=== PATIENT | male | born 1945 | race Caucasian/White ===

== ENCOUNTER 2018-06-13 02:55 | Inpatient (IN) ==
[2018-06-13] MEDS ORDERED: MoRPHine SULFATE 10 MG/ML CARP/VIAL IV STA (03:28)
[2018-06-13] MEDS ORDERED: SODIUM CHLORIDE 0.9% 1000ML 1,000 ML IV ONE (03:28)
[2018-06-13 03:43] LABS: Basophils # (auto) 0.05 K/uL (0-0.2); Basophils % (auto) 0.4 %; Eosinophils # (auto) 0.15 K/uL (0-0.5); Eosinophils % (auto) 1.1 %; Hematocrit (blood only) 45.6 % (42-52); Hemoglobin 15.5 g/dL (14.0-18.0); Immature Granulocytes # (auto) 0.06 K/uL (0.00-0.02); Immature Granulocytes % (auto) 0.4 %; Lymphocytes # (auto) 3.19 K/uL (1.2-3.4); Lymphocytes % (auto) 22.5 %; Mean Corpuscular Volume 91.6 fL (80-100); Mean Platelet Volume 10.2 fL (7.4-10.4); Monocytes # (auto) 1.03 K/uL (0.11-0.59); Monocytes % (auto) 7.3 %; Neutrophils # (auto) 9.71 K/uL (1.4-6.5); Neutrophils % (auto) 68.3 %; Platelet Count 195 K/uL (130-400); Red Blood Count 4.98 M/uL (4.7-6.1); White Blood Count 14.19 K/uL (4.8-10.8)
[2018-06-13 03:52] LABS: iSTAT Ionized Calcium 1.15 mmol/l (1.12-1.32)
[2018-06-13] MEDS ORDERED: fentaNYL citrate 100 MCG/2 ML VIAL IV STA (03:57)
[2018-06-13 04:00] LABS: Alanine Aminotransferase 26 U/L (12-78); Albumin Level 3.4 gm/dl (3.4-5.0); Aspartate Aminotransferase 14 U/L (15-37); Bilirubin Direct < 0.1 mg/dl (0-0.2); Blood Urea Nitrogen 13 mg/dl (7-18); Calcium 8.7 mg/dl (8.5-10.1); Carbon Dioxide 27 mmol/L (21-32); Chloride 105 mmol/L (98-107); Creatinine Clr Calc Pharmacy 65.5 ml/min; Est GFR (African American) 85.7; Glucose 132 mg/dl (70-99); Potassium 3.6 mmol/L (3.5-5.1); Sodium 138 mmol/L (136-145)
[2018-06-13 04:03] LABS: Alkaline Phosphatase 81 U/L (45-117); Bilirubin,Total 0.3 mg/dl (0.2-1); Total Protein 7.4 gm/dl (6.4-8.2)
[2018-06-13] MEDS ORDERED: OPTIRAY 320 125ml IV PRN (04:05)
[2018-06-13] MEDS ORDERED: SODIUM CHLORIDE 0.9% 1000ML 1,000 ML IV SCH (04:30)
[2018-06-13] MEDS ORDERED: HYDROmorphone INJ 1 MG/ML SYRINGE IV STA (04:37)
[2018-06-13 04:53] LABS: Prothrombin Time 10.1 Seconds (9.0-12.0)
--- NOTE | 2018-06-13 05:36 | History & Physical Report ---
Date of Service June 13, 2018 Assessment & Plan (1) Incarcerated ventral hernia: pt with signs/symptoms of ischemia unable to reduce ct scan reviewed will need OR for ex-lap /cain JORGE ALBERTO. team called discussed options/risks ( bleeding/infection/dvt/pe/mi/cva/injury to other organs, possible bowel resection etc... questions answered. pt agreeable. History of Present Illness Primary Care Provider: Serenity Beebe pt with acute onset of severe 9/10 mid abdominal pain around 9 pm this evening. was out with family eating pizza earlier. no hx of same. +nausea. Allergies Allergy/AdvReac Type Severity Reaction Status Date / Time Penicillins Allergy Intermediate Swelling Verified 06/13/18 03:54 of Lip/Tongue/Throat Home Medications Home Medications Medication Instructions Recorded Confirmed Type No Known Home Medications 06/13/18 06/13/18 History Past Med/Surg History Social History Feels Safe at Home: Yes Smoking Status: Current every day smoker Review of Systems All systems reviewed & are unremarkable except as noted in HPI & below Physical Exam 2 Vital Signs (Past 24 Hours): Last Vital Signs Temp 36.4 C L 06/13/18 03:01 Pulse 76 06/13/18 03:48 Resp 24 06/13/18 03:48 BP 109/77 06/13/18 03:48 Pulse Ox 96 06/13/18 03:48 Physical Exam: pt writhing in pain +distress holding mid abdomen Heent: Perrla. eomi. heart: regular/tachy lungs: clear b/l abdomen: +distended. + incarcerated mid abdominal hernia. also has large right flank hernia ext: no edema.
--- NOTE | 2018-06-13 05:51 | Anesthesiology Consultation ---
Date of Service June 13, 2018 The patient does not regularly follow up with a primary care provider. Patient' s SpO2 is 99 on 5 L face mask in preop holding. Assessment & Plan (1) Encounter for pre-operative examination: Chart Review Chart Review: Acceptable Risk for Surgery Consults Requested none ASA [id number] Proposed Anesthesia Anesthesia Type: General Risk / Benefits Reviewed With: PT / POA / Parent / Guardian, Accepts Plan and Informed Consent Obtained NPO Date Last Intake of Fluids: 06/13/18 Time Last Intake of Fluids: 04:30 Last Intake of Fluids Comment: sip water Date Last Intake of Solids: 06/12/18 Time Last Intake of Solids: 22:30 Last Intake of Solids Comment: pizza History Surgery Operation Date: 06/13/18 06:00 Proposed Procedures p Exploratory Laparotomy - David Alva DO Height/Weight Height: 5 ft 6 in Weight: 79.5 kg Allergies Allergy/AdvReac Type Severity Reaction Status Date / Time Penicillins Allergy Intermediate Swelling Verified 06/13/18 03:54 of Lip/Tongue/Throat Medications Home Medications Medication Instructions Recorded Confirmed Last Taken No Known Home Medications 06/13/18 06/13/18 Unknown Active Medications Generic Name Dose Route Start Last Admin Trade Name Freq PRN Reason Stop Dose Admin Sodium Chloride 1,000 mls @ 125 mls/hr 06/13/18 04:30 06/13/18 04:31 Nss 1000ml IV 07/13/18 04:29 125 mls/hr .Q8H BRANDIE Administration Ioversol 117 ml 06/13/18 04:05 06/13/18 04:05 Optiray 320 125ml IV 06/17/18 04:04 1 ml ONCE PRN Administration Interaction Checking Past Medical History Medical History Arthritis knees History of kidney cancer Obesity enlarged abdomen Smoker Past Surgical History Surgical History History of exploratory laparotomy patient had SBO 10 years ago History of laparoscopic cholecystectomy History of nephrectomy, unilateral R kidney due to cancer Past Anesthesia History No Hx of Anesthesia Complications and No Family Hx of Anesthesia Complications History of PONV No Motion Sickness Screening History of Motion Sickness: No Social History 50 years Smoking Status: Current every day smoker Smoking cigarettes per day: 1/2 ppd Hx Alcohol Use: Yes Alcohol type: beer alcohol intake frequency: a few times a week Exercise / Class Metabolic Activity III < 4 Walking/Shop/Light housework no chest pain or sob Review of Systems patient has abdominal pain, no chest pain or sob Physical Exam Vital Signs Last Vital Signs Temp 36.4 C L 06/13/18 03:01 Pulse 89 06/13/18 05:35 Resp 24 06/13/18 05:35 BP 120/69 06/13/18 05:35 Pulse Ox 88 L 06/13/18 05:35 Constitutional + acute distress (patient with abd pain) ENMT Mouth: + edentulous Thyromental Distance: > or= 3.5 Finger Breadths Mallampati Class: II NG in place Neck + facial hair Respiratory normal respiratory effort Auscultation: + diminished lung sounds Cardiovascular Rate/Rhythm: regular rate and regular rhythm Neurologic moves all extremities Psychiatric Orientation: alert and oriented x 3 Testing Electrocardiogram Date: 06/13/18 Findings: + NSR @ (80) inferior infarct, age undetermined anterior infarct, age undetermined Chest X-Ray Date: 06/13/[address] Laboratory Results 06/13/18 03:32 06/13/18 03:32 PT 10.1 Seconds (9.0-12.0) 06/13/18 03:32 INR 1.0 (0.9-1.1) 06/13/18 03:32 APTT 27.0 Seconds (21.0-31.0) 06/13/18 03:32 06/13/18 03:38 POC Glucose (other) 139 H
[2018-06-13] MEDS ORDERED: fentaNYL citrate 100 MCG/2 ML VIAL ONE (06:09)
[2018-06-13] MEDS ORDERED: SUCCINYLCHOLINE CHLORIDE 20 MG/ML 10 ML VIAL ONE (06:09)
[2018-06-13] MEDS ORDERED: PROPOFOL IV EMULSION 10 MG/ML 20 ML VIAL IV ONE (06:09)
[2018-06-13] MEDS ORDERED: LIDOCAINE HCL 2% 2 ML VIAL/AMP(20MG/ML) INFIL ONE (06:09)
[2018-06-13] MEDS ORDERED: CLINDAMYCIN 600 MG/54 ML D5W IV ONE (06:27)
[2018-06-13] MEDS ORDERED: CLINDAMYCIN PHOS 300 MG/2 ML VIAL ONE (06:29)
--- NOTE | 2018-06-13 06:59 | XRay Report ---
SINGLE VIEW CHEST CLINICAL HISTORY: Preoperative examination. An enteric tube placement. FINDINGS: An AP, portable, upright chest radiograph is compared to study dated 07/31/2006. The examina tion is degraded by portable technique and patient rotation. An enteric tube has been placed. The ti p projects below the diaphragm over the stomach. The heart is mildly enlarged. There is atherosclerot ic calcification with uncoiling of the thoracic aorta the pulmonary vasculature is noncongested. Slot Technician kojo additional thickening is similar to previous. There is bibasilar scarring/atelectasis. No airspac e consolidation or large pleural effusion is identified. A calcified nodule is noted at the medial ri ght lung base. No pneumothorax is seen. The skeletal structures are osteopenic. The bony thorax is gr ossly intact. Arthritic change is noted in the shoulders. Cholecystectomy clips are noted in the righ t upper quadrant. IMPRESSION: 1. An enteric tube has been placed. The tip projects below the diaphragm. 2. Cardiac enlargement without radiographic evidence of congestive failure. 2. No airspace consolidation or large pleural effusion is identified. Electronically signed by: Benjy Hernandez M.D. 06/13/2018 6:57 AM
[2018-06-13] MEDS ORDERED: DEXAMETHASONE SOD INJ 4 MG/ML VIAL ONE (07:03)
[2018-06-13] MEDS ORDERED: ONDANSETRON INJ 2 MG/ML 2 ML VIAL ONE (07:04)
--- NOTE | 2018-06-13 07:04 | Emergency Department Note ---
Entered by Mayco Oconnell acting as a scribe for ED Provider Note Name: Sonu Knox Age: 72 Arrives Via: Private vehicle Informant: Patient CC: Abdominal pain HPI: The patient is a 72 year old male who presents to ER via private vehicle with family due to complaints of waxing and waning central abdominal pain that began tonight. Patient adds that the pain radiates to the right side of his abdomen. He states he has had a right wall abdominal hernia for the past ten years but that it is sticking out more than usual. Patient denies using any OTC pain medications for his symptoms. Patients past medical history also includes SBO five years ago, right nephrectomy, and cholecystectomy. He states each of his procedures were done at [facility]. Patient denies having a bowel movement in the past day. He states he is a smoker and drinks alcohol on the weekends. He adds that he has a penicillin allergy. Patient denies urinary symptoms, diarrhea, nausea, or fevers. He also denies a history of heart problems, HTN, or kidney failure. ROS: See above HPI for pertinent positives & negatives. A total of 10 systems reviewed and were otherwise negative. Past Medical History: SBO Past Surgical History: Right nephrectomy and cholecystectomy Family History: None Social History: Lives with family Home Medications: None Allergies None Physical: Vitals: BP = 109/77 P = 76 Resp = 24 Temp = 97.5 O2 Sat = 96 Delivery = Room Air Exam: GENERAL: Patient is uncomfortable appearing and in moderate distress. EYES: No scleral icterus, unremarkable pupils. ENT: Mucous membranes moist, no nasal congestion. NECK: No masses appreciated, no meningismus, trachea is midline. RESPIRATORY: No dyspnea. Clear to auscultation and equal bilaterally. No wheeze , no rhonchi. CARDIOVASCULAR: Regular rate and rhythm. No murmurs, rubs, gallops appreciated. GASTROINTESTINAL: Large right abdominal wall hernia, right ventral hernia with distension and tenderness to palpation otherwise abdomen soft, no peritonitis. Hyperactive bowel sounds. No masses appreciated. BACK: No midline tenderness, no CVA tenderness EXTREMITIES: Normal motion all extremities, no cyanosis, no edema. NEUROLOGIC: Alert and oriented, no acute motor or sensory deficits, no focal weakness, cranial nerves grossly intact. SKIN: No rash, no jaundice, no diaphoresis. ED Course: Prior Medical Record, Triage/Nursing Notes, Medications, Allergies reviewed by Me Vital Signs: reviewed and remarkable for wnl Labs: Reviewed and remarkable for normal cbc, bmp, lft, lipase, LA Interventions: Saline Lock, NSS bolus, Morphine 8mg IV, Fentanyl 100mcg IV, Dilaudid 1 G IV, NG Tube Imaging: X ray results are stated below per my interpretation: Chest: 1 view: No infiltrate, no effusion, normal cardiac border. [employer] Radiologist interpretation reviewed by me: CT ABDOMEN & PELVIS With Contrast: "Large umbilical hernia containing dilated and decompressed small bowel, consistent with small bowel obstruction. Transition point is at the hernia neck. No evidence for ischemia." Radiologist: Timoteo Gerber MD EKG: Per My Interpretation: NSR 80bpm, no ectopy, no ischemia, no recent for comparison. QTC 440. Consults: 0443: I reviewed the patient's case with Dr. Alva. He will evaluate the patient at bed-side. Times: 0313: Past medical records reviewed. The patient was evaluated in room B7 , and a complete history and physical examination were performed. 0412: I reevaluated the patient. He is still hurting significantly. Patient has significant tenderness to palpation over ventral hernia. I am unable to reduce the hernia. 0435: NG Tube was placed. Patient intially started putting out but now it is blocked. Nursing staff is trying to resolve the blockage. Patient states his pain is continuing and worsening in ventral abdomen. 0453: Nursing is working on flushing the patient's NG tube. 0512: Patient has put out almost a liter from NG tube. He states he is still in significant pain. Patient is awaiting bed-side evaluation by Dr. Alva. 0526: General surgery is at bed-side. Patient will be transferred to the OR for an ischemic incarcerated bowel. Nursing staff is trying to suck out any remaining bowel contents. Blood pressure: Normal. No Referral necessary Disposition: Transfer to OR Differentials: Bowel obstruction, incarcerated bowel, pancreatitis, liver disease, intra-abdominal infection, gastroenteritis, amongst other pathologies. Medical Decision Makin yr old male arrives with acute anterior abdominal pain and nausea. History of right nephrectomy 20 yrs ago with SBO requiring surgery 10 yrs ago. Arrives with exam consistent with obstruction and a large right hernia easily reducible but unable to reduce very painful anterior ventral hernia. Given multiple rounds IV narcotics for pain control. LA initial wnl. CT with anterior hernia as transition point for SBO, no ischemia noted. With persistent pain and exam findings I feel he likely does have developing ischemia of what is clearly incarcerated ventral hernia thus Gen Surg paged. NG tube placed and after extensive flushing/clearing of tubing by nursing they were able to get >> 1L gastric output continuing chunks of pizza (no blood noted). Gen Surg at bedside and agree with assessment and will plan to take emergently to OR for definitive management. Patient was put on NC O2 after multiple narcotics due to mild hypoxia though still protecting airway well. Impression: Incarcerated Incisional Hernia Small Bowel Obstruction Acute Ischemia of Small Intestine Critical Care: I have personally spent greater than 45 minutes of critical care time in the direct management of this patient. Acute bowel ischemia of ventral hernia secondary to incarcerated bowel and resultant SBO requiring emergent transfer to OR with surgeon. This was a life/limb threatening event. This includes time spent evaluating patient, direct bedside care, chart review, placing orders, interpretation of diagnostic studies, discussion with consultants, patient, and family members, as well as other required patient management activities. This 45 minutes is in excess of all separately billable procedures. Roman West MD The scribe's documentation has been prepared under my direction and personally reviewed by me in its entirety. I confirm that the note above accurately reflects all work, treatment, procedures, and medical decision making performed by me. Impression & Plan Incarcerated incisional hernia, Small bowel obstruction, Acute ischemia of small intestine Past Med/Surg History Medical History Arthritis knees History of kidney cancer Obesity enlarged abdomen Smoker Surgical History History of exploratory laparotomy patient had SBO 10 years ago History of laparoscopic cholecystectomy History of nephrectomy, unilateral R kidney due to cancer Social History Feels Safe at Home: Yes Smoking Status: Current every day smoker Cigarettes per Day: 1/2 ppd Hx Alcohol Use: Yes Alcohol type: beer Alcohol Intake Frequency: a few times a week Results & Data Vital Signs Vital Signs - 24 hr 06/13/18 03:01 06/13/18 03:48 06/13/18 05:35 Temperature 36.4 C L Temperature Source Oral Sepsis Recent Fever Within 48 Hours No Sepsis Action Taken by Nursing No Action Required Pulse Rate 86 89 Pulse Rate [Finger] 76 Respiratory Rate 18 24 24 Respiratory Effort / Characteristics Non-Labored Spontaneous Respiratory Depth Normal Respiratory Pattern Regular Blood Pressure 132/81 120/69 Blood Pressure [Left Arm] 109/77 Blood Pressure Mean 98 Blood Pressure Mean [Left Arm] 87 Blood Pressure Position Sitting Pulse Oximetry 97 96 88 L Oxygen Delivery Method Room Air Room Air Laboratory Data Result diagrams: 06/13/18 03:32 06/13/18 03:32 Lab Results 06/13/18 06/13/18 06/13/18 Range/Units 03:32 03:32 03:32 WBC 14.19 H (4.8-10.8) K/uL RBC 4.98 (4.7-6.1) M/uL Hgb 15.5 (14.0-18.0) g/dL POC Hgb (14.0-18.0) g/dl Hct 45.6 (42-52) % POC Hct (42-52) % MCV 91.6 (80-100) fL MCH 31.1 (25-34) pg MCHC 34.0 (32-36) g/dL RDW Std Deviation 47.0 H (36.4-46.3) fL RDW Coeff of Gabriela 14.0 (11.5-14.5) % Plt Count 195 (130-400) K/uL MPV 10.2 (7.4-10.4) fL Immature Gran % (Auto) 0.4 % Neut % (Auto) 68.3 % Lymph % (Auto) 22.5 % Aurora % (Auto) 7.3 % Eos % (Auto) 1.1 % Baso % (Auto) 0.4 % Immature Gran # (Auto) 0.06 H (0.00-0.02) K/uL Neut # (Auto) 9.71 H (1.4-6.5) K/uL Lymph # (Auto) 3.19 (1.2-3.4) K/uL Aurora # (Auto) 1.03 H (0.11-0.59) K/uL Eos # (Auto) 0.15 (0-0.5) K/uL Baso # (Auto) 0.05 (0-0.2) K/uL PT (9.0-12.0) Seconds INR (0.9-1.1) APTT (21.0-31.0) Seconds PTT Ratio POC Sodium (135-144) mEq/L Sodium 138 (136-145) mmol/L POC Potassium (3.3-5.0) mEq/L Potassium 3.6 (3.5-5.1) mmol/L POC Chloride (101-112) mEq/L Chloride 105 (98-107) mmol/L Carbon Dioxide 27 (21-32) mmol/L POC Total CO2 (24-31) mEq/l Anion Gap 6.0 (3-11) POC Anion Gap (16-25) mmol/L POC BUN (7-18) mg/dl BUN 13 (7-18) mg/dl Creatinine 1.01 (0.6-1.4) mg/dl POC Creatinine (0.6-1.3) mg/dl Est Cr Clr Drug Dosing 65.5 ml/min Est GFR ( Amer) 85.7 Est GFR (Non-Af Amer) 74.0 BUN/Creatinine Ratio 13.0 (10-20) Glucose 132 H (70-99) mg/dl POC Glucose (other) (70-99) mg/dl Lactate 1.5 (0.4-2.0) mmol/L Calcium 8.7 (8.5-10.1) mg/dl POC Ioniz Calcium Chasidy (1.12-1.32) mmol/l Total Bilirubin 0.3 (0.2-1) mg/dl Direct Bilirubin < 0.1 (0-0.2) mg/dl AST 14 L (15-37) U/L ALT 26 (12-78) U/L Alkaline Phosphatase 81 (45-117) U/L Total Protein 7.4 (6.4-8.2) gm/dl Albumin 3.4 (3.4-5.0) gm/dl Lipase 168 (73-393) U/L 06/13/18 06/13/18 Range/Units 03:32 03:38 WBC (4.8-10.8) K/uL RBC (4.7-6.1) M/uL Hgb (14.0-18.0) g/dL POC Hgb 16.0 (14.0-18.0) g/dl Hct (42-52) % POC Hct 47 (42-52) % MCV (80-100) fL MCH (25-34) pg MCHC (32-36) g/dL RDW Std Deviation (36.4-46.3) fL RDW Coeff of Gabriela (11.5-14.5) % Plt Count (130-400) K/uL MPV (7.4-10.4) fL Immature Gran % (Auto) % Neut % (Auto) % Lymph % (Auto) % Aurora % (Auto) % Eos % (Auto) % Baso % (Auto) % Immature Gran # (Auto) (0.00-0.02) K/uL Neut # (Auto) (1.4-6.5) K/uL Lymph # (Auto) (1.2-3.4) K/uL Aurora # (Auto) (0.11-0.59) K/uL Eos # (Auto) (0-0.5) K/uL Baso # (Auto) (0-0.2) K/uL PT 10.1 (9.0-12.0) Seconds INR 1.0 (0.9-1.1) APTT 27.0 (21.0-31.0) Seconds PTT Ratio 1.0 POC Sodium 140 (135-144) mEq/L Sodium (136-145) mmol/L POC Potassium 3.5 (3.3-5.0) mEq/L Potassium (3.5-5.1) mmol/L POC Chloride 102 (101-112) mEq/L Chloride (98-107) mmol/L Carbon Dioxide (21-32) mmol/L POC Total CO2 28 (24-31) mEq/l Anion Gap (3-11) POC Anion Gap 15.0 L (16-25) mmol/L POC BUN 12 (7-18) mg/dl BUN (7-18) mg/dl Creatinine (0.6-1.4) mg/dl POC Creatinine 1.0 (0.6-1.3) mg/dl Est Cr Clr Drug Dosing ml/min Est GFR ( Amer) Est GFR (Non-Af Amer) BUN/Creatinine Ratio (10-20) Glucose (70-99) mg/dl POC Glucose (other) 139 H (70-99) mg/dl Lactate (0.4-2.0) mmol/L Calcium (8.5-10.1) mg/dl POC Ioniz Calcium Chasidy 1.15 (1.12-1.32) mmol/l Total Bilirubin (0.2-1) mg/dl Direct Bilirubin (0-0.2) mg/dl AST (15-37) U/L ALT (12-78) U/L Alkaline Phosphatase (45-117) U/L Total Protein (6.4-8.2) gm/dl Albumin (3.4-5.0) gm/dl Lipase (73-393) U/L Administered Medications Sodium Chloride (Nss 1000ml) 1,000 mls @ 125 mls/hr IV .Q8H BRANDIE Stop: 07/13/18 04:29 Last Admin: 06/13/18 04:31 Dose: 125 mls/hr Ioversol (Optiray 320 125ml) 117 ml IV ONCE PRN PRN Reason: Interaction Checking Stop: 06/17/18 04:04 Last Admin: 06/13/18 04:05 Dose: 1 ml Discontinued Medications Fentanyl Citrate (Fentanyl Citrate) 100 mcg IV NOW STA Stop: 06/13/18 03:58 Last Admin: 06/13/18 04:19 Dose: 100 mcg Hydromorphone HCl (Dilaudid) 1 mg IV NOW STA Stop: 06/13/18 04:38 Last Admin: 06/13/18 05:13 Dose: 1 mg Sodium Chloride (Nss 1000ml) 1,000 mls @ 999 mls/hr IV .Q1H1M ONE Stop: 06/13/18 04:28 Last Admin: 06/13/18 03:46 Dose: 999 mls/hr Morphine Sulfate (Morphine Sulfate) 8 mg IV NOW STA Stop: 06/13/18 03:29 Last Admin: 06/13/18 03:46 Dose: 8 mg Discharge Plan Visit Data Chief Complaint: Abdominal Pain Stated Complaint: ABD PAIN WITH HERNIA ED Provider: Roman West Discharge Problem: Incarcerated incisional hernia, Small bowel obstruction, Acute ischemia of small intestine Patient Disposition: Being Evaluated by Surgeon Discharge Instructions Interventions: ED Discharge Assessment Last Done: 06/13/18 05:35 The scribe's documentation has been prepared under my direction and personally reviewed by me in its entirety. I confirm that the note above accurately reflects all work, treatment, procedures, and medical decision making performed by me.
[2018-06-13] MEDS ORDERED: ePHEDrine sulfate 50 MG/ML AMP IV PRN (07:38)
[2018-06-13] MEDS ORDERED: HYDROmorphone INJ 1 MG/ML SYRINGE IV PRN (07:38)
[2018-06-13] MEDS ORDERED: PHENYLEPHRINE 100MCG/ML 5ML SYR IV PRN (07:38)
[2018-06-13] MEDS ORDERED: LABETALOL HCL IV 5 MG/ML 20ML IV PRN (07:38)
[2018-06-13] MEDS ORDERED: MEPERIDINE HCL 25 MG/ML CARP IV PRN (07:38)
[2018-06-13] MEDS ORDERED: ONDANSETRON INJ 2 MG/ML 2 ML VIAL IV PRN ×2 (07:38→09:16)
[2018-06-13] MEDS ORDERED: fentaNYL citrate 100 MCG/2 ML VIAL IV PRN (07:38)
[2018-06-13] MEDS ORDERED: ATROPINE SULFATE 0.1 MG/ML 10ML SYR IV PRN (07:38)
--- NOTE | 2018-06-13 07:44 | CT Scan Report ---
CT SCAN OF THE ABDOMEN AND PELVIS WITH IV CONTRAST CLINICAL HISTORY: Generalized abdominal pain. COMPARISON STUDY: Abdominal radiograph dated 08/03/2006. TECHNIQUE: Following the IV administration of 98 cc of Optiray 320, CT scan of the abdomen and pelvi s is performed from the lung bases to the proximal femora. Images are reviewed in the axial, sagittal , and coronal planes. IV contrast was administered without complication. A dose lowering technique wa s utilized adhering to the principles of ALARA. The examination is modestly degraded by motion artifa ct. CT DOSE: 726.13 mGy.cm FINDINGS: Lung bases: The heart is normal in size and without pericardial effusion. There is a 1.7 cm densely c alcified nodule the right lung base. No airspace consolidation or pleural effusion is identified. Liver: The contrast-enhanced liver is normal in size, contour, and attenuation. There is mild central intrahepatic biliary ductal dilatation. The hepatic veins and portal veins are patent. Gallbladder: Surgically absent noting clips in the gallbladder fossa. Spleen: Normal in size and attenuation. Pancreas: Atrophic and grossly unremarkable. Adrenal glands: Unremarkable. Kidneys: The right kidney is not identified and presumed surgically absent. There is inferior locatio n of the left kidney which demonstrates cortical atrophy and is without hydronephrosis. The left kidn ey enhances homogeneously. Left renal cysts measure up to 5.3 cm. There is a 3.1 cm lesion in the int erpolar left kidney seen on image #[address] which does [address] CT criteria for a simple cyst. Additional subcentimeter cortical hypodensities likely represent cysts but are too small for definitive characte rization. Abdominal vasculature: There is moderate to advanced atherosclerotic calcification of the abdominal a hasmukh. A small thrombosed saccular aneurysm of the distal abdominal aorta is seen on image #220 and me asures up to 2.0 cm. Bowel: There is a large complex umbilical/periumbilical hernia which contains small bowel loops. Ther e is a discrete transition point identified involving this hernia on image were 255. The upstream sma ll bowel loops and stomach are distended and fluid-filled. The proximal small bowel loops measure up to 3.8 cm in diameter. The small bowel loops exiting the hernia sac and colon are decompressed, and t he appearance is consistent with a small bowel obstruction. An additional decompressed loop of small bowel is present within the same hernia sac. There is no pneumatosis intestinalis or portal venous ga s. No focally thick walled bowel loops are identified. A large hernia in the right lateral abdominal wall contains loops of small bowel and the cecum. The appendix is well-visualized and normal. Peritoneum: There is no intraperitoneal free air or abdominal ascites. There are at least 3 large sup raumbilical hernias which do not contain bowel loops. There is also a large infraumbilical hernia. Lymphadenopathy: None. Pelvic viscera: The prostate gland is diminutive and heterogeneous. The bladder is normal as imaged. There is a large fat-containing left inguinal hernia. Skeletal structures: The skeletal structures are osteopenic. Moderate lumbosacral spondylosis is obse rved. No lytic or blastic lesions are seen. IMPRESSION: 1. Findings are consistent with a high-grade small bowel obstruction. 2. There is a complex umbilical/periumbilical hernia which contains small bowel loops. An incarcerate d loop within this hernia represents the transition point of the bowel obstruction. 3. There is no intraperitoneal free air. No pneumatosis intestinalis, portal venous gas, or focally t hick walled bowel loop is identified. 4. There is a large right lateral abdominal wall hernia which contains loops of small bowel and the c ecum. 5. There are numerous additional supraumbilical hernias as well as a large infraumbilical hernia. 6. The right kidney is surgically absent. 7. There is a 3.1 cm lesion in the interpolar left kidney which does not meet CT criteria for simple cyst. Although this could represent a complex/hemorrhagic cyst, a renal neoplasm could appear similar . Correlation with any prior outside imaging studies is recommended. If no prior studies can be obtai kami, a follow-up renal protocol CT or MRI is recommended as neoplasm cannot be excluded. 8. 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 9. Additional findings as above. Electronically signed by: Benjy Hernandez M.D. 06/13/2018 7:42 AM
--- NOTE | 2018-06-13 07:49 | Operative Report ---
Post Operative Report Pre & Post Diagnosis Operation Date: 06/13/18 06:00 Pre-Op Diagnosis: Incarcerated ventral hernia Post-Op Diagnosis: Incarcerated ventral hernia Procedure Operation Date: 06/13/18 06:00 Actual Procedures p Exploratory Laparotomy, Release of small bowel obstruction, repair of incisional hernia times 3, Enterolysis - David Alva DO Surgeon David Alva DO Custom Miller n/a Estimated Blood Loss 10 Findings Consistent with Post-Op Diagnosis Specimens none Description of Procedure After informed consent was obtained the patient was taken to the operating room and placed in supine position. After successful intubation a Pagan catheter was placed and the abdomen was shaved and sterilely prepped and draped in usual fashion. After the paralytic agent the hernia was able to be manually reduced prior to incision. I then made a midline incision with a 10 blade scalpel from above his umbilicus down and around his umbilicus. We carried this down through the soft tissue using cautery. I encountered a hernia sac which I opened up using cautery. I was then able to enter the abdominal cavity. There were actually 3 hernias one at the umbilicus one at the area of incarceration and one at the superior aspect of the midline. I completely opened up and connected these fascial defects making one large fascial defect. I took down all of the hernia sacs using cautery. Once in the abdominal cavity I was able to find the area where he was obstructed. This was now reduced ...there was a line demarcating where the obstruction had been with some bruising although no serosal damage or tears. There was no infarcted bowel. I ran the entire length of the small bowel and other than some adhesions which I lysed there was no other abnormalities. There was a large right flank hernia which has been chronic in nature and certainly this would not be the appropriate time to try and repair this. There was some omental incarceration as well which I excised using electrocautery. I was able to grasp the fascial edges using dmitri clamps and skeletonized the fascia in 360 degrees. I then used #1 Ethibond in interrupted [id number] fashion to primarily close the defect. I did not feel it would be appropriate to place mesh at this time. Once I had the defect completely closed we thoroughly irrigated the wound. I closed the deep layers of the wound using 2-0 Vicryl and the skin closed using skin marcie. Silver dressing was applied. The patient was awakened extubated and transferred recovery in stable condition. I attest to the content of the Intraoperative Record and any orders documented therein. Any exceptions are noted below.
--- NOTE | 2018-06-13 08:41 | Anesthesiology Progress Note ---
Date of Service June 13, 2018 Anesthesia Post Procedure Vital Signs Vital Signs: Temp Pulse Pulse Pulse Resp BP BP 06/13/18 08:30 95 H 13 138/79 06/13/18 08:20 95 H 12 139/80 06/13/18 08:10 95 H 12 130/79 06/13/18 08:00 94 H 12 139/78 06/13/18 07:54 36.1 C L 92 H 16 141/82 H 06/13/18 05:35 89 24 120/69 06/13/18 03:48 76 24 109/77 06/13/18 03:01 36.4 C L 86 18 132/81 Pulse Ox 06/13/18 08:30 97 06/13/18 08:20 99 06/13/18 08:10 98 06/13/18 08:00 97 06/13/18 07:54 99 06/13/18 05:35 88 L 06/13/18 03:48 96 06/13/18 03:01 97 Pain Intensity Abdomen: Pain Intensity: 4 Notes Mental Status: alert / awake / arousable and participated in evaluation Nausea / Vomiting: adequately controlled Pain: adequately controlled Airway Patency, RR, SpO2: stable & adequate BP & HR: stable & adequate Hydration State: stable & adequate Anesthetic Complications: no major complications apparent and Pt Satisfied with anesthetic care
[2018-06-13] MEDS ORDERED: ACETAMINOPHEN 1,000 MG/100 ML VIAL IV PRN (09:16)
[2018-06-13] MEDS ORDERED: MoRPHine SULFATE 4 MG/ML 1 ML CARP\\VIAL IV PRN (09:16)
[2018-06-13] MEDS: LACTATED RINGER'S 1,000 ML IV SCH ×2 (10:46→18:41)
--- NOTE | 2018-06-13 11:25 | Consultation ---
Date of Consultation June 13, 2018 Assessment & Plan (1) Incarcerated ventral hernia: (2) S/P exploratory laparotomy: Post op day# 0 S/P Exploratory lap, release SBO by Dr Alva EB#10ml -pain management per general surgery -wound management per general surgery -DVT prophylaxis per surgery - Lovenox SQ -incentive spirometry -monitor H&H for acute blood loss anemia (3) Renal cancer: (4) History of nephrectomy, unilateral: Hx R renal cancer s/p R nephrectomy CT Abd/pelvis: There is a 3.1 cm lesion in the interpolar left kidney which does not meet CT criteria for simple cyst. Although this could represent a complex/hemorrhagic cyst, a renal neoplasm could appear similar. Correlation with any prior outside imaging studies is recommended. If no prior studies can be obtained, a follow- up renal protocol CT or MRI is recommended as neoplasm cannot be excluded. -last abdominal CT scan found from 1997 did not mention L renal lesion -will need further follow up (5) Tobacco use: -recommend smoking cessation -denies nictotine patch DVT Prophylaxis -Lovenox SQ per surgery In past pt had followed with Dr Beebe for routine care - has not seen for years Pt was seen with Dr Inman. See addendum Pt will be followed by Dr Guerra during remaining hospital course. Supervising Physician Co-Signing Physician Notes I saw this patient with the physician psychologist research assistant, I participated in the history, physical, review of systems, and physical exam. I reviewed the medications with the patient and the physician psychologist research assistant and helped reconcile the medications. I helped take a detailed family and social history as well. I formulated the assessment and plan personally with the physician psychologist research assistant and went over it with the patient. History of Present Illness Reason for Consultation: Medical management consultation Attending Physician: David Alva, History of Present Illness Patient is a 72-year-old male with past medical history right renal cancer s/p right nephrectomy, abdominal hernia presented to ER with complaint of central abdominal pain. In ER was found to have SBO, incarcerated ventral hernia and patient was taken to the OR today and had exploratory laparoscopy, release small bowel obstruction, ventral hernia repair. Patient currently reports some central abdominal pain. Has NG tube in place. Denies nausea. Reports last BM 1 day ago. Has Pagan catheter in place. Denies fever/chills, WOODY, dizziness, CP , SOB, paresthesias, extremity edema. Allergies Allergy/AdvReac Type Severity Reaction Status Date / Time Penicillins Allergy Intermediate Swelling Verified 06/13/18 03:54 of Lip/Tongue/Throat Home Medications Home Medications Medication Instructions Recorded Confirmed Type No Known Home Medications 06/13/18 06/13/18 History Patient History Medical History Tobacco use (Chronic) History of nephrectomy, unilateral (Chronic) R kidney Renal cancer (Resolved) Arthritis knees Obesity enlarged abdomen Smoker Surgical History History of repair of rotator cuff (Resolved) History of cholecystectomy (Chronic) History of nephrectomy, unilateral (Chronic) R kidney due to cancer History of exploratory laparotomy (Resolved) 2006 - patient had SBO, lysis adhesions By Dr Orozco Social History Current Living Situation: Other Current Living Situation Comment: LIVES WITH HIS EX- Other Information That Helps Us Care for You: No Feels Safe at Home: No Is there a partner from a previous relationship who is making you feel unsafe now?: No Any Concerns about Your Family Situation: No Would You Like to Speak to Someone About Your Situation: No Safety Concerns: Feels Safe At This Time Smoking Status: Current every day smoker Tobacco Type: cigarettes Cigarettes per Day: 0.5ppd x 10-20 years Do You Dip or Chew Tobacco: No Second Hand Exposure: No Tobacco Cessation Education Requested by Patient: No Hx Alcohol Use: Yes Alcohol type: beer Alcohol Intake Frequency: other Alcohol Intake Frequency Comment: 5 beers once a week Hx Substance Use: Yes Beliefs That Will Affect Care: None Communication Ability: Effective Review of Systems As per HPI, otherwise negative Physical Exam 2 Vital Signs (Past 24 Hours): Last Vital Signs Temp 36.2 C L 06/13/18 08:40 Pulse 100 H 06/13/18 11:20 Resp 18 06/13/18 11:20 BP 121/81 06/13/18 11:20 Pulse Ox 97 06/13/18 11:20 Physical Exam: General: no apparent distress, WDWN Head: normocephalic, atraumatic Eyes: conjunctiva non-injected, anicteric ENT: normal inspection external ears, nose, +NG tube in place mucous membranes moist Neck: supple, trachea midline Lungs: clear, no respiratory distress CV: RRR, no murmur, no pretibial edema Abd: normal BS, Has abdominal binder in place, right lateral hernia noted, soft , tender to light palpation mid abdomen Ext: no cyanosis, no calf tenderness Neuro: A&O x 3, no focal deficits noted, normal affect Skin: warm, dry Results & Data Laboratory Results Short CBC 06/13/18 Range/Units 03:32 WBC 14.19 H (4.8-10.8) K/uL Hgb 15.5 (14.0-18.0) g/dL Hct 45.6 (42-52) % Plt Count 195 (130-400) K/uL BMP 06/13/18 03:32 Sodium 138 Potassium 3.6 Chloride 105 Carbon Dioxide 27 BUN 13 Creatinine 1.01 Glucose 132 H Calcium 8.7 Liver Function 06/13/18 Range/Units 03:32 Total Bilirubin 0.3 (0.2-1) mg/dl Direct Bilirubin < 0.1 (0-0.2) mg/dl AST 14 L (15-37) U/L ALT 26 (12-78) U/L Alkaline Phosphatase 81 (45-117) U/L Albumin 3.4 (3.4-5.0) gm/dl
[2018-06-13] MEDS: ENOXAPARIN INJ 40 MG/0.4 ML SYR SQ SCH (12:20)
[2018-06-13 12:43] LABS: Appearance Urine Clear (Clear); Bilirubin Urine Negative (Negative); Color Urine Yellow; Glucose Urine UA Negative (Negative); Ketones Urine Negative (Negative); Leukocyte Esterase Urine Negative (Negative); Nitrite Urine Negative (Negative); Protein Urine Negative (Negative); Urobilinogen Urine Positive (Negative); pH Urine 5.5 (4.5-7.5)
[2018-06-13] MEDS ORDERED: INFLUENZA VACCINE HIGH DOSE 65+ 0.5 ML SYR IM ONE (13:45)
[2018-06-13] MEDS ORDERED: INFLUENZA ADMINISTRATION CHARGE ONE (13:45)
[2018-06-13] MEDS: MoRPHine SULFATE 2 MG/ML CARP IV PRN (23:30)
[2018-06-14] MEDS: LACTATED RINGER'S 1,000 ML IV SCH ×3 (02:23→19:12)
[2018-06-14 06:10] LABS: Basophils # (auto) 0.02 K/uL (0-0.2); Basophils % (auto) 0.2 %; Eosinophils # (auto) 0.02 K/uL (0-0.5); Eosinophils % (auto) 0.2 %; Hematocrit (blood only) 37.1 % (42-52); Hemoglobin 12.4 g/dL (14.0-18.0); Immature Granulocytes # (auto) 0.02 K/uL (0.00-0.02); Immature Granulocytes % (auto) 0.2 %; Lymphocytes # (auto) 2.13 K/uL (1.2-3.4); Mean Corpuscular Hgb Conc 33.4 g/dL (32-36); Mean Corpuscular Volume 92.1 fL (80-100); Mean Platelet Volume 10.7 fL (7.4-10.4); Monocytes # (auto) 0.89 K/uL (0.11-0.59); Monocytes % (auto) 7.5 %; Neutrophils # (auto) 8.73 K/uL (1.4-6.5); Neutrophils % (auto) 73.9 %; Platelet Count 151 K/uL (130-400); RDW Coefficient of Variation 14.2 % (11.5-14.5); RDW Standard Deviation 47.9 fL (36.4-46.3); Red Blood Count 4.03 M/uL (4.7-6.1); White Blood Count 11.81 K/uL (4.8-10.8)
[2018-06-14 06:23] LABS: Albumin Level 2.3 gm/dl (3.4-5.0); BUN Creatinine Ratio 13.1 (10-20); Calcium 7.9 mg/dl (8.5-10.1); Creatinine Clr Calc Pharmacy 56.7 ml/min; Est GFR (African American) 74.1; Est GFR (Non-African American) 63.9; Potassium 3.9 mmol/L (3.5-5.1)
[2018-06-14 06:30] LABS: Albumin Globulin Ratio 0.8 (0.9-2); Bilirubin,Total 0.7 mg/dl (0.2-1); Total Protein 5.3 gm/dl (6.4-8.2)
[2018-06-14] MEDS: ACETAMINOPHEN 1,000 MG/100 ML VIAL IV SCH ×3 (07:48→21:43)
--- NOTE | 2018-06-14 08:07 | Anesthesiology Progress Note ---
Date of Service June 14, 2018 Anesthesia Post Procedure Vital Signs Vital Signs: Temp Pulse Pulse Resp BP Pulse Ox 06/14/18 07:41 37.6 C H 92 06/14/18 07:05 38.2 C H 86 18 115/72 90 06/14/18 03:57 37.3 C 96 H 18 110/65 93 06/13/18 23:18 37.4 C 89 18 96/61 L 94 06/13/18 15:51 37.0 C 98 H 20 127/81 91 06/13/18 12:23 100 H 18 119/77 93 06/13/18 11:20 100 H 18 121/81 97 06/13/18 11:10 36.3 C L 97 H 16 121/80 06/13/18 10:12 18 109/73 95 06/13/18 09:26 18 114/72 96 06/13/18 08:50 96 H 20 134/91 96 06/13/18 08:40 36.2 C L 95 H 20 119/86 97 06/13/18 08:30 95 H 13 138/79 97 06/13/18 08:20 95 H 12 139/80 99 06/13/18 08:10 95 H 12 130/79 98 Pain Intensity Abdomen: Pain Intensity: 4 Notes Mental Status: alert / awake / arousable and participated in evaluation Patient Amnestic to Procedure: Yes Nausea / Vomiting: adequately controlled Pain: adequately controlled Airway Patency, RR, SpO2: stable & adequate BP & HR: stable & adequate Hydration State: stable & adequate Anesthetic Complications: no major complications apparent
--- NOTE | 2018-06-14 09:09 | Surgery Progress Note ---
Date of Service June 14, 2018 Assessment & Plan (1) Incarcerated ventral hernia: pod 1 doing well will start clears d/c giordano increase activity Subjective feels much better than yesterday. no n/v. abdominal pain resolved other than some incisional pain Physical Exam 2 Vital Signs (Past 24 Hours): Last Vital Signs Temp 37.6 C H 06/14/18 07:41 Pulse 86 06/14/18 07:05 Resp 18 06/14/18 07:05 BP 115/72 06/14/18 07:05 Pulse Ox 92 06/14/18 07:41 Physical Exam: alert. nad abdomen: soft. expected tenderness
[2018-06-14] MEDS: ENOXAPARIN INJ 40 MG/0.4 ML SYR SQ SCH (10:37)
--- NOTE | 2018-06-14 11:02 | Hospitalist Progress Note ---
Date of Service June 14, 2018 Assessment & Plan (1) Incarcerated ventral hernia: (2) S/P exploratory laparotomy: Post op day#1 s/p exploratory lap, release SBO by Dr Alva -Pt is doing well post-operatively -EBL#10ml. Hgb stable at 12.4. Continue monitoring H&H -Per general surgery for pain control, wound care, anticoagulation and activities -Advanced to clears today -Advance activity (3) Renal cancer: (4) History of nephrectomy, unilateral: Hx R renal cancer s/p R nephrectomy CT Abd/pelvis: There is a 3.1 cm lesion in the interpolar left kidney which does not meet CT criteria for simple cyst. Although this could represent a complex/hemorrhagic cyst, a renal neoplasm could appear similar. Correlation with any prior outside imaging studies is recommended. If no prior studies can be obtained, a follow- up renal protocol CT or MRI is recommended as neoplasm cannot be excluded. -Last abdominal CT scan found from 1997 did not mention L renal lesion -Will need further follow up (5) Tobacco use: -Recommend smoking cessation -Denies nictotine patch DVT Prophylaxis -Lovenox SQ per surgery In past pt had followed with Dr Beebe for routine care - has not seen for years Pt will be followed by Dr Guerra during remaining hospital course. Supervising Physician Co-Signing Physician Notes Pt was seen and examined. Agreed with Cyndie MACARIO exam, assessment and plan. S/P day #1 of p Exploratory Laparotomy, Release of small bowel obstruction and repair of incisional hernia. No post op complication. Continue pain management. Diet as per surgery. Continue monitor closely. MD Mari Subjective Seen and examined. Feeling well today with minimal abdominal discomfort. Tolerating clear diet without nausea, vomiting. Voiding well after urinary giordano removed. No flatus or BM yet. Denies lightheadedness, chest pain, palpitations or SOB. Physical Exam 2 Vital Signs (Past 24 Hours): Last Vital Signs Temp 37.6 C H 06/14/18 07:41 Pulse 86 06/14/18 07:05 Resp 18 06/14/18 07:05 BP 115/72 06/14/18 07:05 Pulse Ox 92 06/14/18 07:41 Physical Exam: General Appearance: WD/WN, mild distress with movement Head: normocephalic, atraumatic Eyes: normal inspection, PERRL, EOMI ENT: hearing grossly normal, pharynx normal (moist mucous membranes) Neck: supple, no JVD, no adenopathy Respiratory/Chest: lungs clear to auscultation. No wheezes, rales or rhonci. No respiratory distress or accessory muscle use Cardiovascular: regular rate, rhythm, no murmur, normal peripheral pulses Abdomen/GI: normal bowel sounds, soft, tender to palpation of surgical site. Abdominal binder in place Extremities/Musculoskelatal: normal inspection, no calf tenderness, normal capillary refill, no pedal edema Neurologic/Psych: alert, normal mood/affect, oriented x 3 Skin: normal color, warm/dry Results & Data Laboratory Results Short CBC 06/14/18 Range/Units 05:15 WBC 11.81 H (4.8-10.8) K/uL Hgb 12.4 L D (14.0-18.0) g/dL Hct 37.1 L (42-52) % Plt Count 151 (130-400) K/uL BMP 06/14/18 05:15 Sodium 139 Potassium 3.9 Chloride 108 H Carbon Dioxide 25 BUN 15 Creatinine 1.14 Glucose 115 H Calcium 7.9 L Liver Function 06/14/18 Range/Units 05:15 Total Bilirubin 0.7 (0.2-1) mg/dl AST 136 H (15-37) U/L ALT 311 H (12-78) U/L Alkaline Phosphatase 78 (45-117) U/L Albumin 2.3 L (3.4-5.0) gm/dl
[2018-06-15] MEDS: MoRPHine SULFATE 2 MG/ML CARP IV PRN (02:58)
[2018-06-15] MEDS: LACTATED RINGER'S 1,000 ML IV SCH ×3 (03:05→23:36)
[2018-06-15] MEDS: ACETAMINOPHEN 1,000 MG/100 ML VIAL IV SCH ×3 (06:06→21:31)
[2018-06-15 06:36] LABS: Basophils # (auto) 0.04 K/uL (0-0.2); Basophils % (auto) 0.4 %; Eosinophils # (auto) 0.08 K/uL (0-0.5); Eosinophils % (auto) 0.8 %; Hematocrit (blood only) 36.6 % (42-52); Hemoglobin 12.1 g/dL (14.0-18.0); Immature Granulocytes # (auto) 0.03 K/uL (0.00-0.02); Immature Granulocytes % (auto) 0.3 %; Lymphocytes # (auto) 1.87 K/uL (1.2-3.4); Lymphocytes % (auto) 18.7 %; Mean Corpuscular Hgb Conc 33.1 g/dL (32-36); Mean Corpuscular Volume 92.7 fL (80-100); Monocytes # (auto) 0.82 K/uL (0.11-0.59); Monocytes % (auto) 8.2 %; Neutrophils # (auto) 7.18 K/uL (1.4-6.5); Neutrophils % (auto) 71.6 %; Platelet Count 129 K/uL (130-400); RDW Coefficient of Variation 14.1 % (11.5-14.5); Red Blood Count 3.95 M/uL (4.7-6.1); White Blood Count 10.02 K/uL (4.8-10.8)
[2018-06-15 07:06] LABS: BUN Creatinine Ratio 11.5 (10-20); Calcium 7.9 mg/dl (8.5-10.1); Creatinine Clr Calc Pharmacy 73.4 ml/min; Est GFR (African American) 99.5; Est GFR (Non-African American) 85.8; Potassium 3.8 mmol/L (3.5-5.1)
--- NOTE | 2018-06-15 09:32 | Hospitalist Progress Note ---
Date of Service June 15, 2018 Assessment & Plan (1) S/P exploratory laparotomy: POD #2 s/p exploratory lap, release SBO by Dr Alva -Doing well post-operatively -EBL#10ml. Hgb stable at 12.1. Continue monitoring H&H -Per general surgery for pain control, wound care, anticoagulation and activities -Advance diet as tolerated per surgery -Advance activity as tolerated (2) Incarcerated ventral hernia: -plan as above (3) History of nephrectomy, unilateral: Hx R renal cancer s/p R nephrectomy CT Abd/pelvis: There is a 3.1 cm lesion in the interpolar left kidney which does not meet CT criteria for simple cyst. Although this could represent a complex/hemorrhagic cyst, a renal neoplasm could appear similar. Correlation with any prior outside imaging studies is recommended. If no prior studies can be obtained, a follow- up renal protocol CT or MRI is recommended as neoplasm cannot be excluded. -Last abdominal CT scan found from 1997 did not mention L renal lesion -Will need further follow up as outpatient (4) Tobacco use: -Recommend smoking cessation -Denies nictotine patch DVT Prophylaxis -Lovenox SQ per surgery Disposition: To be determined by surgery Follow up: Dr Beebe for routine care - has not seen for years Pt seen in collaboration with Dr. Guerra, please see addendum Supervising Physician Co-Signing Physician Notes Pt was seen and examined. Agreed with Swetha exam, assessment and plan. S/P day #2 of p Exploratory Laparotomy, Release of small bowel obstruction and repair of incisional hernia. Pain control. Diet advanced as tolerated. Continue monitor. MD Mari Subjective Seen and examined in room 385-2. S/P Exp lap with SBO release POD #2. Patient offers no new complaints. Tolerated breakfast this morning. Denies f/c/ s, chest pain, sob, n/v/d, abdominal pain. Is passing flatus, but no BM. Has been up ambulating to bathroom and doing incentive spirometry. Voiding with out difficulty. Physical Exam 2 Vital Signs (Past 24 Hours): Last Vital Signs Temp 36.9 C 06/15/18 07:25 Pulse 76 06/15/18 07:25 Resp 18 06/15/18 07:25 BP 128/81 06/15/18 07:25 Pulse Ox 91 06/15/18 07:25 Constitutional: WD/WN, vitals as above well developed, + thin, cooperative and comfortable Eyes: PERRL, conjunctivae normal, anicteric sclerae Neck: trachea midline, no thyromegaly Respiratory: Auscultation: lungs clear to auscultation bilaterally Cardiovascular: RRR, no murmur, no edema Gastrointestinal (Abdomen): Inspection/Auscultation: + abdomen distended, + abdominal surgical incision and + hypoactive bowel sounds Percussion/ Palpation: abdomen soft Skin: no rashes, warm and dry Results & Data Laboratory Results Short CBC 06/15/18 Range/Units 06:09 WBC 10.02 (4.8-10.8) K/uL Hgb 12.1 L (14.0-18.0) g/dL Hct 36.6 L (42-52) % Plt Count 129 L (130-400) K/uL BMP 06/15/18 06:09 Sodium 139 Potassium 3.8 Chloride 109 H Carbon Dioxide 24 BUN 10 D Creatinine 0.88 Glucose 99 Calcium 7.9 L
--- NOTE | 2018-06-15 09:43 | Surgery Progress Note ---
Date of Service June 15, 2018 Assessment & Plan (1) Incarcerated ventral hernia: pod 2 keep on clears, advance slowly increase activity has abd binder as above. feeling well. no bm but increased flatus. no n/v. minimal pain will advance to full liquids awaiting full return of bowel fx Subjective scant flatus, pain control good, amb in main Physical Exam 2 Vital Signs (Past 24 Hours): Last Vital Signs Temp 36.9 C 06/15/18 07:25 Pulse 76 06/15/18 07:25 Resp 18 06/15/18 07:25 BP 128/81 06/15/18 07:25 Pulse Ox 91 06/15/18 07:25 Gastrointestinal (Abdomen): Inspection/Auscultation: + abdomen distended and + abdominal surgical incision (clean, dry, no erythema) Percussion/Palpation : abdomen soft
[2018-06-15] MEDS: ENOXAPARIN INJ 40 MG/0.4 ML SYR SQ SCH (11:14)
[2018-06-16] MEDS: ACETAMINOPHEN 1,000 MG/100 ML VIAL IV SCH ×3 (06:11→21:33)
--- NOTE | 2018-06-16 07:50 | Surgery Progress Note ---
Date of Service June 16, 2018 Assessment & Plan (1) Incarcerated ventral hernia: pod 3 repair of incarcerated hernia/s advance diet as yasmin, d/c IVF ambulate halls pt seen. as above. feeling well. wound looks good. +BM advance diet to regular likely ok for d/c tomorrow Subjective BM last evening, tolerated full liquids, increased flatus Physical Exam 2 Vital Signs (Past 24 Hours): Last Vital Signs Temp 37.0 C 06/15/18 22:44 Pulse 68 06/15/18 22:44 Resp 16 06/15/18 22:44 BP 122/70 06/15/18 22:44 Pulse Ox 91 06/15/18 22:44 Gastrointestinal (Abdomen): Inspection/Auscultation: + abdomen distended (less ) Percussion/Palpation: abdomen soft
[2018-06-16 08:35] LABS: Basophils # (auto) 0.02 K/uL (0-0.2); Basophils % (auto) 0.2 %; Eosinophils # (auto) 0.11 K/uL (0-0.5); Eosinophils % (auto) 1.1 %; Hematocrit (blood only) 38.2 % (42-52); Hemoglobin 12.8 g/dL (14.0-18.0); Immature Granulocytes # (auto) 0.04 K/uL (0.00-0.02); Immature Granulocytes % (auto) 0.4 %; Lymphocytes # (auto) 1.54 K/uL (1.2-3.4); Lymphocytes % (auto) 15.4 %; Mean Corpuscular Hgb Conc 33.5 g/dL (32-36); Mean Corpuscular Volume 91.8 fL (80-100); Mean Platelet Volume 10.3 fL (7.4-10.4); Neutrophils # (auto) 7.48 K/uL (1.4-6.5); Neutrophils % (auto) 74.9 %; Platelet Count 155 K/uL (130-400); RDW Coefficient of Variation 13.8 % (11.5-14.5); RDW Standard Deviation 46.6 fL (36.4-46.3); Red Blood Count 4.16 M/uL (4.7-6.1); White Blood Count 9.99 K/uL (4.8-10.8)
[2018-06-16 09:06] LABS: BUN Creatinine Ratio 10.3 (10-20); Calcium 8.4 mg/dl (8.5-10.1); Creatinine Clr Calc Pharmacy 73.4 ml/min; Est GFR (African American) 99.5; Est GFR (Non-African American) 85.8; Potassium 3.8 mmol/L (3.5-5.1)
--- NOTE | 2018-06-16 09:38 | Hospitalist Progress Note ---
Addendum entered and electronically signed by Swetha Silver PA-C 15:35: Addendum (Blank) Addendum June 16, 2018 15:33 Hx of renal Ca s/p R nephrectomy -now with 3.1 cm lesion on L kidney of unknown significance -will need close outpatient follow up with urology -check UA with cytology -discussed with Dr. Shirley who will order CT Renal for further evaluation and treatment Original Note: Date of Service June 16, 2018 Assessment & Plan (1) S/P exploratory laparotomy: POD #3 s/p exploratory lap, release SBO by Dr Alva -Doing well post-operatively -EBL#10ml. Hgb stable at 12.8. Continue monitoring H&H -Per general surgery for pain control, wound care, anticoagulation and activities -Advance diet as tolerated per surgery -Advance activity as tolerated (2) Incarcerated ventral hernia: -plan as above (3) History of nephrectomy, unilateral: Hx R renal cancer s/p R nephrectomy CT Abd/pelvis: There is a 3.1 cm lesion in the interpolar left kidney which does not meet CT criteria for simple cyst. Although this could represent a complex/hemorrhagic cyst, a renal neoplasm could appear similar. Correlation with any prior outside imaging studies is recommended. If no prior studies can be obtained, a follow- up renal protocol CT or MRI is recommended as neoplasm cannot be excluded. -Last abdominal CT scan found from 1997 did not mention L renal lesion - He had rt kidney resection approx 20 y ago for [facility] [place] [facility] Did not had any chemo afterwards No urinary symptom No hematuria ordered for CT with contrast Renal Protocol CT renal shows : The 3.1 cm lesion of concern in the left kidney represents a complex/ hemorrhagic cyst. No enhancing renal cortical mass is identified. benign funding , no other Urology work up or imaging needed pt updated of the finding (4) Tobacco use: -Recommend smoking cessation -Denies nictotine patch DVT Prophylaxis -Lovenox SQ per surgery Disposition: To be determined by surgery Follow up: Dr Beebe for routine care - has not seen for years Pt seen in collaboration with Dr. Shirley, please see addendum Supervising Physician Co-Signing Physician Notes ATTENDING ADDENDUM : pt seen and examined, care co ordinated with Physician assistance Doing well post op has minimum pain at abdomen surgical site surgery following pt is updated that his initial CT abdomen pelvis shows non determinate nodule on left kidney Pt is s/p rt nephrectomy for renal cell Ca renal function stable no report of hematuria no flank pain pt is agreeable to proceed for CT of kidney to assess tumor CT renal shows : The 3.1 cm lesion of concern in the left kidney represents a complex/ hemorrhagic cyst. No enhancing renal cortical mass is identified. benign funding , no other Urology work up or imaging needed pt updated of the finding pt can be discharged home tomorrow by Surgery team pt is stable medically no further work up indicated Evelin Shirley MD Subjective Seen and examined in room 385-2. S/P Exp lap with SBO release POD #3. Patient sitting up at bedside. Tolerating advanced diet. Had BM last evening. Still with mild abdominal discomfort. Denies f/c/s, chest pain, sob, n/v/d. Is passing flatus. Has been up ambulating to bathroom and to ambulate hallway today. Voiding with out difficulty. Physical Exam 2 Vital Signs (Past 24 Hours): Last Vital Signs Temp 36.4 C L 06/16/18 07:50 Pulse 74 06/16/18 07:50 Resp 20 06/16/18 07:50 BP 124/68 06/16/18 07:50 Pulse Ox 94 06/16/18 07:50 Physical Exam: Gen: Tall, thin male, sittng up in bedside chair, pleasent, NAD , A&O x3 HEENT: Normocephalic, atraumatic, conjunctivae moist, sclerae anicteric, mucous membranes moist. Lung: Clear to Auscultation bilaterally, no wheezes/rales/rhonchi Heart: Regular rate, regular rhythm, no murmurs, rubs, or gallops Abdomen: Mildly distended, Soft, mild tenderness to palpation, binder in place, +incision, +BS improving x 4 Extremities: No edema Skin: Warm, no rash, negative turgor. Results & Data Laboratory Results Short CBC 06/16/18 Range/Units 08:14 WBC 9.99 (4.8-10.8) K/uL Hgb 12.8 L (14.0-18.0) g/dL Hct 38.2 L (42-52) % Plt Count 155 (130-400) K/uL BMP 06/16/18 08:14 Sodium 138 Potassium 3.8 Chloride 107 Carbon Dioxide 23 BUN 9 Creatinine 0.88 Glucose 110 H Calcium 8.4 L
[2018-06-16] MEDS: ENOXAPARIN INJ 40 MG/0.4 ML SYR SQ SCH (12:29)
[2018-06-16] MEDS ORDERED: OPTIRAY 320 125ml IV PRN (15:59)
[2018-06-16 16:38] LABS: Appearance Urine Clear (Clear); Bilirubin Urine Negative (Negative); Color Urine Yellow; Glucose Urine UA Negative (Negative); Ketones Urine Negative (Negative); Leukocyte Esterase Urine Negative (Negative); Nitrite Urine Negative (Negative); Protein Urine Negative (Negative); Specific Gravity Urine 1.025 (1.000-1.030); Urobilinogen Urine Positive (Negative); pH Urine 7.5 (4.5-7.5)
--- NOTE | 2018-06-16 16:55 | CT Scan Report ---
CT SCAN OF THE ABDOMEN COMBO RENAL MASS PROTOCOL CLINICAL HISTORY: Left renal mass. COMPARISON STUDY: Abdominal CT dated 06/13/2018. TECHNIQUE: Before and following the IV administration of 90 cc of Optiray 320, CT scan of the abdome n is performed from the lung bases to the pelvic inlet utilizing the renal mass protocol. Images are reviewed in the axial, sagittal, and coronal planes. IV contrast was administered without complicatio n. A dose lowering technique was utilized adhering to the principles of ALARA. CT DOSE: 2356.04 mGycm FINDINGS: Lung bases: The heart is normal in size and there is trace pericardial fluid. There is a 1.7 cm dense ly calcified nodule the right lung base. There are small pleural effusions with bibasilar atelectasis , new from previous. Liver: The contrast-enhanced liver is normal in size, contour, and attenuation. There is mild central intrahepatic biliary ductal dilatation. The hepatic veins and portal veins are patent. Gallbladder: Surgically absent noting clips in the gallbladder fossa. Spleen: Normal in size and attenuation. Pancreas: Atrophic and grossly unremarkable. Adrenal glands: Unremarkable. Kidneys: The right kidney is not identified and presumed surgically absent. There is inferior locatio n of the left kidney which demonstrates cortical atrophy and is without hydronephrosis. No renal calc popeye are identified on the unenhanced series. The left kidney enhances homogeneously and shows normal excretion. Cortical and parapelvic cysts of left kidney measure up to 5.3 cm. The 3.1 cm lesion of co ncern seen on the 06/13/2018 examination shows no enhancement and represents a complex/hemorrhagic cyst . An additional 1.1 cm complex cyst is noted in the left kidney. No enhancing cortical mass is identi fied, and there is no evidence of urothelial lesion within the left renal pelvis or along the course of the left ureter. Abdominal vasculature: There is moderate to advanced atherosclerotic calcification of the abdominal a hasmukh. 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 Bowel: Bowel obstruction seen on 06/13/2018 has resolved there is evidence of interval surgical repair of the lower ventral hernia. A large hernia in the right lateral abdominal wall containing loops of s mall bowel and the cecum is unchanged. The appendix is well-visualized and normal. Peritoneum: There is no intraperitoneal free air. Trace free fluid is seen in the left lower quadrant . There are at least 3 large supraumbilical hernias which do not contain bowel loops. There is eviden ce of ventral hernia repair with skin clips in the midabdomen. There is simultaneous fluid and gas at the operative site seen on image #260, with a pocket of subcutaneous fluid measuring approximately 4 x 8 cm. Lymphadenopathy: None. Pelvic viscera: Excreted IV contrast and intraluminal gas are noted within the partially imaged bladd er. The gas is likely related to recent instrumentation. Skeletal structures: The skeletal structures are osteopenic. Moderate lumbosacral spondylosis is obse rved. No lytic or blastic lesions are seen. IMPRESSION: 1. The 3.1 cm lesion of concern in the left kidney represents a complex/hemorrhagic cyst. No enhancin g renal cortical mass is identified. 2. Bowel obstruction seen on 06/13/2018 has resolved and there has been interval ventral hernia repair. 3. There is subcutaneous gas and fluid identified within the ventral abdominal wall at the operative site. This likely represents postoperative change/seroma, and the largest pocket of fluid measures 4 x 8 cm. Clinical correlation will be required. 4. There is unchanged appearance of a large right lateral abdominal wall hernia which contains loops of small bowel and the cecum. 5. The right kidney is surgically absent. 6. Trace pleural effusions are new from previous. 7. Additional findings as above. Electronically signed by: Benjy Hernandez M.D. 06/16/2018 4:53 PM
[2018-06-17] MEDS: ACETAMINOPHEN 1,000 MG/100 ML VIAL IV SCH (06:39)
--- NOTE | 2018-06-17 08:02 | Surgery Progress Note ---
Date of Service June 17, 2018 Assessment & Plan (1) Incarcerated ventral hernia: pod 4 repair of incarcerated hernia/s doing well ok for d/c Subjective tolerating diet, bowels moving Physical Exam 2 Vital Signs (Past 24 Hours): Last Vital Signs Temp 36.6 C 06/17/18 07:18 Pulse 72 06/17/18 07:18 Resp 16 06/17/18 07:18 BP 115/74 06/17/18 07:18 Pulse Ox 93 06/17/18 07:18 Gastrointestinal (Abdomen): Inspection/Auscultation: + abdominal surgical incision (clean, dry); abdomen not distended Percussion/Palpation: abdomen soft
== END 2018-06-17 12:23 | disposition home health service (06) | DRG 354 ==
LOC: ED 02:55 → OR 05:46 → 3N 05:46
DX: Z88.0 Allergy status to penicillin; K56.609 Unspecified intestinal obstruction, unspecified as to partial versus complete obstruction; K43.6 Other and unspecified ventral hernia with obstruction, without gangrene; Z90.49 Acquired absence of other specified parts of digestive tract; Z85.528 Personal history of other malignant neoplasm of kidney; F17.210 Nicotine dependence, cigarettes, uncomplicated

== ENCOUNTER 2023-08-09 23:41 | Inpatient (IN) ==
--- OUTSIDE RECORDS SUMMARY | 2023-08-09 23:46 | External Medical Summary | Summary of Care ---
Author Name Unknown Organization [facility] Address [address] [address] Phone [phone] Care Team Providers Care [employer] Licensee Name Role Phone Serenity Beebe DO Primary Care Provider Reason for Visit * Reason Comments Re-Check Encounter Details Date Type Department Care Team (Late st Contact Info) Description 07/28/2023 3:00 PM EST Office Visit Family Practice [facility] [place] [address] [address] [place] [address] Serenity Beebe DO [address] [facility] [address] [place] [address] Closed fracture of second lumbar vertebra with routine healing, unspecified fracture morphology, subsequent encounter*; Infected sebaceous cyst of skin; Status post incision and drainage Allergies Active Allergy Reactions Criticality Noted Date Comments Penicillins High 12/11/1999 Sick and start swelling up Other reaction(s): Swelling of Lip/Tongue/Throat documented as of this encounter (statuses as of 08/07/2023) Medications Medication Sig Dispensed Refills Start Date End Date Status Atorvastatin Calcium 20 MG Oral Tablet (Lipitor)Indicati ons:Hyperlipidemi a with target LDL less than 130 Take 1 Tablet by mouth in the morning. 90 Tablet 1 05/28/2023 Active Lidocaine 4 % External Patch (Aspercreme) Place 1 Patch over 12 hours topically on the skin in the morning. 30 Patch 0 07/13/2023 Active Sennosides 8.6 MG Oral Tablet (Senokot) Take 1 Tablet by mouth daily. 0 07/24/2023 Active Docusate Sodium 100 MG Oral Capsule (Colace) Take 1 Capsule by mouth daily. 0 07/24/2023 Active Acetaminophen 325 MG Oral Tablet (Tylenol) Take 3 Tablets by mouth in the morning and 3 Tablets at noon and 3 Tablets before bedtime. Do all this for 7 days. 63 Tablet 0 07/13/2023 07/28/2023 Discontinued (Medication List Clean Up) Sulfamethoxazole- Trimethoprim 800-160 MG Oral Tablet (Bactrim DS) Take 1 Tablet by mouth in the morning and 1 Tablet before bedtime. Do all this for 3 days. 6 Tablet 0 07/13/2023 07/28/2023 Discontinued (Medication List Clean Up) documented as of this encounter (statuses as of 08/07/2023) Active Problems Problem Noted Date Diagnosed Date Epidermal cyst 07/13/2023 History of falling 07/13/2023 Infrarenal abdominal aortic aneurysm (AAA) witho ut rupture 07/10/2023 Fracture of lumbar vertebra with routine healing 07/09/2023 Closed fracture of second jodie mbar vertebra with routine healing 07/09/2023 Illiteracy and low-level literacy 07/05/2023 Other atherosclerosis of [place] arteries of extremities, bilateral legs 07/01/2022 Tobacco use disorder 11/11/2021 Hyperlipidemia with target LDL less than 130 11/2021 Numbness and tingling in right hand 11/11/2021 ADVANCE DIRECTIVE INFORMATION 08/18/2006 Overview: No, Advance Directive brochure offered , patient declined. documented as of this encounter (statuses as of 08/07/2023) Resolved Problems Problem Noted Date Diagnosed Date Resolved Date Epidermal inclusion cyst 07/10/202303/2024 Overview: Back Duplicated on pl Illiteracy 10/23/2020 07/18/2023 Overview: Duplicated on pl Intestinal obstruction 08/18/200607/01 documented as of this encounter (statuses as of 08/07/2023) Immunizations Name Administration Dates Next Due COVID-19 mRNA, LNP-s, No Pre serve, 2-Dose Series (Disruptor Beam) 01/28/2021,01/07/2021 Pneumococcal Conjugate Vacc, 13 Valent (Prevnar) 04/09/2020 Pneumococcal Polysaccharide PPV23 (Pneumovax) 04/12/2021 Rabies Vaccine (Rabavert) 03/02/2010,02/27/2010 Season Influenza, Quad, PF, Adjuvanted, 65+ Yrs, IM (FLUAD) 04/09/2020 Seasonal Influenza, Quadriva lent Hd (Fluzone Hd) 03/24/2023,03/21/2022,04/12/2021 Seasonal Influenza, Trivalen t, High Dose, No Preserve, IM 06/13/2018 documented as of this encounter Social History Tobacco Use Types Packs/Day Years Used Date Smoking Tobacco: Every Day Cigarettes 0.7 30 Smokeless Tobacco: Never Tobacco Cessation:Ready to Q uit: Not Asked; Counseling Given: Not Answered Alcohol Use Standard Drinks/Week Comments No 0 (1 standard drink = 0.6 oz pur e alcohol) PHQ-2 Answer Date Recorded PHQ Adult Total Score 0 05/12/2023 Hunger Vital Sign Answer Date Recorded Within the past 12 months, y ou worried that your food would run out before you got the money to buy more. Never true 05/12/20 23 Within the past 12 months, t he food you bought just didn't last and you didn't have money to get more. Never true 05/12/2023 Sex and Gender Information Value Date Recorded Sex Assigned at Male 03/21/2022 2:09 PM EDT Gender Identity Male 03/21/2022 2:09 PM EDT Sexual Orientation Straight 03/21/2022 2: 09 PM EDT Job Start Date Occupation Industry Not on file Not on file Not on file documented as of this encounter Last Filed Vital Signs Vital Sign Reading Time Taken Comments Blood Pressure 118/66 07/28/2023 2:50 PM EST Pulse 86 07/28/2023 2:50 PM EST Temperature 36.9 C (98.5 F) 07/28/2023 2:50 PM ES T Respiratory Rate 18 07/28/2023 2:50 PM EST Oxygen Saturation 99% 07/28/2023 2:50 PM EST Inhaled Oxygen Concentration - - Weight 68.9 kg (152 lb) 07/28/2023 2:50 PM EST Height - - Body Mass Index 24.53 07/09/2023 4:39 PM EST documented in this encounter Progress Notes * Serenity Beebe, DO - 07/28/2023 3:00 PM EST Subjective: Sonu Knox is a 77 year old male. Chief Complaint Patient presents with Re-Check HPI: Sonu Knox presents for 1 week recheck. Medications & HM reviewed. Hospital records, labs, studies, and discharge instructions reviewed with patient Lumbar fracture after fall when bending over, Ortho decided to manage non-surgically Walking with walker Cyst healing after I&D on back, getting home health PHM: Patient Active Problem List Diagnosis Code ADVANCE DIRECTIVE INFORMATION Tobacco use disorder F17.200 Hyperlipidemia with target LDL less than 130 E78.5 Numbness and tingling in right hand R20.0, R20.2 Other atherosclerosis of [place] arteries of extremities, bilateral legs (HCC) I70.293 Illiteracy and low-level literacy Z55.0 Fracture of lumbar vertebra with routine healing S32.009D Closed fracture of second lumbar vertebra with routine healing S32.029D Infrarenal abdominal aortic aneurysm (AAA) without rupture (HCC) I71.43 Epidermal cyst L72.0 History of falling Z91.81 Outpatient Medications Prior to Visit Medication Sig Dispense Refill Docusate Sodium 100 MG Oral Capsule (Colace) Take 1 Capsule by mouth daily. Sennosides 8.6 MG Oral Tablet (Senokot) Take 1 Tablet by mouth daily. [DISCONTINUED] Acetaminophen 325 MG Oral Tablet (Tylenol) Take 3 Tablets by mouth in the morning and 3 Tablets at noon and 3 Tablets before bedtime. Do all this for 7 days. 63 Tablet 0 Lidocaine 4 % External Patch (Aspercreme) Place 1 Patch over 12 hours topically on the skin in the morning. 30 Patch 0 [DISCONTINUED] Sulfamethoxazole-Trimethoprim 800-160 MG Oral Tablet (Bactrim DS) Take 1 Tablet by mouth in the morning and 1 Tablet before bedtime. Do all this for 3 days. 6 Tablet 0 Atorvastatin Calcium 20 MG Oral Tablet (Lipitor) Take 1 Tablet by mouth in the morning. 90 Tablet 1 No facility-administered medications prior to visit. Last reviewed on 07/28/2023 2:47 PM by Alyssa Harris LPN Review of patient's allergies indicates: Allergen Reactions Penicillins Sick and start swelling up Other reaction(s): Swelling of Lip/Tongue/Throat Objective: BP 118/66 | Pulse 86 | Temp 36.9 C (98.5 F) (Tympanic) | Resp 18 | Wt 68.9 kg (152 lb) | SpO2 99% | BMI 24.53 kg/m | BSA 1.79 m Physical Exam: Neck: supple, no adenopathy, no bruits, thyroid normal size, non-tender, without nodularity Heart: regular rate & rhythm, no murmur, and no gallops Lungs: chest symmetric with normal AP diameter, no chest deformities noted, no chest wall tenderness, lungs clear to auscultation Pulses: carotid=2/4 w/o bruits Abdomen: abdomen soft, non-tender, normal bowel sounds, and no masses or organomegaly Extremities: less than 2 second capillary refill, no joint deformities, effusion, or inflammation Skin: 5cm incision of back over cyst, draining minimal serous /purulent discharge, bandaged and packed. Otherwise skin color, texture, turgor are normal, no rashes or significant lesions ASSESSMENT/PLAN: Closed fracture of second lumbar vertebra with routine healing, unspecified fracture morphology, subsequent encounter (Primary) Continue walker as tolerated, non-surgical management, follow up ortho, check DEXA, consider osteoporosis treatment Infected sebaceous cyst of skin Status post incision and drainage Continue home health wound care RTC 1 month 30 min spent with patient, reviewing history, performing physical exam, reviewing labs, studies, specialist OVNs, and reports, educating and coordinating care, discussing treatment Serenity Beebe DO documented in this encounter Nursing Notes * Alyssa Harris LPN - 07/28/2023 2:50 PM EST Sonu Knox presents for 1 week recheck. Medications & HM reviewed. documented in this encounter Plan of Treatment Upcoming Encounters Date Type Department Care Team (Late st Contact Info) Description 10/26/2023 3:00 PM EDT Imaging Radiology, [address] [place] [address] Health Maintenance Due Date Last Done Comments AAA Monitoring 09/05/1963 Hepatitis C Screening 09/05/1963 DTaP,Tdap,and Td Vaccines (1 - Tdap) 1964 Zoster Vaccines (1 of 2) 09/05/1995 COVID-19 Vaccine (3 - season) 2023 01/28/2021, 01/07/2021 Depression Screening 05/12/2024 05/12/2023 Pneumococcal Vaccine: 65+ Years Completed 04/12/2021, 04/09/2020 LUNG CANCER SCREENING - USE SMARTSET 20835 Completed 12/11/2022, 11/25/2021 Influenza Vaccine (FLU shot) Completed , 03/21/2022, 04/12/2021, Additional history exists GARDASIL-HPV IMMUNIZATION SERIES Aged Out No longer eligible based on patient's age to complete this topic Hepatitis B Aged Out No longer eligi ble based on patient's age to complete this topic MENINGOCOCCAL (MENACTRA/MENVEO) Aged Out No longer eligible based on patient's age to complete this topic documented as of this encounter Medical Devices Not on filedocumented as of this encounter Visit Diagnoses Diagnosis Closed fracture of second lumbar vertebra with routine healing, unspecified fracture morphology, subsequent encounter- Primary Infected sebaceous cyst of skin Sebaceous cyst Status post incision and drainage documented in this encounter Advance Directives Documents on File Type Date Recorded Patient Manager Corporate Strategy Expl anation Power of Ruby On Rails Web Developer 12/04/2020 3:11 PM power of staff attorney Latest Code Status on File Code Status Date Activated Date Inactivated Comments Full Code 07/09/2023 10:40 AM 07/13/2023 10:31 PM This order reflects the patients wishes and were consensually agreed upon. Question Answer Comments Discussion of Advance Directives occurred with: Patient Care Teams Funeral Service Licensee Relationship Specialty Start Date End Date Serenity Beebe DO [address] [place] [id number] PCP - General Family Medicine 06/26/20 documented as of this encounter"
--- OUTSIDE RECORDS SUMMARY | 2023-08-09 23:46 | External Medical Summary | Summary of Care ---
Author Name Unknown Organization [facility] Address [address] [place] [address] Phone [phone] Care Team Providers Care Intern Product Marketing Manager Name Role Phone Serenity Beebe DO Primary Care Provider Reason for Visit * Reason Comments Hospital Follow-Up Encounter Details Date Type Department Care Team (Late st Contact Info) Description 07/21/2023 3:00 PM EST Office Visit Family Practice [facility] [place] [address] [facility] [place] [address] Serenity Beebe DO [facility] [address] Compression fracture of L2 vertebra, initial encounter ([facility])* Allergies Active Allergy Reactions Criticality Noted Date Comments Penicillins High 12/11/1999 Sick and start swelling up Other reaction(s): Swelling of Lip/Tongue/Throat documented as of this encounter (statuses as of 08/05/2023) Medications Medication Sig Dispensed Refills Start Date End Date Status Atorvastatin Calcium 20 MG Oral Tablet (Lipitor)Indicati ons:Hyperlipidemi a with target LDL less than 130 Take 1 Tablet by mouth in the morning. 90 Tablet 1 05/28/2023 Active Lidocaine 4 % External Patch (Aspercreme) Place 1 Patch over 12 hours topically on the skin in the morning. 30 Patch 0 07/13/2023 Active Acetaminophen 325 MG Oral Tablet (Tylenol) [...] as of this encounter (statuses as of 08/05/2023) Active Problems Problem Noted Date Diagnosed Date [...] as of this encounter (statuses as of 08/05/2023) Resolved Problems Problem Noted Date Diagnosed Date Resolved Date Epidermal inclusion cyst 07/10/202303/2024 Overview: Back Duplicated on pl Illiteracy 10/23/2020 07/18/2023 Overview: Duplicated on pl Intestinal obstruction 08/18/200607/01 documented as of this encounter (statuses as of 08/05/2023) Immunizations Name Administration Dates Next Due COVID-19 mRNA, LNP-s, No Pre serve, 2-Dose Series ([place]) 01/28/2021,01/07/2021 Pneumococcal Conjugate Vacc, 13 Valent (Prevnar) [...] Sign Reading Time Taken Comments Blood Pressure 102/70 07/21/2023 3:06 PM EST Pulse 85 07/21/2023 3:06 PM EST Temperature 36.6 C (97.9 F) 07/21/2023 3:06 PM ES T Respiratory Rate 18 07/21/2023 3:06 PM EST Oxygen Saturation 97% 07/21/2023 3:06 PM EST Inhaled Oxygen Concentration - - Weight 68.1 kg (150 lb 1.9 oz) 07/21/2023 3:06 P M EST Height - - Body Mass Index 24.23 07/09/2023 4:39 PM EST documented in this encounter Progress Notes * Serenity Beebe, - 07/21/2023 3:16 PM EST Subjective: Sonu Knox is a 77 year old male. Chief Complaint Patient presents with Hospital Follow-Up HPI: Pt in today for a hospital follow up. States that his back has been hurting him Cyst hurts a little bit as well HISTORY OF PRESENT ILLNESS Sonu Knox is a 77 year old male who presents to the ED for evaluation of Fracture (Spine fx,sent by [facility]). The patient was seen at 07/09/23 0929. Patient presents from [facility] as transfer for evaluation by spine and Trauma Surgery for acute appearing L2 fracture found on CT scan and correlates with patient's pain location. Patient only apparently fell 5 days ago while emptying catlitter and struck his low back. Patient also has incidental finding of large cyst to the upper right back. Patient denies bladder or bowel incontinence, saddle paresthesias, abnormal sensation to perianal region. Patient denies recent fevers, chills, upper respiratory infection symptoms, abdominal pain, or new rashes/lesions. CT L-spine from [facility] reveals L2 anterior/inferior corner fracture with mild compression. Patient is neurovascularly intact to lower extremity without radiculopathy. Vitals reviewed upon arrival patient found to be afebrile, and hemodynamically stable. Trauma Surgery and and OrthopedicSurgery consulted. Pain currently controlled. Physical exam reveals BL lower extremity sensation intact without foot drop or quad weakness. Patient admitted to trauma service for ongoing care. HOSPITAL COURSE (focused): Brief summary of your inpatient care: You were admitted to the trauma surgery service for the following injuries Back Injury (L2 fracture) Follow-Up: Standard follow up will be roughly 2 weeks following your spine injury. At this encounter you will be evaluated in clinic to assess symptoms related to your spine injury, or new issues that have developed. Imaging will be reviewed, and education regarding your injury and any new changes that have developed discussed. The following is important for follow up within the Spine clinic. Youwill see an assigned surgeon, or advanced practitioner: There are many different types of spine fractures, some are unstable, some are stable, not all willrequire bracing. If you are issued a brace or collar it is for good reason, wear it as instructed. No brace needed All spine trauma except spinous or transverse process fractures require x-ray prior to coming to clinic for follow-up. Spinous process and transverse process fractures normally DO NOT REQUIRE FOLLOW-UP with a pcmh specialist. For continued pain you can contact you primary care provider or request information by contacting the Spine clinic at the number below. You may or may not be cleared from you collar or brace at the 6 week interval from your injury. There are several factors involved, one of which will be reviewing x-ray for progression of your injury(further collapse of compression fractures, or movement of more complex fracture types). A second appointment 2 weeks after the initial follow up is often required to clear from collar/brace and lift limitations/restrictions. Another set of x-rays or CT scan may be required in some cases, but not all. Activity: You may have pain and discomfort, part of recovery from a traumatic spine injury (given you do not have other injuries that limit you) is to remain active. It may not be activity that you were involved with prior to your injury, but some basic principles to follow are: Walking as much as tolerable, up to 1-2 miles a day if no discomfort. Focused body weight extremity exercises supervised or prescribed by physical therapy. Do not lift greater than a gallon of milk (roughly 5 pounds) for 2 weeks, then it is okay to lift items no greater than 25 pounds (this should not be sustained weight bearing, but lifting items up tothat weight level). If any of these cause discomfort, then you need to reduce the weight you lift. Do not participate in strenuous weight training activity Avoid running, biking, or other cardio equipment use until initial follow-up in the Spine clinic. Pain and Pain Management: After a traumatic spine injury, pain should be expected. Some type of pain discomfort may be present for extended periods of time and require follow up physical therapy, ongoing medication pain management (non-opioid), or other escalation in treatment options. The majority of traumatic spine pain will be central/midline over the spine. Associated muscular discomfort is common, and in very rare cases there is nerve pain that is directly related to the trauma. You may require narcotic pain medications in the initial recovery phase from your injury. These should be used sparingly for severe pain. While on these medications do not plan on driving, operating heavy machinery, and refrain from critical decision making tasks if the medications make you drowsy or have sluggish thoughts (not everyone will be drowsy or have sluggish thoughts and not be able to complete critical decision making tasks, but everyone should refrain form driving or operating heavymachinery while utilizing these medications). Prescription anti-spasmodics (or muscle relaxers) will have some benefit. Your doctors will decide if this is appropriate for you. There are several types, some are more sedating than others. You shouldn't operate heavy machinery, or drive while taking these until you understand the effect the medication will have on you (depending on the severity of your injury, and whether or not you are in a collar or brace, those activities may not pertain to you). Tylenol (acetaminophen regular strength 325 mg, or extra strength 500mg) may be part of you pain regimen. You cannot exceed 4000mg of this medication in a 24 hour period. Contact Information: Orthopedics Department: Thursday-Thursday from 8 am to 4 pm: [facility] [place] - [phone], For after-hours emergencies: Call [phone] and have the Orthopaedic Surgeon pharmaceutical salesperson paged. Back Cyst 5x5cm raised erythematous area mid back with purulent pustules along edge. You were started on Bactrim 07/09/23 until 07/14/23. You have 6 more doses to complete. You will need to follow up with PCP in 3-4 days. On 07/13/23 we did a bedside incision and drainage on the cyst and packing was placed. The packing needs to be changed daily. Pain Medications You are being discharged on Tylenol and lidocaine patches to control your pain. You should take 975mg of Tylenol every 8 hours for the next 7 days and then as needed. You may use a lidocaine patch daily (wear it for 12 hours and then remove it for 12 hours). 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 30 Patch 0 Atorvastatin Calcium 20 MG Oral Tablet (Lipitor) Take 1 Tablet by mouth in the morning. 90 Tablet 1 [DISCONTINUED] Acetaminophen 325 MG Oral Tablet (Tylenol) Take 3 Tablets by mouth in the morning and 3 Tablets at noon and 3 Tablets before bedtime. Do all this for 7 days. 63 Tablet 0 [DISCONTINUED] Sulfamethoxazole-Trimethoprim 800-160 MG Oral Tablet (Bactrim DS) Take 1 Tablet by mouth in the morning and 1 Tablet before bedtime. Do all this for 3 days. 6 Tablet 0 No facility-administered medications prior to visit. Last reviewed on 07/28/2023 2:47 PM by Alyssa Harris LPN Review of patient's allergies indicates: Allergen Reactions Penicillins Sick and start swelling up Other reaction(s): Swelling of Lip/Tongue/Throat Objective: BP 102/70 | Pulse 85 | Temp 36.6 C (97.9 F) (Tympanic) | Resp 18 | Wt 68.1 kg (150 lb 1.9 oz) |SpO2 97% | BMI 24.23 kg/m | BSA 1.78 m Physical Exam: General: alert, healthy, and no distress Head: Normocephalic, No masses, lesions, tenderness or abnormalities Neck: supple, no adenopathy, no bruits, thyroid normal size, non-tender, without nodularity Heart: regular rate & rhythm, no murmur, and no gallops Lungs: chest symmetric with normal AP diameter, no chest deformities noted, no chest wall tenderness, lungs clear to auscultation Pulses: carotid=2/4 w/o bruits Extremities: less than 2 second capillary refill, no joint deformities, effusion, or inflammation Skin: Back: I&D of infected sebaceous cyst improved, minimal drainage, skin color, texture, turgor are normal, no rashes or significant lesions ASSESSMENT/PLAN: Compression fracture of L2 vertebra, initial encounter ([facility]) (Primary) - DEXA SCAN/BONE MINERAL AXIAL No surgery, conservative management recommended Walking with walker, has friend at home helping to change dressing and care for pt. Follow-up: Return in about 4 weeks (around 08/18/2023). | Check-out note: Change appointment in [place] to telemedicine from our office. 30 min spent with patient, reviewing history, performing physical exam, reviewing labs, studies, specialist OVNs, and reports, educating and coordinating care, discussing treatment Serenity Beebe DO documented in this encounter Nursing Notes * Heidi Juarez LPN - 07/21/2023 3:05 PM EST Pt in today for a hospital follow up. States that his back has been hurting him Cyst hurts a little bit as well documented in this encounter Plan of Treatment Upcoming Encounters Date Type Department Care Team (Late st Contact Info) Description 10/26/2023 3:00 PM EDT Imaging Radiology, [address] [id number] Scheduled Orders Name Type Priority Associated Diagnoses Orde r Schedule DEXA SCAN/BONE MINERAL AXIAL Medical Imaging Routine Compression fracture of L2 vertebra, initial encounter (HCC) Ordered: 07/21/2023 Health Maintenance Due Date Last Done Comments AAA Monitoring 09/05/1963 Hepatitis C Screening 09[birth year]05/1963 DTaP,Tdap,and Td Vaccines (1 - Tdap) 1964 Zoster Vaccines (1 of 2) 09/05/1995 COVID-19 Vaccine (3 - season) 2023 01/28/2021, 01/07/2021 Depression Screening 05/12/2024 05/12/2023 Pneumococcal Vaccine: 65+ Years Completed 04/12/2021, 04/09/2020 LUNG CANCER SCREENING - USE SMARTSET [id number] Completed 12/11/2022, 11/25/2021 Influenza Vaccine (FLU shot) [...] as of this encounter Visit Diagnoses Diagnosis Compression fracture of L2 vertebra, initial encounter (HCC)- Primary documented in this encounter Advance Directives Documents on File Type Date Recorded Patient Immunopathologist Expl anation Power of Community Services Coordinator 12/04/2020 3:11 PM power of estate attorney Latest Code Status on File Code Status Date Activated Date Inactivated Comments Full Code 07/09/2023 10:40 AM 07/13/2023 10:31 PM This order reflects the patients wishes and were consensually agreed upon. Question Answer Comments Discussion of Advance Directives occurred with: Patient Care Teams Intern Product Marketing Manager Relationship Specialty Start Date End Date Serenity Beebe DO [address] [place] [address] PCP - General Family Medicine 06/26/20 documented as of this encounter"
--- NOTE | 2023-08-10 00:13 | Emergency Department Note ---
Impression & Plan Small bowel obstruction, Fall ED Provider Note Provider: Fredis Cortes MD DATE OF SERVICE: 08/10/2023 CHIEF COMPLAINT: Fall, felt weak & nauseous, left hip and knee pain HISTORY OF PRESENT ILLNESS: Patient is a 77-year-old gentleman past medical history including renal cancer status post right nephrectomy, bowel obstruction, ventral hernias, recent hospitalization for a lumbar fracture at [facility] presenting here via ambulance from his home. Patient states that this evening he stood and took a step backwards and lost balance and fell onto his buttocks. Reports some pain in his low back and left hip region. Was able to be assisted up by others and walk.. Then that he began to feel like he was going to . Denies striking his head. Denies headache. Brothers lightheaded. Denies chest pain or shortness of breath. Some nausea but now resolved. Occasionally little bit of abdominal discomfort at times around his hernias but no significant at this point. Reports some pain into his left knee. Denies significant injury to his arms or right leg. Given ongoing symptoms EMS activated and he walked out to the ambulance. No new numbness or tingling at this time reported. Has been having some home care including nursing attending to wound of his back. PAST MEDICAL HISTORY: As noted above MEDICATIONS: Reviewed home medications not on blood thinners SOCIAL HISTORY: Smoker PHYSICAL EXAM: GENERAL: alert and oriented in no acute distress on stretcher somewhat fatigued in appearance Head: normocephalic and atraumatic EYES: No injection, discharge or icterus. PERRL, EOMI. NECK: Trachea midline. Supple. ENT: Mucous membranes pink and moist. Pharynx without erythema or exudate. LUNGS: Airway patent. No retractions. Breath sounds clear with good air entry bilaterally. HEART: Regular rate and rhythm. No chest wall tenderness ABDOMEN: Soft and non-tender with at least 2 large ventral and right-sided hernias present not firm or peritoneal and he is without guarding. Mild tenderness just below the umbilicus region. No open wounds noted. Stable pelvis with some slight tenderness of the left greater trochanter on exam. SKIN: Acyanotic, warm, dry. There is a small wound knee mid upper thoracic midline region with packing in place without significant erythema surrounding or crepitus. EXTREMITIES: Without swelling, tenderness or deformity able to range extremities fairly well with some slight pain of the medial left knee as well as pain in the left greater trochanter nature of the hip. Lower extremities soft and nontender without open wounds noted. NEUROLOGICAL: No focal deficits. No aphasia. No facial droop or slurred speech. Normal strength and tone in the extremities. Sensation to gross touch normal. EK bpm sinus rhythm with PAC. No PVC. Left axis. No acute ST segment elevation or depression with a QTc of 464. CONTINUOUS CARDIAC MONITORING: was ordered and showed a heart rate of 80s-90s bpm in sinus rhythm rare PAC 1 view chest x-ray per interpretation: No evidence of pneumonia, pneumothorax, fluid overload, or cardiomegaly. 3 view left knee x-ray per my interpretation: No evidence of fracture or dislocation noted. Significant arthritic changes are noted however. Pelvis and 2 view left hip x-ray per my interpretation: No evidence of fracture or dislocation. Some arthritic changes noted. PDMP was checked without noted issue. Patient's laboratory studies and imaging reviewed. Differential includes Fracture, dislocation, contusion, intra-abdominal, pneumothorax, intrathoracic, intracranial, neurologic, compartment syndrome, infection, electrolyte abnormality, cardiac dysfunction/arrhythmia/injury, pulmonary pathology such as pneumonia, as well as other pathologies. IMPRESSION/MEDICAL DECISION MAKING: Patient with a fall and possible traumatic injuries as well as feeling unwell generally afterwards. EKG and troponin sent but seems less likely be cardiac. Chest x-ray obtained without significant abnormality on my review. Patient is a smoker but not hypoxic here. Given small mount of pain medicine for pain in his left hip and knee. Some ongoing back issues. Will obtain x-rays of the hip and knee as well as CT of the abdomen pelvis and lumbar spine given his history of injury there and that he fell on this area again. No new neurological deficits. Doubt acute CVA. Doubt head injury as he did not strike his head. Not on high risk anticoagulation. Blood work here without anemia. Leukocytosis of 16.5 is noted slightly more elevated than previous. Afebrile here however. Not hypotensive or hypoxic. X- rays of the hip and knee without obvious fracture or dislocation noted on my review. Chemistries with some slight hyponatremia but no significant potassium abnormality. Does have a mild ARLENE with creatinine of 1.4 today new from previous. No evidence of LFT abnormalities or elevated CK. I doubt compartment syndrome or rhabdomyolysis. Troponin normal. Given some slight cough and his weakness a respiratory viral panel was sent. Respiratory viral panel negative. CT abdomen pelvis with evidence concerning for small bowel obstruction. There are multiple abdominal wall hernias anterior and right lateral per radiology report with an SBO noted and some edema and stranding of the inferior ventral hernia questioning strangulation or ischemic component. Markedly distended stomach is also noted. NG tube will be placed. Patient does not appear peritoneal mild tenderness of the mid lower abdomen.. Lactate ordered. Did reach out and discussed with general surgery here. Did have prior small bowel obstruction with incarcerated hernia with ex lap in [address] Alva. Pain relays pain in his abdomen particular when he coughs but otherwise really not there. Not significantly tender on exam but does have distention particularly of the right abdominal hernia. Did reach out discussed with general surgery on-call given his complex hernia situation with concern for possible strangulation although the patient is not peritoneal does have some mid abdominal tenderness. Lactate is 2.2. X-ray confirms NG tube placement and green bilious output is obtained. Patient at the present oriented. Further deep review of medical records indicate the patient had a cholecystectomy, ex lap for SBO in 2006, right nephrectomy, and ex lap for SBO with incarcerated hernia in 2019. Given his reassuring exam with some improved with the NG tube surgery evaluated discussed monitoring the patient at this time here in the hospital. Hospitalist team was contacted. DIAGNOSIS: Fall, left hip and knee pain, small bowel obstruction, ventral hernia DISPOSITION: Patient agreeable with this plan hospitalist evaluating Past Med/Surg History Medical History Herniated disc Tobacco use History of nephrectomy, unilateral R kidney Renal cancer Arthritis knees Obesity enlarged abdomen Smoker Surgical History History of repair of rotator cuff History of cholecystectomy History of exploratory laparotomy 2006 - patient had SBO, lysis adhesions By Dr Orozco History of nephrectomy, unilateral R kidney due to cancer Family History Other Diabetes Social History Smoking Status: Current every day smoker Tobacco Type: Cigarettes Cigarettes Per Day: 0.5ppd x 10-20 years; Second Hand Exposure: No; Do You Dip or Chew Tobacco: No; Hx Alcohol Use: Yes Alcohol type: beer Alcohol Intake Frequency Comment: 5 beers once a week Hx Substance Use: Yes Preferred Language: [place] Communication Ability: Effective Associate Professor Physician Required: Yes Beliefs That Will Affect Care: None Current Living Situation: Other Current Living Situation Comment: LIVES WITH HIS EX- Feels Safe at Home: Yes Assistive Devices: None Allergies Allergies Allergy/AdvReac Type Severity Reaction Status Date / Time Penicillins Allergy Severe Swelling Verified 07/08/23 23:56 of Lip/Tongue/Throat Home Meds Home Medications Medication Instructions Recorded Confirmed atorvastatin 20 mg tablet 20 mg PO DAILY 11/11/20 08/10/23 Results & Data (ED) Vital Signs Vital Signs - 24 hr 08/09/23 23:45 08/10/23 00:21 08/10/23 00:24 Temperature 36.6 C Temperature Source Oral Pulse Rate 83 83 85 Pulse Rate from SpO2 Sensor 84 Pulse Rhythm Regular Regular Pulse Strength Normal Respiratory Rate 18 18 19 Respiratory Effort / Characteristics Non-Labored Spontaneous Respiratory Depth Normal Respiratory Pattern Regular Blood Pressure 103/80 Blood Pressure Mean 87 Blood Pressure Position Semi-fowlers Pulse Oximetry 98 96 96 Oxygen Delivery Method Room Air Room Air Room Air Sepsis Recent Fever Within 48 Hours No Sepsis New/Unexplained Change in Mental Status No Sepsis Action Taken by Nursing No Action Required 08/10/23 00:25 08/10/23 00:30 08/10/23 01:09 Temperature Temperature Source Pulse Rate 83 85 78 Pulse Rate from SpO2 Sensor 77 Pulse Rhythm Pulse Strength Respiratory Rate 16 18 Respiratory Effort / Characteristics Respiratory Depth Respiratory Pattern Blood Pressure Blood Pressure Mean Blood Pressure Position Pulse Oximetry 95 Oxygen Delivery Method Room Air Sepsis Recent Fever Within 48 Hours Sepsis New/Unexplained Change in Mental Status Sepsis Action Taken by Nursing 08/10/23 01:30 08/10/23 01:30 08/10/23 02:00 Temperature Temperature Source Pulse Rate 74 83 Pulse Rate from SpO2 Sensor 75 84 Pulse Rhythm Pulse Strength Respiratory Rate 19 23 Respiratory Effort / Characteristics Respiratory Depth Respiratory Pattern Blood Pressure 101/63 Blood Pressure Mean 67 Blood Pressure Position Pulse Oximetry 95 97 Oxygen Delivery Method Room Air Sepsis Recent Fever Within 48 Hours Sepsis New/Unexplained Change in Mental Status Sepsis Action Taken by Nursing Laboratory Data 08/10/23 00:25 08/10/23 00:25 Lab Results 08/10/23 08/10/23 08/10/23 Range/Units 00:25 00:26 02:12 WBC 16.51 H (4.8-10.8) K/ul RBC 5.08 (4.70-6.10) M/uL Hgb 15.3 (14.0-18.0) g/dl Hct 44.9 (42.0-52.0) % MCV 88.4 (80.0-100.0) fL MCH 30.1 (25.0-34.0) pg MCHC 34.1 (32.0-36.0) g/dL RDW Std Deviation 46.7 H (36.4-46.3) fL RDW Coeff of Gabriela 14.5 (11.5-14.5) % Plt Count 201 (130-400) K/uL MPV 10.2 (9.4-12.4) fL Immature Gran % (Auto) 0.5 % Neut % (Auto) 83.6 % Lymph % (Auto) 10.4 % [place] % (Auto) 5.1 % Eos % (Auto) 0.1 % Baso % (Auto) 0.3 % Neut # (Auto) 13.82 H (1.40-6.50) K/uL Lymph # (Auto) 1.71 (1.20-3.40) K/uL [place] # (Auto) 0.84 H (0.11-0.59) K/uL Eos # (Auto) 0.01 (0.00-0.50) K/uL Baso # (Auto) 0.05 (0.00-0.20) K/uL Immature Gran # (Auto) 0.08 (0.01-0.20) K/uL PT 10.5 (9.0-12.0) Seconds INR 1.0 (0.9-1.1) Sodium 134 L (136-145) mmol/L Potassium 4.8 (3.5-5.1) mmol/L Chloride 102 (98-107) mmol/L Carbon Dioxide 25 (21-32) mmol/L Anion Gap 7 (3-11) BUN 19 (6-23) mg/dl Creatinine 1.43 H (0.6-1.4) mg/dl Est Cr Clr Drug Dosing 39.0 ml/min Est GFR ( Amer) 54.4 ml/min Est GFR (Non-Af Amer) 46.9 ml/min BUN/Creatinine Ratio 13.3 (10-20) Glucose 172 H (70-99(Fasting)) mg/dl Lactate 2.2 H* (0.4-2.0) mmol/L Calcium 9.6 (8.6-10.3) mg/dl Magnesium 2.1 (1.7-2.4) mg/dl Total Bilirubin 0.6 (0.2-1.0) mg/dl AST 15 (13-39) U/L ALT 19 (7-52) U/L Alkaline Phosphatase 84 (34-104) U/L Total Creatine Kinase 40 (30-223) U/L Troponin I High Sens 4.1 (0-20) pg/ml Total Protein 6.8 (6.0-8.3) gm/dl Albumin 4.1 (3.4-5.0) gm/dl Globulin 2.7 (2.5-4.0) gm/dl Albumin/Globulin Ratio 1.5 (0.9-2) TSH 3.465 (0.300-4.500) uIu/ml Adenovirus (PCR) Not Detected (NotDetected) B. pertussis DNA (PCR) Not Detected (NotDetected) B.parapertussis DNA PCR Not Detected (NotDetected) C. pneumoniae DNA (PCR) Not Detected (NotDetected) Coronavirus OC43 (PCR) Not Detected (NotDetected) Coronavirus HKU1 (PCR) Not Detected (NotDetected) Coronavirus 229E (PCR) Not Detected (NotDetected) SARS-CoV-2 (PCR) Not Detected (NotDetected) Coronavirus NL63 (PCR) Not Detected (NotDetected) Human Metapneumovir PCR Not Detected (NotDetected) Influenza Type A (PCR) Not Detected (NotDetected) Influenza Type B (PCR) Not Detected (NotDetected) M. pneumoniae (PCR) Not Detected (NotDetected) Parainfluenza 1 (PCR) Not Detected (NotDetected) Parainfluenza 2 (PCR) Not Detected (NotDetected) Parainfluenza 3 (PCR) Not Detected (NotDetected) Parainfluenza 4 (PCR) Not Detected (NotDetected) RSV (PCR) Not Detected (NotDetected) Entero/Rhino (PCR) Not Detected (NotDetected) Administered Medications Discontinued Medications Fentanyl Citrate (Fentanyl Citrate Pf 100 Mcg/2 Ml Vial) 50 mcg IV NOW STA Stop: 08/10/23 00:13 Last Admin: 08/10/23 00:37 Dose: 50 mcg Documented By: RACHEL Sodium Chloride (Nss) 500 mls @ 999 mls/hr IV .Q31M BRANDIE Stop: 08/10/23 00:45 Last Infusion: 08/10/23 01:34 Dose: Infused Documented By: Admin: 08/10/23 00:35 Dose: 999 mls/hr Documented By: RACHEL Lactated Ringer's (Lr) 500 mls @ 999 mls/hr IV .Q31M ONE Stop: 08/10/23 01:38 Last Infusion: 08/10/23 02:00 Dose: Infused Documented By: Admin: 08/10/23 01:27 Dose: 999 mls/hr Documented By: LAURITA Imaging Data Radiologist's Impression: Lumbar Spine CT 08/10/23 00:10 Exam(s): CT L SPINE EXAM: CT Lumbar Spine Without Intravenous Contrast CLINICAL HISTORY: Reason for exam: fall. TECHNIQUE: Axial computed tomography images of the lumbar spine without intravenous contrast. CTDI is 20.86 mGy and DLP is 983.57 mGy-cm. Automated exposure control was utilized for the study. A dose lowering technique was utilized adhering to the principles of ALARA. COMPARISON: Prior CT abdomen pelvis 07/24/2023 and today 08/10/2023. Prior CT L spine 07/08/2023 FINDINGS: Vertebrae: Similar L2 inferior endplate compression fracture deformity with mild interval increased sclerosis. Discs/spinal canal/neural foramina: Multilevel degenerative changes similar to the prior. Varying degrees of moderate to severe central canal stenosis from L2-L5. Most severe at L3-4. Varying degrees of mild to moderate bilateral foraminal stenoses at multiple levels. Soft tissues: Unremarkable. Other findings: Please see CT abdomen pelvis also today regarding abdominal findings. IMPRESSION: Similar L2 inferior endplate compression fracture deformity with mild interval increased sclerosis. No new fracture or malalignment. Electronically signed by: Ari Fallon M.D. 08/10/23 01:45 AM Abdomen/Pelvis CT 08/10/23 00:12 CR Exam(s): CT ABDOMEN + PELVIS Without Contrast EXAM: CT Abdomen and Pelvis Without Intravenous Contrast CLINICAL HISTORY: Reason for exam: fall, low back pain. TECHNIQUE: Axial computed tomography images of the abdomen and pelvis without intravenous contrast. CTDI is 20.86 mGy and DLP is 983.57 mGy-cm. Automated exposure control was utilized for the study. A dose lowering technique was utilized adhering to the principles of ALARA. COMPARISON: CT Abdomen Pelvis dated 07/24/2023 FINDINGS: Lung bases: Right lower lobe calcified granuloma. No consolidation. ABDOMEN: Liver: Unremarkable. Gallbladder and bile ducts: Cholecystectomy. No ductal dilation. Pancreas: Unremarkable. No ductal dilation. Spleen: Unremarkable. No splenomegaly. Adrenals: Unremarkable. No mass. Kidneys and ureters: Right nephrectomy. Stomach and bowel: Multiple abdominal wall hernias of the anterior and right lateral abdominal wall containing multiple bowel loops. Multiple dilated small bowel loops with air-fluid levels and collapsed distal loops. Transition point is at the inferior ventral hernia near the midline series 3 image 189. Some of the loops in the inferior ventral hernia appears thickened and there is mild mesenteric edema and fat stranding. Markedly distended stomach with fluid and heterogeneous contents. PELVIS: Appendix: Normal appendix within the right lateral abdominal wall hernia. Bladder: Bladder wall thickening versus partial distention. No stones. Reproductive: Unremarkable as visualized. ABDOMEN and PELVIS: Intraperitoneal space: Unremarkable. No free air. No significant fluid collection. Bones/joints: Degenerative changes of the spine and hips. L2 inferior endplate compression fracture deformity similar to the prior. No dislocation. Soft tissues: Left inguinal hernia containing fat. Vasculature: Stable 3.2 cm infrarenal abdominal aortic aneurysm. Lymph nodes: Unremarkable. No enlarged lymph nodes. IMPRESSION: 1. Multiple abdominal wall hernias of the anterior and right lateral abdominal wall containing multiple bowel loops. New finding of small bowel obstruction with transition point at the inferior ventral hernia near the midline. Some of the loops in the inferior ventral hernia appears thickened and there is mild mesenteric edema and fat stranding. May represent strangulation/ischemic component. 2. Markedly distended stomach with fluid and heterogeneous contents. 3. L2 inferior endplate compression fracture deformity similar to the prior. Communications: Verify Receipt Electronically signed by: Ari Fallon M.D. 08/10/23 01:35 AM Discharge Plan Visit Data Chief Complaint: Fall Stated Complaint: FALL W/ HIP PAIN ED Provider: Fredis Cortes Discharge Problem: Small bowel obstruction, Fall Patient Disposition: Being Evaluated by Hospitalist Condition: Fair Forms Stand Alone Forms: [facility] Prescriptions Prescriptions: No Action atorvastatin 20 mg tablet 20 mg PO DAILY Referrals Referrals: Serenity Beebe, [Primary Care Provider] -
[2023-08-10] MEDS: SODIUM CHLORIDE 0.9% 500 ML IV SCH ×2 (00:35→03:24)
[2023-08-10] MEDS: fentaNYL citrate PF 100 MCG/2 ML VIAL IV STA (00:37)
[2023-08-10 00:43] LABS: Basophils # (auto) 0.05 K/uL (0.00-0.20); Basophils % (auto) 0.3 %; Eosinophils # (auto) 0.01 K/uL (0.00-0.50); Eosinophils % (auto) 0.1 %; Hematocrit (blood only) 44.9 % (42.0-52.0); Hemoglobin 15.3 g/dl (14.0-18.0); Immature Granulocytes # (auto) 0.08 K/uL (0.01-0.20); Immature Granulocytes % (auto) 0.5 %; Lymphocytes # (auto) 1.71 K/uL (1.20-3.40); Lymphocytes % (auto) 10.4 %; Mean Corpuscular Hemoglobin 30.1 pg (25.0-34.0); Mean Corpuscular Hgb Conc 34.1 g/dL (32.0-36.0); Mean Corpuscular Volume 88.4 fL (80.0-100.0); Mean Platelet Volume 10.2 fL (9.4-12.4); Monocytes # (auto) 0.84 K/uL (0.11-0.59); Monocytes % (auto) 5.1 %; Neutrophils # (auto) 13.82 K/uL (1.40-6.50); Neutrophils % (auto) 83.6 %; Platelet Count 201 K/uL (130-400); RDW Coefficient of Variation 14.5 % (11.5-14.5); RDW Standard Deviation 46.7 fL (36.4-46.3); Red Blood Count 5.08 M/uL (4.70-6.10); White Blood Count 16.51 K/ul (4.8-10.8)
[2023-08-10 01:01] LABS: Albumin Globulin Ratio 1.5 (0.9-2); Albumin Level 4.1 gm/dl (3.4-5.0); BUN Creatinine Ratio 13.3 (10-20); Bilirubin,Total 0.6 mg/dl (0.2-1.0); Calcium 9.6 mg/dl (8.6-10.3); Est GFR (African American) 54.4 ml/min; Est GFR (Non-African American) 46.9 ml/min; Globulin 2.7 gm/dl (2.5-4.0); Magnesium 2.1 mg/dl (1.7-2.4); Potassium 4.8 mmol/L (3.5-5.1); Total Protein 6.8 gm/dl (6.0-8.3)
[2023-08-10 01:08] LABS: Troponin I High Sensitivity 4.1 pg/ml (0-20)
[2023-08-10 01:09] LABS: Prothrombin Time 10.5 Seconds (9.0-12.0)
[2023-08-10 01:17] LABS: Thyroid Stimulating Hormone 3.465 uIu/ml (0.300-4.500)
[2023-08-10] MEDS: LACTATED RINGER'S 500 ML IV ONE (01:27)
[2023-08-10 01:32] LABS: Adenovirus PCR Not Detected (NotDetected); Bordetella parapertussis PCR Not Detected (NotDetected); Bordetella pertussis PCR Not Detected (NotDetected); Chlamydia pneumoniae PCR Not Detected (NotDetected); Coronavirus 229E PCR Not Detected (NotDetected); Coronavirus CoV-2 (COVID19)PCR Not Detected (NotDetected); Coronavirus HKU1 PCR Not Detected (NotDetected); Coronavirus NL63 PCR Not Detected (NotDetected); Coronavirus OC43PCR Not Detected (NotDetected); Human Metapneumovirus PCR Not Detected (NotDetected); Influenza A PCR Not Detected (NotDetected); Influenza B PCR Not Detected (NotDetected); Mycoplasma pneumoniae PCR Not Detected (NotDetected); Parainfluenza Virus 1 PCR Not Detected (NotDetected); Parainfluenza Virus 2 PCR Not Detected (NotDetected); Parainfluenza Virus 3 PCR Not Detected (NotDetected); Parainfluenza Virus 4 PCR Not Detected (NotDetected); Respiratory Syncytial VirusPCR Not Detected (NotDetected); Rhinovirus/Enterovirus PCR Not Detected (NotDetected)
--- NOTE | 2023-08-10 01:35 | CT Scan Report ---
Exam(s): CT ABDOMEN + PELVIS Without Contrast EXAM: CT Abdomen and Pelvis Without Intravenous Contrast CLINICAL HISTORY: Reason for exam: fall, low back pain. TECHNIQUE: Axial computed tomography images of the abdomen and pelvis without intravenous contrast. CTDI is 20.86 mGy and DLP is 983.57 mGy-cm. Automated exposure control was utilized for the study. A dose lowering technique was utilized adhering to the principles of ALARA. COMPARISON: CT Abdomen Pelvis dated 07/24/2023 FINDINGS: Lung bases: Right lower lobe calcified granuloma. No consolidation. ABDOMEN: Liver: Unremarkable. Gallbladder and bile ducts: Cholecystectomy. No ductal dilation. Pancreas: Unremarkable. No ductal dilation. Spleen: Unremarkable. No splenomegaly. Adrenals: Unremarkable. No mass. Kidneys and ureters: Right nephrectomy. Stomach and bowel: Multiple abdominal wall hernias of the anterior and right lateral abdominal wall containing multiple bowel loops. Multiple dilated small bowel loops with air-fluid levels and collapsed distal loops. Transition point is at the inferior ventral hernia near the midline series 3 image 189. Some of the loops in the inferior ventral hernia appears thickened and there is mild mesenteric edema and fat stranding. Markedly distended stomach with fluid and heterogeneous contents. PELVIS: Appendix: Normal appendix within the right lateral abdominal wall hernia. Bladder: Bladder wall thickening versus partial distention. No stones. Reproductive: Unremarkable as visualized. ABDOMEN and PELVIS: Intraperitoneal space: Unremarkable. No free air. No significant fluid collection. Bones/joints: Degenerative changes of the spine and hips. L2 inferior endplate compression fracture deformity similar to the prior. No dislocation. Soft tissues: Left inguinal hernia containing fat. Vasculature: Stable 3.2 cm infrarenal abdominal aortic aneurysm. Lymph nodes: Unremarkable. No enlarged lymph nodes. IMPRESSION: 1. Multiple abdominal wall hernias of the anterior and right lateral abdominal wall containing multiple bowel loops. New finding of small bowel obstruction with transition point at the inferior ventral hernia near the midline. Some of the loops in the inferior ventral hernia appears thickened and there is mild mesenteric edema and fat stranding. May represent strangulation/ischemic component. 2. Markedly distended stomach with fluid and heterogeneous contents. 3. L2 inferior endplate compression fracture deformity similar to the prior. Communications: Verify Receipt Electronically signed by: Ari Fallon M.D. 08/10/23 01:35 AM
--- NOTE | 2023-08-10 01:46 | CT Scan Report ---
Exam(s): CT L SPINE EXAM: CT Lumbar Spine Without Intravenous Contrast CLINICAL HISTORY: Reason for exam: fall. TECHNIQUE: Axial computed tomography images of the lumbar spine without intravenous contrast. CTDI is 20.86 mGy and DLP is 983.57 mGy-cm. Automated exposure control was utilized for the study. A dose lowering technique was utilized adhering to the principles of ALARA. COMPARISON: Prior CT abdomen pelvis 07/24/2023 and today 08/10/2023. Prior CT L spine 07/08/2023 FINDINGS: Vertebrae: Similar L2 inferior endplate compression fracture deformity with mild interval increased sclerosis. Discs/spinal canal/neural foramina: Multilevel degenerative changes similar to the prior. Varying degrees of moderate to severe central canal stenosis from L2-L5. Most severe at L3-4. Varying degrees of mild to moderate bilateral foraminal stenoses at multiple levels. Soft tissues: Unremarkable. Other findings: Please see CT abdomen pelvis also today regarding abdominal findings. IMPRESSION: Similar L2 inferior endplate compression fracture deformity with mild interval increased sclerosis. No new fracture or malalignment. Electronically signed by: Ari Fallon M.D. 08/10/23 01:45 AM
--- NOTE | 2023-08-10 03:13 | Surgery Consultation ---
Date of Consultation August 10, 2023 Assessment & Plan (1) Small bowel obstruction: (2) Incisional hernia: Plan 77-year-old gentleman with extensive history of abdominal surgery presents due to fall at home. He was noted on CT scan to have a small bowel obstruction with a transition point near his large incisional midline hernia. On exam, the midline hernia is completely reducible with minimal pain or tenderness. His vital signs are all stable. He has no fever. NG tube in place, and he is feeling better. He last passed gas this evening. He will be admitted to the hospital for observation. Continue NG tube, IV fluid hydration, n.p.o. status. As the hernia is completely reducible with minimal tenderness, he does not require an immediate operation. If his symptoms persist or worsen, we will take him to the operating room for reduction of the hernia and repair. We will continue to follow. History of Present Illness Reason for Consultation: SBO with hernia Requesting Physician: Fredis Cortes MD Attending Physician: Fredis Cortes MD History of Present Illness 77-year-old gentleman with extensive past medical history of hernias presents after a fall earlier this evening. He noted he went off balance on his right leg and fell. He has a history of falls. He does have a history of smoking and moderate alcohol usage. He recently sustained a spinal fracture due to a fall. In the emergency department he stated that he has been having abdominal pain for a long time. He has an extensive history of surgery. He had exploratory laparotomy with lysis of adhesions in 2006. He has had a prior nephrectomy. Recently in 2019 he developed an incarcerated incisional ventral hernia which was repaired primarily by Dr. Alva. He has 2 large hernias, one in his midline, and 1 on the right side near his kidney incision. CT scan demonstrated what appears to be a small bowel obstruction with a transition point just inside the abdomen and a loop of bowel entering the midline hernia. Patient looks disheveled, but in no distress. Allergies Allergy/AdvReac Type Severity Reaction Status Date / Time Penicillins Allergy Severe Swelling Verified 07/08/23 23:56 of Lip/Tongue/Throat Home Medications Medication Instructions Recorded Confirmed Type atorvastatin 20 mg tablet 20 mg PO DAILY 11/11/20 08/10/23 History Patient History Medical History Herniated disc Tobacco use History of nephrectomy, unilateral R kidney Renal cancer Arthritis knees Obesity enlarged abdomen Smoker Surgical History History of repair of rotator cuff History of cholecystectomy History of exploratory laparotomy 2006 - patient had SBO, lysis adhesions By Dr Orozco History of nephrectomy, unilateral R kidney due to cancer Family History Other Diabetes Social History Smoking Status: Current every day smoker Tobacco Type: Cigarettes Cigarettes Per Day: 0.5ppd x 10-20 years; Second Hand Exposure: No; Do You Dip or Chew Tobacco: No; Hx Alcohol Use: Yes Alcohol type: beer Alcohol Intake Frequency Comment: 5 beers once a week Hx Substance Use: Yes Preferred Language: Emir[place] Communication Ability: Effective Tobacco Sample Puller Required: Yes Beliefs That Will Affect Care: None Current Living Situation: Other Current Living Situation Comment: LIVES WITH HIS EX- Feels Safe at Home: Yes Assistive Devices: None Review of Systems Review of Systems: All systems reviewed & are unremarkable except as noted in HPI & below Physical Exam Constitutional: well developed, + disheveled and comfortable; no acute distress Eyes: PERRL, conjunctivae normal, anicteric sclerae Neck: trachea midline, no thyromegaly Respiratory: normal respiratory effort; no respiratory distress and no labored breathing Cardiovascular: Rate/Rhythm: regular rate and regular rhythm Gastrointestinal (Abdomen): Inspection/Auscultation: abdomen normal to inspection; abdomen not distended Percussion/Palpation: + abdomen tender (Mild tenderness to deep palpation over the midline hernia), abdomen soft and + hernia (Midline hernia is completely reducible; right lateral hernia, reducible); no guarding and abdomen not rigid Skin: no rashes, warm and dry Psychiatric: A+Ox3, euthymic affect Results & Data Vital Signs (Past 12 Hours) Vital Signs Temp Pulse Pulse Resp BP BP Pulse Ox 08/10/23 02:30 85 20 93/62 L 96 08/10/23 02:00 83 23 97 08/10/23 01:30 101/63 08/10/23 01:30 74 19 95 08/10/23 01:09 78 18 95 08/10/23 00:30 85 16 08/10/23 00:25 83 08/10/23 00:24 85 19 96 08/10/23 00:21 83 18 96 08/10/23 00:00 85 16 117/76 95 08/09/23 23:51 83 18 103/80 95 08/09/23 23:45 36.6 C 83 18 103/80 98 O2 Del Method 08/10/23 02:30 Room Air 08/10/23 02:00 08/10/23 01:30 08/10/23 01:30 Room Air 08/10/23 01:09 Room Air 08/10/23 00:30 08/10/23 00:25 08/10/23 00:24 Room Air 08/10/23 00:21 Room Air 08/10/23 00:00 Room Air 08/09/23 23:51 Room Air 08/09/23 23:45 Room Air Laboratory Results 08/10/23 08/10/23 08/10/23 Range/Units 02:12 00:26 00:25 WBC 16.51 H (4.8-10.8) K/ul RBC 5.08 (4.70-6.10) M/uL Hgb 15.3 (14.0-18.0) g/dl Hct 44.9 (42.0-52.0) % MCV 88.4 (80.0-100.0) fL MCH 30.1 (25.0-34.0) pg MCHC 34.1 (32.0-36.0) g/dL RDW Std Deviation 46.7 H (36.4-46.3) fL RDW Coeff of Gabriela 14.5 (11.5-14.5) % Plt Count 201 (130-400) K/uL MPV 10.2 (9.4-12.4) fL Immature Gran % (Auto) 0.5 % Neut % (Auto) 83.6 % Lymph % (Auto) 10.4 % Tillman % (Auto) 5.1 % Eos % (Auto) 0.1 % Baso % (Auto) 0.3 % Neut # (Auto) 13.82 H (1.40-6.50) K/uL Lymph # (Auto) 1.71 (1.20-3.40) K/uL Tillman # (Auto) 0.84 H (0.11-0.59) K/uL Eos # (Auto) 0.01 (0.00-0.50) K/uL Baso # (Auto) 0.05 (0.00-0.20) K/uL Immature Gran # (Auto) 0.08 (0.01-0.20) K/uL PT 10.5 (9.0-12.0) Seconds INR 1.0 (0.9-1.1) Sodium 134 L (136-145) mmol/L Potassium 4.8 (3.5-5.1) mmol/L Chloride 102 (98-107) mmol/L Carbon Dioxide 25 (21-32) mmol/L Anion Gap 7 (3-11) BUN 19 (6-23) mg/dl Creatinine 1.43 H (0.6-1.4) mg/dl Est Cr Clr Drug Dosing 39.0 ml/min Est GFR ( Amer) 54.4 ml/min Est GFR (Non-Af Amer) 46.9 ml/min BUN/Creatinine Ratio 13.3 (10-20) Glucose 172 H (70-99(Fasting)) mg/dl Lactate 2.2 H* (0.4-2.0) mmol/L Calcium 9.6 (8.6-10.3) mg/dl Magnesium 2.1 (1.7-2.4) mg/dl Total Bilirubin 0.6 (0.2-1.0) mg/dl AST 15 (13-39) U/L ALT 19 (7-52) U/L Alkaline Phosphatase 84 (34-104) U/L Total Creatine Kinase 40 (30-223) U/L Troponin I High Sens 4.1 (0-20) pg/ml Total Protein 6.8 (6.0-8.3) gm/dl Albumin 4.1 (3.4-5.0) gm/dl Globulin 2.7 (2.5-4.0) gm/dl Albumin/Globulin Ratio 1.5 (0.9-2) TSH 3.465 (0.300-4.500) uIu/ml Adenovirus (PCR) Not Detected (NotDetected) B. pertussis DNA (PCR) Not Detected (NotDetected) B.parapertussis DNA PCR Not Detected (NotDetected) C. pneumoniae DNA (PCR) Not Detected (NotDetected) Coronavirus OC43 (PCR) Not Detected (NotDetected) Coronavirus HKU1 (PCR) Not Detected (NotDetected) Coronavirus 229E (PCR) Not Detected (NotDetected) SARS-CoV-2 (PCR) Not Detected (NotDetected) Coronavirus NL63 (PCR) Not Detected (NotDetected) Human Metapneumovir PCR Not Detected (NotDetected) Influenza Type A (PCR) Not Detected (NotDetected) Influenza Type B (PCR) Not Detected (NotDetected) M. pneumoniae (PCR) Not Detected (NotDetected) Parainfluenza 1 (PCR) Not Detected (NotDetected) Parainfluenza 2 (PCR) Not Detected (NotDetected) Parainfluenza 3 (PCR) Not Detected (NotDetected) Parainfluenza 4 (PCR) Not Detected (NotDetected) RSV (PCR) Not Detected (NotDetected) Entero/Rhino (PCR) Not Detected (NotDetected) (2) Incisional hernia Obstruction and gangrene presence: with obstruction but without gangrene Qualified Code(s): K43.0 - Incisional hernia with obstruction, without gangrene
--- NOTE | 2023-08-10 05:04 | History & Physical Report ---
Date of Service August 10, 2023 Assessment & Plan (1) SBO (small bowel obstruction): Plan: 77-year-old male with past medical history significant for hyperlipidemia, infrarenal abdominal aortic aneurysm 3.[address] scan done on July 2023, ongoing tobacco abuse, illiteracy and low-level literacy, history of falling, peripheral vascular disease, history of right nephrectomy, and in first week of July 2023 he fell and had an L2 spine fracture and was transferred to [facility] seen by Ortho and decided for conservative management and during that hospitalization bedside I&D was done for infected cyst on the back and currently is ambulating with walker and also getting a home health to help with the dressing of his I&D site comes today because of fall and abdominal pain and found to have small bowel obstruction. Patient states when he is going to the bathroom he fell backwards did not hit his head no loss of consciousness. They were friends in the house who helped him to get up and after that he was able to ambulate. Last couple of days he was having abdominal pain. Eating makes his abdominal pain worse. Yesterday he had a bowel movement but was constipated. Currently not passing gas. Denies nausea. No fevers. No chest pain or sh ortness of breath. Has cough. No headache. No runny nose. Currently resting comfortably and hemodynamically stable. S/p NG tube in the ER. Patient is hard of hearing. Small bowel obstruction Abdominal pain On the CAT scan sbo and there was question of ischemic component Seen by surgery and appreciate input Currently s/p NG-tube N.p.o., IV fluids, IV Dilaudid., IV antiemetics as needed Monitor in the medical floor Falls Lumbar spine CT no new fractures Follow imaging studies PT OT when able to ARLENE Getting fluids Avoid nephrotoxic agents Follow repeat labs Leukocytosis Seems chronic Ongoing smoking Will follow repeat labs Hyperlipidemia Holding statin n.p.o. restart when able DVT prophylaxis Lovenox Disposition Medical floor Full code History of Present Illness Chief Complaint: Fall and small bowel obstruction Primary Care Provider: Serenity Beebe DO 77-year-old male with past medical history significant for hyperlipidemia, infrarenal abdominal aortic aneurysm 3.[address] scan done on July 2023, ongoing tobacco abuse, illiteracy and low-level literacy, history of falling, peripheral vascular disease, history of right nephrectomy, and in first week of July 2023 he fell and had an L2 spine fracture and was transferred to [facility] seen by Ortho and decided for conservative management and during that hospitalization bedside I&D was done for infected cyst on the back and currently is ambulating with walker and also getting a home health to help with the dressing of his I&D site comes today because of fall and abdominal pain and found to have small bowel obstruction. Patient states when he is going to the bathroom he fell backwards did not hit his head no loss of consciousness. They were friends in the house who helped him to get up and after that he was able to ambulate. Last couple of days he was having abdominal pain. Eating makes his abdominal pain worse. Yesterday he had a bowel movement but was constipated. Currently not passing gas. Denies nausea. No fevers. No chest pain or shortness of breath. Has cough. No headache. No runny nose. Currently resting comfortably and hemodynamically stable. S/p NG tube in the ER. Patient is hard of hearing Past medical history. As mentioned above Past surgical history. Exploration of abdomen laparoscopically and lysis of adhesions, left knee aspiration, right nephrectomy and cholecystectomy in 1978. Injection of sacroiliac joint. Social history. Currently smokes half pack a day for last 30 years. No alcohol use. No drug use. Family history. No family history on file Allergies Allergy/AdvReac Type Severity Reaction Status Date / Time Penicillins Allergy Severe Swelling Verified 07/08/23 23:56 of Lip/Tongue/Throat Home Medications Medication Instructions Recorded Confirmed Type atorvastatin 20 mg tablet 20 mg PO DAILY 11/11/20 08/10/23 History Past Med/Surg History Medical History Herniated disc Tobacco use History of nephrectomy, unilateral R kidney Renal cancer Arthritis knees Obesity enlarged abdomen Smoker Surgical History History of repair of rotator cuff History of cholecystectomy History of exploratory laparotomy 2006 - patient had SBO, lysis adhesions By Dr Orozco History of nephrectomy, unilateral R kidney due to cancer Family History Other Diabetes Social History Smoking Status: Current every day smoker Tobacco Type: Cigarettes Cigarettes Per Day: 0.5ppd x 10-20 years; Second Hand Exposure: No; Do You Dip or Chew Tobacco: No; Hx Alcohol Use: Yes Alcohol type: beer Alcohol Intake Frequency Comment: 5 beers once a week Hx Substance Use: Yes Preferred Language: Burundian Communication Ability: Effective Splicer Apprentice Required: Yes Beliefs That Will Affect Care: None Current Living Situation: Other Current Living Situation Comment: LIVES WITH HIS EX- Feels Safe at Home: Yes Assistive Devices: None Review of Systems Review of Systems: All systems reviewed & are unremarkable except as noted in HPI & below Physical Exam Physical Exam: General- Not in distress Head- atraumatic Eyes- PERRL. ENT- oropharynx clear Neck- supple, Lungs- clear to auscultation no wheezing or crackles. Heart- regular rhythm; no murmur, no gallop. Abdomen- l bowel sounds present , soft, nontender, mild distension Extremities- no pretibial edema, no erythema seen. Neuro- alert, oriented ; PERRL, hard of hearing, no facial palsy; no dysarthria; Skin- No obvious drainage or erythema seen at the back cyst I and D site. Results & Data Results & Data Vital Signs (Past 12 Hours) Vital Signs Temp Pulse Pulse Resp BP BP Pulse Ox 08/10/23 04:00 116/78 08/10/23 04:00 71 16 96 08/10/23 04:00 72 18 116/78 97 08/10/23 03:30 70 16 96 08/10/23 03:30 108/68 08/10/23 03:00 101/66 08/10/23 03:00 75 18 96 08/10/23 02:30 93/62 L 08/10/23 02:30 82 21 95 08/10/23 02:30 85 20 93/62 L 96 08/10/23 02:00 108/59 L 08/10/23 02:00 83 23 97 08/10/23 01:30 101/63 08/10/23 01:30 74 19 95 08/10/23 01:09 78 18 95 08/10/23 00:30 85 16 08/10/23 00:25 83 08/10/23 00:24 85 19 96 08/10/23 00:21 83 18 96 08/10/23 00:00 85 16 117/76 95 08/09/23 23:51 83 18 103/80 95 08/09/23 23:45 36.6 C 83 18 103/80 98 O2 Del Method 08/10/23 04:00 08/10/23 04:00 Room Air 08/10/23 04:00 Room Air 08/10/23 03:30 Room Air 08/10/23 03:30 08/10/23 03:00 08/10/23 03:00 Room Air 08/10/23 02:30 08/10/23 02:30 Room Air 08/10/23 02:30 Room Air 08/10/23 02:00 08/10/23 02:00 08/10/23 01:30 08/10/23 01:30 Room Air 08/10/23 01:09 Room Air 08/10/23 00:30 08/10/23 00:25 08/10/23 00:24 Room Air 08/10/23 00:21 Room Air 08/10/23 00:00 Room Air 08/09/23 23:51 Room Air 08/09/23 23:45 Room Air Diagnostic Findings Laboratory Results WBC 16.51 K/ul (4.8-10.8) H 08/10/23 00:25 RBC 5.08 M/uL (4.70-6.10) 08/10/23 00:25 Hgb 15.3 g/dl (14.0-18.0) 08/10/23 00:25 Hct 44.9 % (42.0-52.0) 08/10/23 00:25 MCV 88.4 fL (80.0-100.0) 08/10/23 00:25 MCH 30.1 pg (25.0-34.0) 08/10/23 00:25 MCHC 34.1 g/dL (32.0-36.0) 08/10/23 00:25 RDW Std Deviation 46.7 fL (36.4-46.3) H 08/10/23 00:25 RDW Coeff of Gabriela 14.5 % (11.5-14.5) 08/10/23 00:25 Plt Count 201 K/uL (130-400) 08/10/23 00:25 MPV 10.2 fL (9.4-12.4) 08/10/23 00:25 Immature Gran % (Auto) 0.5 % 08/10/23 00:25 Neut % (Auto) 83.6 % 08/10/23 00:25 Lymph % (Auto) 10.4 % 08/10/23 00:25 Harrison % (Auto) 5.1 % 08/10/23 00:25 Eos % (Auto) 0.1 % 08/10/23 00:25 Baso % (Auto) 0.3 % 08/10/23 00:25 Neut # (Auto) 13.82 K/uL (1.40-6.50) H 08/10/23 00:25 Lymph # (Auto) 1.71 K/uL (1.20-3.40) 08/10/23 00:25 Harrison # (Auto) 0.84 K/uL (0.11-0.59) H 08/10/23 00:25 Eos # (Auto) 0.01 K/uL (0.00-0.50) 08/10/23 00:25 Baso # (Auto) 0.05 K/uL (0.00-0.20) 08/10/23 00:25 Immature Gran # (Auto) 0.08 K/uL (0.01-0.20) 08/10/23 00:25 PT 10.5 Seconds (9.0-12.0) 08/10/23 00:25 INR 1.0 (0.9-1.1) 08/10/23 00:25 Sodium 134 mmol/L (136-145) L 08/10/23 00:25 Potassium 4.8 mmol/L (3.5-5.1) 08/10/23 00:25 Chloride 102 mmol/L (98-107) 08/10/23 00:25 Carbon Dioxide 25 mmol/L (21-32) 08/10/23 00:25 Anion Gap 7 (3-11) 08/10/23 00:25 BUN 19 mg/dl (6-23) 08/10/23 00:25 Creatinine 1.43 mg/dl (0.6-1.4) H 08/10/23 00:25 Est Cr Clr Drug Dosing 39.0 ml/min 08/10/23 00:25 Est GFR ( Amer) 54.4 ml/min 08/10/23 00:25 Est GFR (Non-Af Amer) 46.9 ml/min 08/10/23 00:25 BUN/Creatinine Ratio 13.3 (10-20) 08/10/23 00:25 Glucose 172 mg/dl (70-99(Fasting)) H 08/10/23 00:25 Lactate 1.0 mmol/L (0.4-2.0) 08/10/23 04:24 Calcium 9.6 mg/dl (8.6-10.3) 08/10/23 00:25 Magnesium 2.1 mg/dl (1.7-2.4) 08/10/23 00:25 Total Bilirubin 0.6 mg/dl (0.2-1.0) 08/10/23 00:25 AST 15 U/L (13-39) 08/10/23 00:25 ALT 19 U/L (7-52) 08/10/23 00:25 Alkaline Phosphatase 84 U/L (34-104) 08/10/23 00:25 Total Creatine Kinase 40 U/L (30-223) 08/10/23 00:25 Troponin I High Sens 4.1 pg/ml (0-20) 08/10/23 00:25 Total Protein 6.8 gm/dl (6.0-8.3) 08/10/23 00:25 Albumin 4.1 gm/dl (3.4-5.0) 08/10/23 00:25 Globulin 2.7 gm/dl (2.5-4.0) 08/10/23 00:25 Albumin/Globulin Ratio 1.5 (0.9-2) 08/10/23 00:25 TSH 3.465 uIu/ml (0.300-4.500) 08/10/23 00:25 Adenovirus (PCR) Not Detected (NotDetected) 08/10/23 00:26 B. pertussis DNA (PCR) Not Detected (NotDetected) 08/10/23 00:26 B.parapertussis DNA PCR Not Detected (NotDetected) 08/10/23 00:26 C. pneumoniae DNA (PCR) Not Detected (NotDetected) 08/10/23 00:26 Coronavirus OC43 (PCR) Not Detected (NotDetected) 08/10/23 00:26 Coronavirus HKU1 (PCR) Not Detected (NotDetected) 03/04/24 00:26 Coronavirus 229E (PCR) Not Detected (NotDetected) 08/10/23 00:26 SARS-CoV-2 (PCR) Not Detected (NotDetected) 08/10/23 00:26 Coronavirus NL63 (PCR) Not Detected (NotDetected) 08/10/23 00:26 Human Metapneumovir PCR Not Detected (NotDetected) 08/10/23 00:26 Influenza Type A (PCR) Not Detected (NotDetected) 08/10/23 00:26 Influenza Type B (PCR) Not Detected (NotDetected) 08/10/23 00:26 M. pneumoniae (PCR) Not Detected (NotDetected) 08/10/23 00:26 Parainfluenza 1 (PCR) Not Detected (NotDetected) 08/10/23 00:26 Parainfluenza 2 (PCR) Not Detected (NotDetected) 08/10/23 00:26 Parainfluenza 3 (PCR) Not Detected (NotDetected) 08/10/23 00:26 Parainfluenza 4 (PCR) Not Detected (NotDetected) 08/10/23 00:26 RSV (PCR) Not Detected (NotDetected) 08/10/23 00:26 Entero/Rhino (PCR) Not Detected (NotDetected) 08/10/23 00:[address] 08/10/23 00:10 Exam(s): CT L SPINE EXAM: CT Lumbar Spine Without Intravenous Contrast CLINICAL HISTORY: Reason for exam: fall. TECHNIQUE: Axial computed tomography images of the lumbar spine without intravenous contrast. CTDI is 20.86 mGy and DLP is 983.57 mGy-cm. Automated exposure control was utilized for the study. A dose lowering technique was utilized adhering to the principles of ALARA. COMPARISON: Prior CT abdomen pelvis 07/24/2023 and today 08/10/2023. Prior CT L spine 07/08/2023 FINDINGS: Vertebrae: Similar L2 inferior endplate compression fracture deformity with mild interval increased sclerosis. Discs/spinal canal/neural foramina: Multilevel degenerative changes similar to the prior. Varying degrees of moderate to severe central canal stenosis from L2-L5. Most severe at L3-4. Varying degrees of mild to moderate bilateral foraminal stenoses at multiple levels. Soft tissues: Unremarkable. Other findings: Please see CT abdomen pelvis also today regarding abdominal findings. IMPRESSION: Similar L2 inferior endplate compression fracture deformity with mild interval increased sclerosis. No new fracture or malalignment. Electronically signed by: Ari Fallon M.D. 08/10/23 01:45 AM Abdomen/Pelvis CT 08/10/23 00:12 CR Exam(s): CT ABDOMEN + PELVIS Without Contrast EXAM: CT Abdomen and Pelvis Without Intravenous Contrast CLINICAL HISTORY: Reason for exam: fall, low back pain. TECHNIQUE: Axial computed tomography images of the abdomen and pelvis without intravenous contrast. CTDI is 20.86 mGy and DLP is 983.57 mGy-cm. Automated exposure control was utilized for the study. A dose lowering technique was utilized adhering to the principles of ALARA. COMPARISON: CT Abdomen Pelvis dated 07/24/2023 FINDINGS: Lung bases: Right lower lobe calcified granuloma. No consolidation. ABDOMEN: Liver: Unremarkable. Gallbladder and bile ducts: Cholecystectomy. No ductal dilation. Pancreas: Unremarkable. No ductal dilation. Spleen: Unremarkable. No splenomegaly. Adrenals: Unremarkable. No mass. Kidneys and ureters: Right nephrectomy. Stomach and bowel: Multiple abdominal wall hernias of the anterior and right lateral abdominal wall containing multiple bowel loops. Multiple dilated small bowel loops with air-fluid levels and collapsed distal loops. Transition point is at the inferior ventral hernia near the midline series 3 image 189. Some of the loops in the inferior ventral hernia appears thickened and there is mild mesenteric edema and fat stranding. Markedly distended stomach with fluid and heterogeneous contents. PELVIS: Appendix: Normal appendix within the right lateral abdominal wall hernia. Bladder: Bladder wall thickening versus partial distention. No stones. Reproductive: Unremarkable as visualized. ABDOMEN and PELVIS: Intraperitoneal space: Unremarkable. No free air. No significant fluid collection. Bones/joints: Degenerative changes of the spine and hips. L2 inferior endplate compression fracture deformity similar to the prior. No dislocation. Soft tissues: Left inguinal hernia containing fat. Vasculature: Stable 3.2 cm infrarenal abdominal aortic aneurysm. Lymph nodes: Unremarkable. No enlarged lymph nodes. IMPRESSION: 1. Multiple abdominal wall hernias of the anterior and right lateral abdominal wall containing multiple bowel loops. New finding of small bowel obstruction with transition point at the inferior ventral hernia near the midline. Some of the loops in the inferior ventral hernia appears thickened and there is mild mesenteric edema and fat stranding. May represent strangulation/ischemic component. 2. Markedly distended stomach with fluid and heterogeneous contents. 3. L2 inferior endplate compression fracture deformity similar to the prior. Communications: Verify Receipt Electronically signed by: Ari Fallon M.D. 08/10/23 01:35 AM ECG Additional Comments: ECG. Sinus rhythm with frequent PACs at rate of 90. Left axis deviation. Code Status & VTE Plan VTE Prophylaxis Plan VTE Prophylaxis will be ordered: Yes
[2023-08-10] MEDS ORDERED: HYDROmorphone INJ 0.5 MG/0.5 ML SYR IV PRN (05:41)
[2023-08-10] MEDS: D5W AND 1/2NSS 1,000 ML IV SCH (06:18)
[2023-08-10] MEDS: ONDANSETRON INJ 2 MG/ML 2 ML VIAL IV PRN (06:38)
--- NOTE | 2023-08-10 07:10 | XRay Report ---
XR chest 1V portable CLINICAL HISTORY: weakness, fall TECHNIQUE: Single frontal radiograph of the chest was obtained. Comparison: Comparison is made to chest and abdomen radiographs 07/24/2023 FINDINGS: No lines and tubes are seen. Calcified aortic knob is seen. The lungs are clear. Calcified granuloma is again seen at the medial right lung base. No evidence of pleural effusion or pneumothorax. IMPRESSION: No acute chest disease. ACT 112: Negative or not required by law. Electronically signed by: Matthew Diaz M.D. 08/10/2023 7:08 AM
[2023-08-10 07:13] LABS: Basophils # (auto) 0.05 K/uL (0.00-0.20); Basophils % (auto) 0.3 %; Eosinophils # (auto) 0.03 K/uL (0.00-0.50); Eosinophils % (auto) 0.2 %; Hematocrit (blood only) 41.6 % (42.0-52.0); Hemoglobin 13.7 g/dl (14.0-18.0); Immature Granulocytes # (auto) 0.09 K/uL (0.01-0.20); Immature Granulocytes % (auto) 0.6 %; Lymphocytes # (auto) 2.18 K/uL (1.20-3.40); Lymphocytes % (auto) 13.8 %; Mean Corpuscular Hemoglobin 29.8 pg (25.0-34.0); Mean Corpuscular Hgb Conc 32.9 g/dL (32.0-36.0); Mean Corpuscular Volume 90.6 fL (80.0-100.0); Mean Platelet Volume 10.3 fL (9.4-12.4); Monocytes # (auto) 0.99 K/uL (0.11-0.59); Monocytes % (auto) 6.3 %; Neutrophils # (auto) 12.44 K/uL (1.40-6.50); Neutrophils % (auto) 78.8 %; Platelet Count 194 K/uL (130-400); RDW Coefficient of Variation 14.6 % (11.5-14.5); RDW Standard Deviation 48.2 fL (36.4-46.3); Red Blood Count 4.59 M/uL (4.70-6.10); White Blood Count 15.78 K/ul (4.8-10.8)
--- NOTE | 2023-08-10 07:15 | XRay Report ---
LEFT KNEE 3 VIEWS CLINICAL HISTORY: Fall. Left knee pain. FINDINGS: AP, crosstable lateral, and sunrise views of the left knee are obtained. No prior studies a re available for comparison at the time of dictation. The skeletal structures are osteopenic. There i s no radiographic evidence of acute fracture. Advanced degenerative narrowing is seen in the medial a nd patellofemoral compartments. There are marginal osteophytes, patellar enthesophytes, and degenerat chelsea beaking of the tibial spine. Chondrocalcinosis is seen in the medial and lateral compartments. A small joint effusion is noted. There is prepatellar soft tissue swelling. IMPRESSION: 1. Small joint effusion with no radiographic evidence of acute fracture. 2. Osteopenia with degenerative change and chondrocalcinosis as above. Electronically signed by: Benjy Hernandez M.D. 08/10/2023 7:13 AM
--- NOTE | 2023-08-10 07:24 | XRay Report ---
XR hip LT 2V w pelvis CLINICAL HISTORY: fall, pain TECHNIQUE: 2 views of the left hip and single frontal view of the pelvis were obtained. Comparison: Comparison is made to femur radiograph 08/10/2022 and left knee radiograph 08/10/2023 FINDINGS: There is no evidence of an acute fracture. Joint spaces are well-preserved. No soft tissue abnormalit y is seen. IMPRESSION: No evidence of acute osseous injury. ACT 112: Negative or not required by law. Electronically signed by: Matthew Diaz M.D. 08/10/2023 7:22 AM
--- NOTE | 2023-08-10 07:25 | XRay Report ---
XR KUB/Abdomen 1 view CLINICAL HISTORY: ng tube TECHNIQUE: 1 view of the abdomen was obtained. Comparison: Comparison is made to chest and abdomen radiographs 07/24/[address] abdomen pelvis 024 FINDINGS: Enteric tube tip and side-port lie below the diaphragm. The osseous structures are grossly unremarkab le. Partial visualization of prominent small bowel loops seen on prior CT. Small stool burden is seen . IMPRESSION: Satisfactory position of enteric tube. Partial visualization of small bowel obstruction better seen o n prior CT. ACT 112: Negative or not required by law. Electronically signed by: Matthew Diaz M.D. 08/10/2023 7:24 AM
[2023-08-10 07:31] LABS: BUN Creatinine Ratio 16.5 (10-20); Calcium 8.7 mg/dl (8.6-10.3); Est GFR (African American) 62.7 ml/min; Est GFR (Non-African American) 54.1 ml/min; Potassium 4.3 mmol/L (3.5-5.1)
--- NOTE | 2023-08-10 08:22 | Electrocardiogram Report ---
Test Reason : Blood Pressure : / mmHG Vent. 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
[2023-08-10 09:01] LABS: Phosphorus 3.7 mg/dl (2.5-4.9)
--- NOTE | 2023-08-10 09:07 | Surgery Progress Note ---
Date of Service August 10, 2023 Assessment & Plan (1) Small bowel obstruction: (2) Incisional hernia: Plan 77-year-old gentleman with extensive history of abdominal surgery presents due to fall at home. He was noted on CT scan to have a small bowel obstruction with a transition point near his large incisional midline hernia. On exam, the midline hernia is completely reducible with minimal pain or tenderness. His vital signs are all stable. He has no fever. NG tube in place, and he is feeling better. Lactic acid normalized. Plan: Continue NGT TO LIS Continue NPO pain management as needed IV fluids continue medical management if no real significant improvement in next 24-48 hours , may require surgical exploration Dr. arevalo has seen and examined patient, agrees with above. Admission and Anticipated Discharge Date Admission Date: August 10, 2023 Supervising Physician Co-Signing Physician Notes I have seen and examined the patient personally and agree with the above assessment and plan. His hernia is completely reducible, and he has minimal pain. We will continue the NG tube, IV fluids, n.p.o. status. If he does not improve by tomorrow he will most likely need surgical exploration. We will continue to follow. Subjective no nausea or vomiting since NGT placed no flatus no severe pain Physical Exam Constitutional: WD/WN, vitals as above no acute distress and not ill appearing Gastrointestinal (Abdomen): Inspection/Auscultation: + abdominal surgical scar (RUQ scar); abdomen not distended Percussion/Palpation: + abdomen tender (mid abdomen at site of ventral hernia on palpation), abdomen soft and + hernia (large right sided ventral hernia with loss of domain); no guarding and abdomen not rigid Skin: no rashes, warm and dry Psychiatric: Orientation: alert and oriented x 3 Results & Data Vital Signs (Past 12 Hours) Vital Signs Temp Pulse Pulse Resp BP BP Pulse Ox 08/10/23 07:35 88 08/10/23 06:21 74 14 125/68 96 08/10/23 05:30 114/68 08/10/23 05:30 73 15 95 08/10/23 05:00 69 18 96 08/10/23 05:00 122/70 08/10/23 04:30 119/78 08/10/23 04:30 18 97 08/10/23 04:25 76 08/10/23 04:00 116/78 08/10/23 04:00 116/78 08/10/23 04:00 71 16 96 08/10/23 04:00 72 18 116/78 97 08/10/23 03:30 70 16 96 08/10/23 03:30 108/68 08/10/23 03:00 101/66 08/10/23 03:00 75 18 96 08/10/23 02:30 93/62 L 08/10/23 02:30 82 21 95 08/10/23 02:30 85 20 93/62 L 96 08/10/23 02:00 108/59 L 08/10/23 02:00 83 23 97 08/10/23 01:30 101/63 08/10/23 01:30 74 19 95 08/10/23 01:09 78 18 95 08/10/23 00:30 85 16 08/10/23 00:25 83 08/10/23 00:24 85 19 96 08/10/23 00:21 83 18 96 08/10/23 00:00 85 16 117/76 95 08/09/23 23:51 83 18 103/80 95 08/09/23 23:45 36.6 C 83 18 103/80 98 O2 Del Method 08/10/23 07:35 08/10/23 06:21 Room Air 08/10/23 05:30 08/10/23 05:30 08/10/23 05:00 Room Air 08/10/23 05:00 08/10/23 04:30 08/10/23 04:30 Room Air 08/10/23 04:25 08/10/23 04:00 08/10/23 04:00 08/10/23 04:00 Room Air 08/10/23 04:00 Room Air 08/10/23 03:30 Room Air 08/10/23 03:30 08/10/23 03:00 08/10/23 03:00 Room Air 08/10/23 02:30 08/10/23 02:30 Room Air 08/10/23 02:30 Room Air 08/10/23 02:00 08/10/23 02:00 08/10/23 01:30 08/10/23 01:30 Room Air 08/10/23 01:09 Room Air 08/10/23 00:30 08/10/23 00:25 08/10/23 00:24 Room Air 08/10/23 00:21 Room Air 08/10/23 00:00 Room Air 08/09/23 23:51 Room Air 08/09/23 23:45 Room Air Laboratory Results 08/10/23 08/10/23 08/10/23 Range/Units 06:48 04:24 02:12 WBC 15.78 H (4.8-10.8) K/ul RBC 4.59 L (4.70-6.10) M/uL Hgb 13.7 L (14.0-18.0) g/dl Hct 41.6 L (42.0-52.0) % MCV 90.6 (80.0-100.0) fL MCH 29.8 (25.0-34.0) pg MCHC 32.9 (32.0-36.0) g/dL RDW Std Deviation 48.2 H (36.4-46.3) fL RDW Coeff of Gabriela 14.6 H (11.5-14.5) % Plt Count 194 (130-400) K/uL MPV 10.3 (9.4-12.4) fL Immature Gran % (Auto) 0.6 % Neut % (Auto) 78.8 % Lymph % (Auto) 13.8 % Cameron % (Auto) 6.3 % Eos % (Auto) 0.2 % Baso % (Auto) 0.3 % Neut # (Auto) 12.44 H (1.40-6.50) K/uL Lymph # (Auto) 2.18 (1.20-3.40) K/uL Cameron # (Auto) 0.99 H (0.11-0.59) K/uL Eos # (Auto) 0.03 (0.00-0.50) K/uL Baso # (Auto) 0.05 (0.00-0.20) K/uL Immature Gran # (Auto) 0.09 (0.01-0.20) K/uL PT (9.0-12.0) Seconds INR (0.9-1.1) Sodium 137 (136-145) mmol/L Potassium 4.3 (3.5-5.1) mmol/L Chloride 105 (98-107) mmol/L Carbon Dioxide 26 (21-32) mmol/L Anion Gap 6 (3-11) BUN 21 (6-23) mg/dl Creatinine 1.27 (0.6-1.4) mg/dl Est Cr Clr Drug Dosing 44.0 ml/min Est GFR ( Amer) 62.7 ml/min Est GFR (Non-Af Amer) 54.1 ml/min BUN/Creatinine Ratio 16.5 (10-20) Glucose 136 H (70-99(Fasting)) mg/dl Lactate 1.0 2.2 H* (0.4-2.0) mmol/L Calcium 8.7 (8.6-10.3) mg/dl Phosphorus 3.7 (2.5-4.9) mg/dl Magnesium 2.0 (1.7-2.4) mg/dl Total Bilirubin (0.2-1.0) mg/dl AST (13-39) U/L ALT (7-52) U/L Alkaline Phosphatase (34-104) U/L Total Creatine Kinase (30-223) U/L Troponin I High Sens (0-20) pg/ml Total Protein (6.0-8.3) gm/dl Albumin (3.4-5.0) gm/dl Globulin (2.5-4.0) gm/dl Albumin/Globulin Ratio (0.9-2) TSH (0.300-4.500) uIu/ml Adenovirus (PCR) (NotDetected) B. pertussis DNA (PCR) (NotDetected) B.parapertussis DNA PCR (NotDetected) C. pneumoniae DNA (PCR) (NotDetected) Coronavirus OC43 (PCR) (NotDetected) Coronavirus HKU1 (PCR) (NotDetected) Coronavirus 229E (PCR) (NotDetected) SARS-CoV-2 (PCR) (NotDetected) Coronavirus NL63 (PCR) (NotDetected) Human Metapneumovir PCR (NotDetected) Influenza Type A (PCR) (NotDetected) Influenza Type B (PCR) (NotDetected) M. pneumoniae (PCR) (NotDetected) Parainfluenza 1 (PCR) (NotDetected) Parainfluenza 2 (PCR) (NotDetected) Parainfluenza 3 (PCR) (NotDetected) Parainfluenza 4 (PCR) (NotDetected) RSV (PCR) (NotDetected) Entero/Rhino (PCR) (NotDetected) 08/10/23 08/10/23 Range/Units 00:26 00:25 WBC 16.51 H (4.8-10.8) K/ul RBC 5.08 (4.70-6.10) M/uL Hgb 15.3 (14.0-18.0) g/dl Hct 44.9 (42.0-52.0) % MCV 88.4 (80.0-100.0) fL MCH 30.1 (25.0-34.0) pg MCHC 34.1 (32.0-36.0) g/dL RDW Std Deviation 46.7 H (36.4-46.3) fL RDW Coeff of Gabriela 14.5 (11.5-14.5) % Plt Count 201 (130-400) K/uL MPV 10.2 (9.4-12.4) fL Immature Gran % (Auto) 0.5 % Neut % (Auto) 83.6 % Lymph % (Auto) 10.4 % Cameron % (Auto) 5.1 % Eos % (Auto) 0.1 % Baso % (Auto) 0.3 % Neut # (Auto) 13.82 H (1.40-6.50) K/uL Lymph # (Auto) 1.71 (1.20-3.40) K/uL Cameron # (Auto) 0.84 H (0.11-0.59) K/uL Eos # (Auto) 0.01 (0.00-0.50) K/uL Baso # (Auto) 0.05 (0.00-0.20) K/uL Immature Gran # (Auto) 0.08 (0.01-0.20) K/uL PT 10.5 (9.0-12.0) Seconds INR 1.0 (0.9-1.1) Sodium 134 L (136-145) mmol/L Potassium 4.8 (3.5-5.1) mmol/L Chloride 102 (98-107) mmol/L Carbon Dioxide 25 (21-32) mmol/L Anion Gap 7 (3-11) BUN 19 (6-23) mg/dl Creatinine 1.43 H (0.6-1.4) mg/dl Est Cr Clr Drug Dosing 39.0 ml/min Est GFR ( Amer) 54.4 ml/min Est GFR (Non-Af Amer) 46.9 ml/min BUN/Creatinine Ratio 13.3 (10-20) Glucose 172 H (70-99(Fasting)) mg/dl Lactate (0.4-2.0) mmol/L Calcium 9.6 (8.6-10.3) mg/dl Phosphorus (2.5-4.9) mg/dl Magnesium 2.1 (1.7-2.4) mg/dl Total Bilirubin 0.6 (0.2-1.0) mg/dl AST 15 (13-39) U/L ALT 19 (7-52) U/L Alkaline Phosphatase 84 (34-104) U/L Total Creatine Kinase 40 (30-223) U/L Troponin I High Sens 4.1 (0-20) pg/ml Total Protein 6.8 (6.0-8.3) gm/dl Albumin 4.1 (3.4-5.0) gm/dl Globulin 2.7 (2.5-4.0) gm/dl Albumin/Globulin Ratio 1.5 (0.9-2) TSH 3.465 (0.300-4.500) uIu/ml Adenovirus (PCR) Not Detected (NotDetected) B. pertussis DNA (PCR) Not Detected (NotDetected) B.parapertussis DNA PCR Not Detected (NotDetected) C. pneumoniae DNA (PCR) Not Detected (NotDetected) Coronavirus OC43 (PCR) Not Detected (NotDetected) Coronavirus HKU1 (PCR) Not Detected (NotDetected) Coronavirus 229E (PCR) Not Detected (NotDetected) SARS-CoV-2 (PCR) Not Detected (NotDetected) Coronavirus NL63 (PCR) Not Detected (NotDetected) Human Metapneumovir PCR Not Detected (NotDetected) Influenza Type A (PCR) Not Detected (NotDetected) Influenza Type B (PCR) Not Detected (NotDetected) M. pneumoniae (PCR) Not Detected (NotDetected) Parainfluenza 1 (PCR) Not Detected (NotDetected) Parainfluenza 2 (PCR) Not Detected (NotDetected) Parainfluenza 3 (PCR) Not Detected (NotDetected) Parainfluenza 4 (PCR) Not Detected (NotDetected) RSV (PCR) Not Detected (NotDetected) Entero/Rhino (PCR) Not Detected (NotDetected) (2) Incisional hernia Obstruction and gangrene presence: with obstruction but without gangrene Qualified Code(s): K43.0 - Incisional hernia with obstruction, without gangrene
[2023-08-10] MEDS: ENOXAPARIN INJ 40 MG/0.4 ML SYR SQ SCH (09:58)
[2023-08-10 15:39] LABS: Appearance Urine Clear (Clear); Bacteria Urine Automated Negative (Negative); Blood Urine Negative (Negative); Color Urine Dark Yellow; Glucose Urine UA Negative (Negative); Ketones Urine Negative (Negative); Leukocyte Esterase Urine Trace (Negative); Nitrite Urine Negative (Negative); Protein Urine Trace (Negative); RBC Urine Automated 0-4 /hpf (0-4); Specific Gravity Urine 1.023 (1.000-1.030); Urobilinogen Urine Negative (Negative); pH Urine 5.5 (4.5-7.5)
[2023-08-10 15:45] LABS: Bilirubin Urine 1+ (Negative)
[2023-08-11 06:11] LABS: Hematocrit (blood only) 36.7 % (42.0-52.0); Hemoglobin 12.2 g/dl (14.0-18.0); Mean Corpuscular Hemoglobin 30.4 pg (25.0-34.0); Mean Corpuscular Hgb Conc 33.2 g/dL (32.0-36.0); Mean Corpuscular Volume 91.5 fL (80.0-100.0); Mean Platelet Volume 10.4 fL (9.4-12.4); Platelet Count 161 K/uL (130-400); RDW Coefficient of Variation 14.5 % (11.5-14.5); RDW Standard Deviation 48.5 fL (36.4-46.3); Red Blood Count 4.01 M/uL (4.70-6.10); White Blood Count 10.68 K/ul (4.8-10.8)
[2023-08-11 06:31] LABS: BUN Creatinine Ratio 14.3 (10-20); Calcium 7.9 mg/dl (8.6-10.3); Creatinine Clr Calc Pharmacy 53.2 ml/min; Est GFR (Non-African American) 68.1 ml/min; Phosphorus 3.2 mg/dl (2.5-4.9); Potassium 3.9 mmol/L (3.5-5.1)
--- NOTE | 2023-08-11 07:41 | Hospitalist Progress Note ---
Date of Service August 11, 2023 Assessment & Plan (1) SBO (small bowel obstruction): Plan: 77-yo M with past medical history significant for hyperlipidemia, infrarenal abdominal aortic aneurysm 3.[address] scan done on July 2023, ongoing tobacco abuse, illiteracy and low-level literacy, history of falling, peripheral vascular disease, history of right nephrectomy, and in first week of July 2023 he fell and had an L2 spine fracture and was transferred to [facility] seen by Ortho and decided for conservative management and during that hospitalization bedside I&D was done for infected cyst on the back and currently is ambulating with walker and also getting a home health to help with the dressing of his I&D site comes today because of fall and abdominal pain and found to have small bowel obstruction. Patient states when he is going to the bathroom he fell backwards did not hit his head no loss of consciousness. They were friends in the house who helped him to get up and after that he was able to ambulate. Last couple of days he was having abdominal pain. Eating makes his abdominal pain worse. Yesterday he had a bowel movement but was constipated. Currently not passing gas. Denies nausea. No fevers. S/p NG tube in the ER. Small bowel obstruction Abdominal pain On the CAT scan sbo and there was question of ischemic component Surgery consulted and following s/p NG-tube initially - now out (pt says it fell out) IV fluids, IV Dilaudid., IV antiemetics as needed He is now passing flatus, no BM yet currently trying syrian ice Monitor in the medical floor Falls Lumbar spine CT no new fractures Follow imaging studies PT OT when able to ARLENE Getting fluids Avoid nephrotoxic agents Follow repeat labs Leukocytosis- improved Ongoing smoking Monitor Hyperlipidemia Holding statin n.p.o. restart when able DVT prophylaxis Lovenox Disposition Medical floor Full code Admission and Anticipated Discharge Date Admission Date: August 10, 2023 Subjective Patient seen in follow-up of small bowel obstruction, had NG tube - now removed (pt says it fell out) Surgery consulted and following Currently sitting up in bed, in no acute distress, eating Setswana ice. Says abdominal pain is much improved. He is passing gas, no BM yet. No fevers chills chest pain shortness of breath Review of Systems Review of Systems: All systems reviewed & are unremarkable except as noted in Subjective Physical Exam Physical Exam: General- slim M in NAD Head- atraumatic Eyes- PERRL. Neck- supple Lungs- clear to auscultation no wheezing or crackles. Heart- regular rhythm; no murmur, no gallop. Abdomen- bowel sounds present , soft, minimally tender, mild distension Extremities- no pretibial edema, no erythema seen. Neuro- alert, oriented ; PERRL, hard of hearing, no facial palsy; no dysarthria, moves extremities Skin- No obvious drainage or erythema seen at the back cyst I and D site. Results & Data Results & Data Vital Signs (Past 12 Hours) Vital Signs Temp Pulse Resp BP BP Pulse Ox O2 Del Method 08/11/23 07:22 36.7 C 80 14 105/68 94 Room Air 08/10/23 23:12 37.1 C 86 16 134/86 93 Room Air 08/10/23 19:49 Room Air Laboratory Results 08/11/23 08/10/23 08/10/23 Range/Units 05:39 15:15 06:48 WBC 10.68 (4.8-10.8) K/ul RBC 4.01 L (4.70-6.10) M/uL Hgb 12.2 L (14.0-18.0) g/dl Hct 36.7 L (42.0-52.0) % MCV 91.5 (80.0-100.0) fL MCH 30.4 (25.0-34.0) pg MCHC 33.2 (32.0-36.0) g/dL RDW Std Deviation 48.5 H (36.4-46.3) fL RDW Coeff of Gabriela 14.5 (11.5-14.5) % Plt Count 161 (130-400) K/uL MPV 10.4 (9.4-12.4) fL Sodium 135 L (136-145) mmol/L Potassium 3.9 (3.5-5.1) mmol/L Chloride 104 (98-107) mmol/L Carbon Dioxide 27 (21-32) mmol/L Anion Gap 4 (3-11) BUN 15 (6-23) mg/dl Creatinine 1.05 (0.6-1.4) mg/dl Est Cr Clr Drug Dosing 53.2 ml/min Est GFR ( Amer) 79.0 ml/min Est GFR (Non-Af Amer) 68.1 ml/min BUN/Creatinine Ratio 14.3 (10-20) Glucose 128 H (70-99(Fasting)) mg/dl Calcium 7.9 L (8.6-10.3) mg/dl Phosphorus 3.2 3.7 (2.5-4.9) mg/dl Magnesium 2.0 (1.7-2.4) mg/dl Urine Color Dark Yellow Urine Appearance Clear (Clear) Urine pH 5.5 (4.5-7.5) Ur Specific [place] 1.023 (1.000-1.030) Urine Protein Trace H (Negative) Urine Glucose (UA) Negative (Negative) Urine Ketones Negative (Negative) Urine Blood Negative (Negative) Urine Nitrite Negative (Negative) Urine Bilirubin 1+ H (Negative) Urine Urobilinogen Negative (Negative) Ur Leukocyte Esterase Trace H (Negative) Urine WBC (Auto) 1-5 (0-5) /hpf Urine RBC (Auto) 0-4 (0-4) /hpf U Hyaline Cast (Auto) 10-30 H (0-5) /lpf U Epithel Cells (Auto) 10-20 H (0-5) /lpf Urine Bacteria (Auto) Negative (Negative) Medications Administered Current Inpatient Medications Enoxaparin Sodium (Enoxaparin Inj 40 Mg/0.4 Ml Syr) 40 mg SQ Q24H BRANDIE Stop: 09/09/23 08:59 Last Admin: 08/10/23 09:58 Dose: 40 mg Hydromorphone HCl (Hydromorphone Inj 0.5 Mg/0.5 Ml Syr) 0.25 mg IV Q3H PRN PRN Reason: Pain Stop: 08/24/23 05:40 Dextrose/Sodium Chloride (D5w And 1/2nss) 1,000 mls @ 125 mls/hr IV .Q8H BRANDIE Stop: 09/09/23 05:40 Last Admin: 08/11/23 05:06 Dose: 125 mls/hr Ondansetron HCl (Ondansetron Inj 2 Mg/Ml 2 Ml Vial) 4 mg IV Q6H PRN PRN Reason: Nausea Stop: 09/09/23 05:40 Last Admin: 08/10/23 21:47 Dose: 4 mg
--- NOTE | 2023-08-11 10:16 | Surgery Progress Note ---
Date of Service August 11, 2023 Assessment & Plan (1) Small bowel obstruction: (2) Incisional hernia: Plan 77-year-old gentleman with extensive history of abdominal surgery presents due to fall at home. He was noted on CT scan to have a small bowel obstruction with a transition point near his large incisional midline hernia. On exam, the midline hernia is completely reducible with minimal pain or tenderness. His vital signs are all stable. He has no fever. NG tube in place,400 cc last shift, passing flatus. Lactic acid normalized. Plan: NGT fell out after rounds Okay to start clear liquids as passing gas KUB with improvement abdominal binder continue medical management Dr. Henry has seen and examined patient,nanda islas with above. Admission and Anticipated Discharge Date Admission Date: August 10, 2023 Supervising Physician Co-Signing Physician Notes I have seen and examined the patient personally and agree with the above assessment and plan. Of note, he continues to improve. His abdomen is soft and nontender on exam. The hernia continues to be reducible. He has passed some flatus we will start clear liquid diet. We will advance slowly. Will continue to follow. Subjective feeling better today pain about 1/10 but still present passing flatus, started last evening no bowel movement no nausea or vomiting Physical Exam Constitutional: cooperative and comfortable; no acute distress, not ill appearing and not in distress Respiratory: normal respiratory effort; no respiratory distress Gastrointestinal (Abdomen): Inspection/Auscultation: abdomen normal to inspection, + visible herniation (large right sided abdominal wall hernia with loss of domain) and + abdominal surgical scar (RUQ and midline laparotomy); abdomen not distended Percussion/Palpation: + abdomen tender (midline incisional hernia), abdomen soft and + hernia (midline hernia reducible) Skin: no rashes, warm and dry Psychiatric: Orientation: alert and oriented x 3 Results & Data Vital Signs (Past 12 Hours) Vital Signs Temp Pulse Resp BP BP Pulse Ox O2 Del Method 08/11/23 07:22 36.7 C 80 14 105/68 94 Room Air 08/10/23 23:12 37.1 C 86 16 134/86 93 Room Air Laboratory Results 08/11/23 08/10/23 Range/Units 05:39 15:15 WBC 10.68 (4.8-10.8) K/ul RBC 4.01 L (4.70-6.10) M/uL Hgb 12.2 L (14.0-18.0) g/dl Hct 36.7 L (42.0-52.0) % MCV 91.5 (80.0-100.0) fL MCH 30.4 (25.0-34.0) pg MCHC 33.2 (32.0-36.0) g/dL RDW Std Deviation 48.5 H (36.4-46.3) fL RDW Coeff of Gabriela 14.5 (11.5-14.5) % Plt Count 161 (130-400) K/uL MPV 10.4 (9.4-12.4) fL Sodium 135 L (136-145) mmol/L Potassium 3.9 (3.5-5.1) mmol/L Chloride 104 (98-107) mmol/L Carbon Dioxide 27 (21-32) mmol/L Anion Gap 4 (3-11) BUN 15 (6-23) mg/dl Creatinine 1.05 (0.6-1.4) mg/dl Est Cr Clr Drug Dosing 53.2 ml/min Est GFR ( Amer) 79.0 ml/min Est GFR (Non-Af Amer) 68.1 ml/min BUN/Creatinine Ratio 14.3 (10-20) Glucose 128 H (70-99(Fasting)) mg/dl Calcium 7.9 L (8.6-10.3) mg/dl Phosphorus 3.2 (2.5-4.9) mg/dl Magnesium 2.0 (1.7-2.4) mg/dl Urine Color Dark Yellow Urine Appearance Clear (Clear) Urine pH 5.5 (4.5-7.5) Ur Specific [place] 1.023 (1.000-1.030) Urine Protein Trace H (Negative) Urine Glucose (UA) Negative (Negative) Urine Ketones Negative (Negative) Urine Blood Negative (Negative) Urine Nitrite Negative (Negative) Urine Bilirubin 1+ H (Negative) Urine Urobilinogen Negative (Negative) Ur Leukocyte Esterase Trace H (Negative) Urine WBC (Auto) 1-5 (0-5) /hpf Urine RBC (Auto) 0-4 (0-4) /hpf U Hyaline Cast (Auto) 10-30 H (0-5) /lpf U Epithel Cells (Auto) 10-20 H (0-5) /lpf Urine Bacteria (Auto) Negative (Negative) (2) Incisional hernia Obstruction and gangrene presence: with obstruction but without gangrene Qualified Code(s): K43.0 - Incisional hernia with obstruction, without gangrene
--- NOTE | 2023-08-11 13:30 | XRay Report ---
XR KUB/Abdomen 1 view CLINICAL HISTORY: eval SBO TECHNIQUE: 1 view of the abdomen was obtained. Comparison: Comparison is made to abdomen radiograph 08/10/[address] abdomen pelvis 08/10/2023 FINDINGS: Lung bases are unremarkable. Degenerative changes are seen in the visualized skeleton. There are a fe w gas dilated loops of small bowel measuring up to 38 mm. Small stool burden is seen. IMPRESSION: A few gas-distended loops of small bowel. ACT 112: Negative or not required by law. Electronically signed by: Matthew Diaz M.D. 08/11/2023 1:28 PM
[2023-08-12 07:03] LABS: Hemoglobin 11.7 g/dl (14.0-18.0); Mean Corpuscular Hemoglobin 29.8 pg (25.0-34.0); Mean Corpuscular Hgb Conc 32.5 g/dL (32.0-36.0); Mean Corpuscular Volume 91.8 fL (80.0-100.0); Mean Platelet Volume 10.3 fL (9.4-12.4); Platelet Count 133 K/uL (130-400); RDW Standard Deviation 47.4 fL (36.4-46.3); Red Blood Count 3.92 M/uL (4.70-6.10); White Blood Count 8.64 K/ul (4.8-10.8)
[2023-08-12 07:32] LABS: Calcium 7.6 mg/dl (8.6-10.3); Est GFR (African American) 95.1 ml/min; Est GFR (Non-African American) 82.1 ml/min; Magnesium 1.8 mg/dl (1.7-2.4); Potassium 3.7 mmol/L (3.5-5.1)
--- NOTE | 2023-08-12 09:54 | Hospitalist Progress Note ---
Date of Service August 12, 2023 Assessment & Plan (1) SBO (small bowel obstruction): Plan: 77-yo M with past medical history significant for hyperlipidemia, infrarenal abdominal aortic aneurysm 3.[address] scan done on July 2023, ongoing tobacco abuse, illiteracy and low-level literacy, history of falling, peripheral vascular disease, history of right nephrectomy, and in first week of July 2023 he fell and had an L2 spine fracture and was transferred to [facility] seen by Ortho and decided for conservative management and during that hospitalization bedside I&D was done for infected cyst on the back and currently is ambulating with walker and also getting a home health to help with the dressing of his I&D site comes today because of fall and abdominal pain and found to have small bowel obstruction. Patient states when he is going to the bathroom he fell backwards did not hit his head no loss of consciousness. They were friends in the house who helped him to get up and after that he was able to ambulate. Last couple of days he was having abdominal pain. Eating makes his abdominal pain worse. Yesterday he had a bowel movement but was constipated. Currently not passing gas. Denies nausea. No fevers. S/p NG tube in the ER. Small bowel obstruction Abdominal pain On the CAT scan sbo and there was question of ischemic component Surgery consulted and following s/p NG-tube initially - now out (pt says it fell out) IV fluids, IV Dilaudid., IV antiemetics as needed Had a BM advancing diet cont. to monitor Falls Lumbar spine CT no new fractures Follow imaging studies PT OT - likely will need rehab ARLENE - resolved Cr 1.4 on admission Getting fluids Cr down to 0.9 Avoid nephrotoxic agents Follow repeat labs Leukocytosis- resolved WBC now normalized Monitor Hyperlipidemia Holding statin n.p.o. restart when able DVT prophylaxis Lovenox Disposition Medical floor Full code Admission and Anticipated Discharge Date Admission Date: August 10, 2023 Subjective Patient seen in follow-up of small bowel obstruction Surgery consulted and following Currently laying in bed, in no acute distress, says abdominal pain is much improved. He had a BM. No fevers chills chest pain shortness of breath likely will need rehab after DC and follow up with surgery for hernia repair Review of Systems Review of Systems: All systems reviewed & are unremarkable except as noted in Subjective Physical Exam Physical Exam: General- slim M in NAD Head- atraumatic Eyes- PERRL. Neck- supple Lungs- clear to auscultation no wheezing or crackles. Heart- regular rhythm; no murmur, no gallop. Abdomen- bowel sounds present , soft, + bowel sounds, minimally tender to palp. Extremities- no pretibial edema, no erythema seen. Neuro- alert, oriented ; PERRL, hard of hearing, no facial palsy; no dysarthria, moves extremities Skin- No obvious drainage or erythema seen at the back cyst I and D site. Results & Data Results & Data Vital Signs (Past 12 Hours) Vital Signs Temp Pulse Resp BP Pulse Ox O2 Del Method 08/12/23 07:07 36.7 C 71 16 114/65 96 Room Air Laboratory Results 08/12/23 Range/Units 06:23 WBC 8.64 (4.8-10.8) K/ul RBC 3.92 L (4.70-6.10) M/uL Hgb 11.7 L (14.0-18.0) g/dl Hct 36.0 L (42.0-52.0) % MCV 91.8 (80.0-100.0) fL MCH 29.8 (25.0-34.0) pg MCHC 32.5 (32.0-36.0) g/dL RDW Std Deviation 47.4 H (36.4-46.3) fL RDW Coeff of Gabriela 14.0 (11.5-14.5) % Plt Count 133 (130-400) K/uL MPV 10.3 (9.4-12.4) fL Sodium 134 L (136-145) mmol/L Potassium 3.7 (3.5-5.1) mmol/L Chloride 104 (98-107) mmol/L Carbon Dioxide 26 (21-32) mmol/L Anion Gap 4 (3-11) BUN 9 (6-23) mg/dl Creatinine 0.90 (0.6-1.4) mg/dl Est Cr Clr Drug Dosing 62.0 ml/min Est GFR ( Amer) 95.1 ml/min Est GFR (Non-Af Amer) 82.1 ml/min BUN/Creatinine Ratio 10.0 (10-20) Glucose 125 H (70-99(Fasting)) mg/dl Calcium 7.6 L (8.6-10.3) mg/dl Magnesium 1.8 (1.7-2.4) mg/dl Medications Administered Current Inpatient Medications Enoxaparin Sodium (Enoxaparin Inj 40 Mg/0.4 Ml Syr) 40 mg SQ Q24H BRANDIE Stop: 09/09/23 08:59 Last Admin: 08/12/23 07:34 Dose: 40 mg Hydromorphone HCl (Hydromorphone Inj 0.5 Mg/0.5 Ml Syr) 0.25 mg IV Q3H PRN PRN Reason: Pain Stop: 08/24/23 05:40 Dextrose/Sodium Chloride (D5w And 1/2nss) 1,000 mls @ 125 mls/hr IV .Q8H BRANDIE Stop: 09/09/23 05:40 Last Admin: 08/12/23 05:20 Dose: 125 mls/hr Ondansetron HCl (Ondansetron Inj 2 Mg/Ml 2 Ml Vial) 4 mg IV Q6H PRN PRN Reason: Nausea Stop: 09/09/23 05:40 Last Admin: 08/10/23 21:47 Dose: 4 mg
[2023-08-12] MEDS: POTASSIUM CHLORIDE / WTR 10 MEQ/100 ML PLCT IV ONE (10:23)
[2023-08-12] MEDS: MAGNESIUM SULFATE / D5W 1 GM/100 ML BAG IV ONE (11:20)
--- NOTE | 2023-08-12 13:11 | Surgery Progress Note ---
Date of Service August 12, 2023 Assessment & Plan (1) Small bowel obstruction: (2) Incisional hernia: Plan 77-year-old gentleman with extensive history of abdominal surgery presents due to fall at home. He was noted on CT scan to have a small bowel obstruction with a transition point near his large incisional midline hernia. On exam, the midline hernia is completely reducible with minimal pain or tenderness. His vital signs are all stable. He has no fever. has had return of bowel function. Plan: advance diet to low fiber highly recommend abdominal binder will need outpatient surgery follow-up to discuss surgical repair of hernia Dr. Henry has seen and examined patient,agrees with above. Admission and Anticipated Discharge Date Admission Date: August 10, 2023 Supervising Physician Co-Signing Physician Notes I have seen and examined the patient personally and agree with the above assessment and plan. He states he is feeling much better today. He has had 2 bowel movements. On exam his abdomen is soft, the hernia is reducible. We will advance his diet as tolerated. Recommend abdominal binder. He will need outpatient follow-up to discuss repair of the hernia. Subjective feeling better pain still present with coughing passing gas and had bowel movements no n,v tolerating clear liquids Physical Exam Constitutional: WD/WN, vitals as above cooperative and comfortable; no acute distress and not ill appearing Gastrointestinal (Abdomen): Inspection/Auscultation: + visible herniation (large right sided ventral hernia, midline ventral hernia, soft, reducible) and + abdominal surgical scar (RUQ and midline laparotomy); abdomen not distended Percussion/Palpation: + abdomen tender (midline hernia on palpation) and abdomen soft; no guarding, abdomen not rigid and abdomen not firm Psychiatric: Orientation: alert and oriented x 3 Results & Data Vital Signs (Past 12 Hours) Vital Signs Temp Pulse Resp BP Pulse Ox O2 Del Method 08/12/23 07:07 36.7 C 71 16 114/65 96 Room Air Laboratory Results 08/12/23 Range/Units 06:23 WBC 8.64 (4.8-10.8) K/ul RBC 3.92 L (4.70-6.10) M/uL Hgb 11.7 L (14.0-18.0) g/dl Hct 36.0 L (42.0-52.0) % MCV 91.8 (80.0-100.0) fL MCH 29.8 (25.0-34.0) pg MCHC 32.5 (32.0-36.0) g/dL RDW Std Deviation 47.4 H (36.4-46.3) fL RDW Coeff of Gabriela 14.0 (11.5-14.5) % Plt Count 133 (130-400) K/uL MPV 10.3 (9.4-12.4) fL Sodium 134 L (136-145) mmol/L Potassium 3.7 (3.5-5.1) mmol/L Chloride 104 (98-107) mmol/L Carbon Dioxide 26 (21-32) mmol/L Anion Gap 4 (3-11) BUN 9 (6-23) mg/dl Creatinine 0.90 (0.6-1.4) mg/dl Est Cr Clr Drug Dosing 62.0 ml/min Est GFR ( Amer) 95.1 ml/min Est GFR (Non-Af Amer) 82.1 ml/min BUN/Creatinine Ratio 10.0 (10-20) Glucose 125 H (70-99(Fasting)) mg/dl Calcium 7.6 L (8.6-10.3) mg/dl Magnesium 1.8 (1.7-2.4) mg/dl (2) Incisional hernia Obstruction and gangrene presence: with obstruction but without gangrene Qualified Code(s): K43.0 - Incisional hernia with obstruction, without gangrene
[2023-08-13 06:15] LABS: Hematocrit (blood only) 33.6 % (42.0-52.0); Hemoglobin 11.2 g/dl (14.0-18.0); Mean Corpuscular Hemoglobin 30.2 pg (25.0-34.0); Mean Corpuscular Hgb Conc 33.3 g/dL (32.0-36.0); Mean Corpuscular Volume 90.6 fL (80.0-100.0); Mean Platelet Volume 10.6 fL (9.4-12.4); Platelet Count 131 K/uL (130-400); RDW Coefficient of Variation 13.6 % (11.5-14.5); RDW Standard Deviation 44.8 fL (36.4-46.3); Red Blood Count 3.71 M/uL (4.70-6.10); White Blood Count 7.12 K/ul (4.8-10.8)
[2023-08-13 06:36] LABS: BUN Creatinine Ratio 10.8 (10-20); Calcium 7.7 mg/dl (8.6-10.3); Creatinine Clr Calc Pharmacy 67.3 ml/min; Est GFR (African American) 98.4 ml/min; Est GFR (Non-African American) 84.9 ml/min; Phosphorus 2.8 mg/dl (2.5-4.9); Potassium 3.9 mmol/L (3.5-5.1)
--- NOTE | 2023-08-13 06:36 | Hospitalist Progress Note ---
Date of Service August 13, 2023 Assessment & Plan (1) SBO (small bowel obstruction): Plan: 77-yo M with past medical history significant for hyperlipidemia, infrarenal abdominal aortic aneurysm 3.[address] scan done on July 2023, ongoing tobacco abuse, illiteracy and low-level literacy, history of falling, peripheral vascular disease, history of right nephrectomy, and in first week of July 2023 he fell and had an L2 spine fracture and was transferred to [facility] seen by Ortho and decided for conservative management and during that hospitalization bedside I&D was done for infected cyst on the back and currently is ambulating with walker and also getting a home health to help with the dressing of his I&D site comes today because of fall and abdominal pain and found to have small bowel obstruction. Patient states when he is going to the bathroom he fell backwards did not hit his head no loss of consciousness. They were friends in the house who helped him to get up and after that he was able to ambulate. Last couple of days he was having abdominal pain. Eating makes his abdominal pain worse. Yesterday he had a bowel movement but was constipated. Currently not passing gas. Denies nausea. No fevers. S/p NG tube in the ER. Small bowel obstruction Abdominal pain On the CAT scan sbo and there was question of ischemic component Surgery consulted and following s/p NG-tube initially - now out IV fluids - now stopped, IV Dilaudid., IV antiemetics as needed Had a BM advancing diet cont. to monitor Plan to follow up w/ surgery as outpt for hernia repair. Falls Lumbar spine CT no new fractures Follow imaging studies PT OT - likely will need rehab ARLENE - resolved Cr 1.4 on admission Getting fluids Cr down to 0.9 Avoid nephrotoxic agents Follow repeat labs Leukocytosis- resolved WBC now normalized Monitor Hyperlipidemia Holding statin n.p.o. restart when able DVT prophylaxis Lovenox Disposition Medical floor Full code Admission and Anticipated Discharge Date Admission Date: August 10, 2023 Subjective Patient seen in follow-up of small bowel obstruction Surgery consulted and following Currently laying in bed, in no acute distress, says abdominal pain is resolved. He had a BM. Diet advanced. No fevers chills chest pain shortness of breath likely will need rehab after DC and follow up with surgery for hernia repair Review of Systems Review of Systems: All systems reviewed & are unremarkable except as noted in Subjective Physical Exam Physical Exam: General- slim M in NAD Head- atraumatic Eyes- PERRL. Neck- supple Lungs- clear to auscultation no wheezing or crackles. Heart- regular rhythm; no murmur, no gallop. Abdomen- bowel sounds present , soft, + bowel sounds, non-tender to palp. Extremities- no pretibial edema, no erythema seen. Neuro- alert, oriented ; PERRL, hard of hearing, no facial palsy; no dysarthria, moves extremities Skin- No obvious drainage or erythema seen at the back cyst I and D site. Results & Data Results & Data Vital Signs (Past 12 Hours) Vital Signs Temp Pulse Resp BP Pulse Ox O2 Del Method 08/12/23 22:25 37.0 C 66 16 116/69 95 Room Air Laboratory Results 08/13/23 Range/Units 05:35 WBC 7.12 (4.8-10.8) K/ul RBC 3.71 L (4.70-6.10) M/uL Hgb 11.2 L (14.0-18.0) g/dl Hct 33.6 L (42.0-52.0) % MCV 90.6 (80.0-100.0) fL MCH 30.2 (25.0-34.0) pg MCHC 33.3 (32.0-36.0) g/dL RDW Std Deviation 44.8 (36.4-46.3) fL RDW Coeff of Gabriela 13.6 (11.5-14.5) % Plt Count 131 (130-400) K/uL MPV 10.6 (9.4-12.4) fL Sodium 136 (136-145) mmol/L Potassium 3.9 (3.5-5.1) mmol/L Chloride 109 H (98-107) mmol/L Carbon Dioxide 25 (21-32) mmol/L Anion Gap 2 L (3-11) BUN 9 (6-23) mg/dl Creatinine 0.83 (0.6-1.4) mg/dl Est Cr Clr Drug Dosing 67.3 ml/min Est GFR ( Amer) 98.4 ml/min Est GFR (Non-Af Amer) 84.9 ml/min BUN/Creatinine Ratio 10.8 (10-20) Glucose 106 H (70-99(Fasting)) mg/dl Calcium 7.7 L (8.6-10.3) mg/dl Phosphorus 2.8 (2.5-4.9) mg/dl Magnesium 2.0 (1.7-2.4) mg/dl Medications Administered Current Inpatient Medications Enoxaparin Sodium (Enoxaparin Inj 40 Mg/0.4 Ml Syr) 40 mg SQ Q24H BRANDIE Stop: 09/09/23 08:59 Last Admin: 08/12/23 07:34 Dose: 40 mg Hydromorphone HCl (Hydromorphone Inj 0.5 Mg/0.5 Ml Syr) 0.25 mg IV Q3H PRN PRN Reason: Pain Stop: 08/24/23 05:40 Dextrose/Sodium Chloride (D5w And 1/2nss) 1,000 mls @ 125 mls/hr IV .Q8H BRANDIE Stop: 09/09/23 05:40 Last Admin: 08/13/23 04:46 Dose: 125 mls/hr Ondansetron HCl (Ondansetron Inj 2 Mg/Ml 2 Ml Vial) 4 mg IV Q6H PRN PRN Reason: Nausea Stop: 09/09/23 05:40 Last Admin: 08/10/23 21:47 Dose: 4 mg
--- NOTE | 2023-08-13 11:37 | Surgery Progress Note ---
Date of Service August 13, 2023 Assessment & Plan (1) Small bowel obstruction: (2) Incisional hernia: Plan 77-year-old gentleman with extensive history of abdominal surgery presents due to fall at home. He was noted on CT scan to have a small bowel obstruction with a transition point near his large incisional midline hernia. On exam, the midline hernia is completely reducible with minimal pain or tenderness. His vital signs are all stable. He has no fever. Has had return of bowel function Plan: No emergent surgical intervention required at this time okay from surgical standpoint for discharge encouraged wearing abdominal binder to prevent recurrent incarceration will likely need surgical repair, may need hernia specialist, surgical follow-up on discharge Discussed with Dr. Henry who agrees with above. Admission and Anticipated Discharge Date Admission Date: August 10, 2023 Subjective no abdominal pain, pain only with coughing (baseline) tolerated diet passing flatus Physical Exam Constitutional: WD/WN, vitals as above cooperative and comfortable; no acute distress and not ill appearing Respiratory: normal respiratory effort; no respiratory distress and no labored breathing Gastrointestinal (Abdomen): Inspection/Auscultation: abdomen normal to inspection, + visible herniation (large right ventral hernia, midline hernia reducible) and + abdominal surgical scar (RUQ and midline laparotomy); abdomen not distended Percussion/Palpation: + abdomen tender (upon reduction of hernia otherwise nontender) and abdomen soft; no guarding, abdomen not rigid and abdomen not firm Skin: no rashes, warm and dry Psychiatric: Orientation: alert and oriented x 3 Results & Data Vital Signs (Past 12 Hours) Vital Signs Temp Pulse Resp BP Pulse Ox O2 Del Method 08/13/23 07:34 36.7 C 58 L 16 123/77 95 Room Air Laboratory Results 08/13/23 Range/Units 05:35 WBC 7.12 (4.8-10.8) K/ul RBC 3.71 L (4.70-6.10) M/uL Hgb 11.2 L (14.0-18.0) g/dl Hct 33.6 L (42.0-52.0) % MCV 90.6 (80.0-100.0) fL MCH 30.2 (25.0-34.0) pg MCHC 33.3 (32.0-36.0) g/dL RDW Std Deviation 44.8 (36.4-46.3) fL RDW Coeff of Gabriela 13.6 (11.5-14.5) % Plt Count 131 (130-400) K/uL MPV 10.6 (9.4-12.4) fL Sodium 136 (136-145) mmol/L Potassium 3.9 (3.5-5.1) mmol/L Chloride 109 H (98-107) mmol/L Carbon Dioxide 25 (21-32) mmol/L Anion Gap 2 L (3-11) BUN 9 (6-23) mg/dl Creatinine 0.83 (0.6-1.4) mg/dl Est Cr Clr Drug Dosing 67.3 ml/min Est GFR ( Amer) 98.4 ml/min Est GFR (Non-Af Amer) 84.9 ml/min BUN/Creatinine Ratio 10.8 (10-20) Glucose 106 H (70-99(Fasting)) mg/dl Calcium 7.7 L (8.6-10.3) mg/dl Phosphorus 2.8 (2.5-4.9) mg/dl Magnesium 2.0 (1.7-2.4) mg/dl (2) Incisional hernia Obstruction and gangrene presence: with obstruction but without gangrene Qualified Code(s): K43.0 - Incisional hernia with obstruction, without gangrene
[2023-08-14 07:56] LABS: Hematocrit (blood only) 35.2 % (42.0-52.0); Hemoglobin 11.7 g/dl (14.0-18.0); Mean Corpuscular Hemoglobin 29.8 pg (25.0-34.0); Mean Corpuscular Hgb Conc 33.2 g/dL (32.0-36.0); Mean Corpuscular Volume 89.8 fL (80.0-100.0); Mean Platelet Volume 10.5 fL (9.4-12.4); Platelet Count 135 K/uL (130-400); RDW Coefficient of Variation 13.6 % (11.5-14.5); RDW Standard Deviation 44.5 fL (36.4-46.3); Red Blood Count 3.92 M/uL (4.70-6.10); White Blood Count 7.68 K/ul (4.8-10.8)
[2023-08-14 08:14] LABS: Calcium 8.2 mg/dl (8.6-10.3); Creatinine Clr Calc Pharmacy 64.9 ml/min; Est GFR (African American) 96.9 ml/min; Est GFR (Non-African American) 83.6 ml/min; Magnesium 1.9 mg/dl (1.7-2.4); Potassium 4.2 mmol/L (3.5-5.1)
--- NOTE | 2023-08-14 16:16 | Hospitalist Progress Note ---
Date of Service August 14, 2023 Assessment & Plan (1) SBO (small bowel obstruction): Plan: per previous hospitalist notes with addendum: 77-yo M with past medical history significant for hyperlipidemia, infrarenal abdominal aortic aneurysm 3.[address] scan done on July 2023, ongoing tobacco abuse, illiteracy and low-level literacy, history of falling, peripheral vascular disease, history of right nephrectomy, and in first week of July 2023 he fell and had an L2 spine fracture and was transferred to [facility] seen by Ortho and decided for conservative management and during that hospitalization bedside I&D was done for infected cyst on the back and currently is ambulating with walker and also getting a home health to help with the dressing of his I&D site comes today because of fall and abdominal pain and found to have small bowel obstruction. Patient states when he is going to the bathroom he fell backwards did not hit his head no loss of consciousness. They were friends in the house who helped him to get up and after that he was able to ambulate. Last couple of days he was having abdominal pain. Eating makes his abdominal pain worse. Yesterday he had a bowel movement but was constipated. Currently not passing gas. Denies nausea. No fevers. S/p NG tube in the ER. Small bowel obstruction Abdominal pain On the CAT scan sbo and there was question of ischemic component Surgery consulted and following s/p NG-tube initially - now out IV fluids - now stopped, IV Dilaudid., IV antiemetics as needed Had a BM advancing diet cont. to monitor Plan to follow up w/ surgery as outpt for hernia repair. 3/7 Small bowel obstruction resolved Tolerating diet well Abdominal wall hernia General surgery on board Recommend to continue with abdominal binder Will likely need surgical repair, surgical follow-up as an outpatient Falls Lumbar spine CT no new fractures Follow imaging studies Awaiting to transition to correction facility ARLENE - resolved Cr 1.4 on admission Getting fluids Cr down to 0.9 Avoid nephrotoxic agents Follow repeat labs Leukocytosis resolved WBC now normalized Monitor Hyperlipidemia Holding statin n.p.o. restart when able DVT prophylaxis Lovenox Disposition Medical floor Full code Admission and Anticipated Discharge Date Admission Date: August 10, 2023 Subjective Follow-up for small bowel obstruction, etc. Resting bedside chair, watching TV, comfortable States he feels fine overall Denies abdominal pain, nausea or vomiting Positive flatus, no bowel movement yet No other new symptoms Review of Systems Review of Systems: all noted and negative except for above Physical Exam Physical Exam: General- oriented x 3, not in distress, speaks in sentences with no effort or accessory muscle use Eyes- anicteric Neck- no JVD Lungs- clear breath sounds bilaterally, no rales/wheezes Heart- normal rate, regular rhythm; no murmurs Abdomen- normal bowel sounds, nondistended, soft, nontender Extremities- no pretibial edema, no calf tenderness Neuro- alert, oriented x 3; no gross focal neurologic deficits Skin- warm & dry Results & Data Results & Data Vital Signs (Past 12 Hours) Vital Signs Temp Pulse Pulse Resp BP BP Pulse Ox 08/14/23 15:07 36.6 C 61 16 136/94 100 08/14/23 13:13 36.5 C 61 16 128/76 98 08/14/23 07:56 36.5 C 71 15 124/68 95 O2 Del Method 08/14/23 15:07 Room Air 08/14/23 13:13 Room Air 08/14/23 07:56 Room Air all noted and reviewed including below
--- NOTE | 2023-08-15 10:38 | Discharge Summary ---
Discharge Summary Date of Service August 15, 2023 Notes For Next Care Provider Medication Changes From Visit None Admission HPI Per Admitting Provider 77-year-old male with past medical history significant for hyperlipidemia, infrarenal abdominal aortic aneurysm 3.[address] scan done on July 2023, ongoing tobacco abuse, illiteracy and low-level literacy, history of falling, p eripheral vascular disease, history of right nephrectomy, and in first week of July 2023 he fell and had an L2 spine fracture and was transferred to [facility] seen by Ortho and decided for conservative management and during that hospitalization bedside I&D was done for infected cyst on the back and currently is ambulating with walker and also getting a home health to help with the dressing of his I&D site comes today because of fall and abdominal pain and found to have small bowel obstruction. Patient states when he is going to the bathroom he fell backwards did not hit his head no loss of consciousness. They were friends in the house who helped him to get up and after that he was able to ambulate. Last couple of days he was having abdominal pain. Eating makes his abdominal pain worse. Yesterday he had a bowel movement but was constipated. Currently not passing gas. Denies nausea. No fevers. No chest pain or shortness of breath. Has cough. No headache. No runny nose. Currently resting comfortably and hemodynamically stable. S/p NG tube in the ER. Patient is hard of hearing Past medical history. As mentioned above Past surgical history. Exploration of abdomen laparoscopically and lysis of adhesions, left knee aspiration, right nephrectomy and cholecystectomy in 1978. Injection of sacroiliac joint. Social history. Currently smokes half pack a day for last 30 years. No alcohol use. No drug use. Family history. No family history on file Admission Exam Per Admitting Provider General- Not in distress Head- atraumatic Eyes- PERRL. ENT- oropharynx clear Neck- supple, Lungs- clear to auscultation no wheezing or crackles. Heart- regular rhythm; no murmur, no gallop. Abdomen- l bowel sounds present , soft, nontender, mild distension Extremities- no pretibial edema, no erythema seen. Neuro- alert, oriented ; PERRL, hard of hearing, no facial palsy; no dysarthria; Skin- No obvious drainage or erythema seen at the back cyst I and D site. Principal Dx & Hospital Course #1 = Principal Diagnosis (1) SBO (small bowel obstruction): per previous hospitalist notes with addendum: 77-yo M with past medical history significant for hyperlipidemia, infrarenal abdominal aortic aneurysm 3.[address] scan done on July 2023, ongoing tobacco abuse, illiteracy and low-level literacy, history of falling, peripheral vascular disease, history of right nephrectomy, and in first week of July 2023 he fell and had an L2 spine fracture and was transferred to [facility] seen by Ortho and decided for conservative management and during that hospitalization bedside I&D was done for infected cyst on the back and currently is ambulating with walker and also getting a home health to help with the dressing of his I&D site comes today because of fall and abdominal pain and found to have small bowel obstruction. Patient states when he is going to the bathroom he fell backwards did not hit his head no loss of consciousness. They were friends in the house who helped him to get up and after that he was able to ambulate. Last couple of days he was having abdominal pain. Eating makes his abdominal pain worse. Yesterday he had a bowel movement but was constipated. Currently not passing gas. Denies nausea. No fevers. S/p NG tube in the ER. Small bowel obstruction Abdominal pain On the CAT scan sbo and there was question of ischemic component Surgery consulted and following s/p NG-tube initially - now out IV fluids - now stopped, IV Dilaudid., IV antiemetics as needed 08/14 (+) BMs Tolerating diet Small bowel obstruction resolved Tolerating diet well Abdominal wall hernia General surgery on board Recommend to continue with abdominal binder Will likely need surgical repair, surgical follow-up as an outpatient Falls Lumbar spine CT no new fractures Awaiting to transition to [facility] facility [facility] - resolved Cr 1.4 on admission received IV fluids Cr down to 0.9 Leukocytosis resolved WBC now normalized Monitor Hyperlipidemia resume Statin DVT prophylaxis Lovenox Disposition Medical floor Full code Discharge Exam General- oriented x 3, not in distress, speaks in sentences with no effort or accessory muscle use Eyes- anicteric Neck- no JVD Lungs- clear breath sounds bilaterally, no rales/wheezes Heart- normal rate, regular rhythm; no murmurs Abdomen- normal bowel sounds, nondistended, soft, nontender Extremities- no pretibial edema, no calf tenderness Neuro- alert, oriented x 3; no gross focal neurologic deficits Skin- warm & dry Updated Medication List Medication Instructions Recorded Confirmed Type atorvastatin 20 mg tablet 20 mg PO DAILY 11/11/20 08/10/23 History Hospital Stay Data Consultations 08/10/23 01:53 Consult General Surgery Routine 08/10/23 02:54 ED Decision to Admit Stat Diagnostic Imagining Performed Laboratory Results WBC 7.68 K/ul (4.8-10.8) 08/14/23 07:07 RBC 3.92 M/uL (4.70-6.10) L 08/14/23 07:07 Hgb 11.7 g/dl (14.0-18.0) L 08/14/23 07:07 Hct 35.2 % (42.0-52.0) L 08/14/23 07:07 MCV 89.8 fL (80.0-100.0) 08/14/23 07:07 MCH 29.8 pg (25.0-34.0) 08/14/23 07:07 MCHC 33.2 g/dL (32.0-36.0) 08/14/23 07:07 RDW Std Deviation 44.5 fL (36.4-46.3) 08/14/23 07:07 RDW Coeff of Gabriela 13.6 % (11.5-14.5) 08/14/23 07:07 Plt Count 135 K/uL (130-400) 08/14/23 07:07 MPV 10.5 fL (9.4-12.4) 08/14/23 07:07 Immature Gran % (Auto) 0.6 % 08/10/23 06:48 Neut % (Auto) 78.8 % 08/10/23 06:48 Lymph % (Auto) 13.8 % 08/10/23 06:48 [place] % (Auto) 6.3 % 08/10/23 06:48 Eos % (Auto) 0.2 % 08/10/23 06:48 Baso % (Auto) 0.3 % 08/10/23 06:48 Neut # (Auto) 12.44 K/uL (1.40-6.50) H 08/10/23 06:48 Lymph # (Auto) 2.18 K/uL (1.20-3.40) 08/10/23 06:48 [place] # (Auto) 0.99 K/uL (0.11-0.59) H 08/10/23 06:48 Eos # (Auto) 0.03 K/uL (0.00-0.50) 08/10/23 06:48 Baso # (Auto) 0.05 K/uL (0.00-0.20) 08/10/23 06:48 Immature Gran # (Auto) 0.09 K/uL (0.01-0.20) 08/10/23 06:48 PT 10.5 Seconds (9.0-12.0) 08/10/23 00:25 INR 1.0 (0.9-1.1) 08/10/23 00:25 Sodium 136 mmol/L (136-145) 08/14/23 07:07 Potassium 4.2 mmol/L (3.5-5.1) 08/14/23 07:07 Chloride 108 mmol/L (98-107) H 08/14/23 07:07 Carbon Dioxide 25 mmol/L (21-32) 08/14/23 07:07 Anion Gap 3 (3-11) 08/14/23 07:07 BUN 12 mg/dl (6-23) 08/14/23 07:07 Creatinine 0.86 mg/dl (0.6-1.4) 08/14/23 07:07 Est Cr Clr Drug Dosing 64.9 ml/min 08/14/23 07:07 Est GFR ( Amer) 96.9 ml/min 08/14/23 07:07 Est GFR (Non-Af Amer) 83.6 ml/min 08/14/23 07:07 BUN/Creatinine Ratio 14.0 (10-20) 08/14/23 07:07 Glucose 90 mg/dl (70-99(Fasting)) 08/14/23 07:07 Lactate 1.0 mmol/L (0.4-2.0) 08/10/23 04:24 Calcium 8.2 mg/dl (8.6-10.3) L 08/14/23 07:07 Phosphorus 3.0 mg/dl (2.5-4.9) 08/14/23 07:07 Magnesium 1.9 mg/dl (1.7-2.4) 08/14/23 07:07 Total Bilirubin 0.6 mg/dl (0.2-1.0) 08/10/23 00:25 AST 15 U/L (13-39) 08/10/23 00:25 ALT 19 U/L (7-52) 08/10/23 00:25 Alkaline Phosphatase 84 U/L (34-104) 08/10/23 00:25 Total Creatine Kinase 40 U/L (30-223) 08/10/23 00:25 Troponin I High Sens 4.1 pg/ml (0-20) 08/10/23 00:25 Total Protein 6.8 gm/dl (6.0-8.3) 08/10/23 00:25 Albumin 4.1 gm/dl (3.4-5.0) 08/10/23 00:25 Globulin 2.7 gm/dl (2.5-4.0) 08/10/23 00:25 Albumin/Globulin Ratio 1.5 (0.9-2) 08/10/23 00:25 TSH 3.465 uIu/ml (0.300-4.500) 08/10/23 00:25 Urine Color Dark Yellow 08/10/23 15:15 Urine Appearance Clear (Clear) 08/10/23 15:15 Urine pH 5.5 (4.5-7.5) 08/10/23 15:15 Ur Specific [place] 1.023 (1.000-1.030) 08/10/23 15:15 Urine Protein Trace (Negative) H 08/10/23 15:15 Urine Glucose (UA) Negative (Negative) 08/10/23 15:15 Urine Ketones Negative (Negative) 08/10/23 15:15 Urine Blood Negative (Negative) 08/10/23 15:15 Urine Nitrite Negative (Negative) 08/10/23 15:15 Urine Bilirubin 1+ (Negative) H 08/10/23 15:15 Urine Urobilinogen Negative (Negative) 08/10/23 15:15 Ur Leukocyte Esterase Trace (Negative) H 08/10/23 15:15 Urine WBC (Auto) 1-5 /hpf (0-5) 08/10/23 15:15 Urine RBC (Auto) 0-4 /hpf (0-4) 08/10/23 15:15 U Hyaline Cast (Auto) 10-30 /lpf (0-5) H 08/10/23 15:15 U Epithel Cells (Auto) 10-20 /lpf (0-5) H 08/10/23 15:15 Urine Bacteria (Auto) Negative (Negative) 08/10/23 15:15 Adenovirus (PCR) Not Detected (NotDetected) 08/10/23 00:26 B. pertussis DNA (PCR) Not Detected (NotDetected) 08/10/23 00:26 B.parapertussis DNA PCR Not Detected (NotDetected) 08/10/23 00:26 C. pneumoniae DNA (PCR) Not Detected (NotDetected) 08/10/23 00:26 Coronavirus OC43 (PCR) Not Detected (NotDetected) 08/10/23 00:26 Coronavirus HKU1 (PCR) Not Detected (NotDetected) 08/10/23 00:26 Coronavirus 229E (PCR) Not Detected (NotDetected) 08/10/23 00:26 SARS-CoV-2 (PCR) Not Detected (NotDetected) 08/10/23 00:26 Coronavirus NL63 (PCR) Not Detected (NotDetected) 08/10/23 00:26 Human Metapneumovir PCR Not Detected (NotDetected) 08/10/23 00:26 Influenza Type A (PCR) Not Detected (NotDetected) 08/10/23 00:26 Influenza Type B (PCR) Not Detected (NotDetected) 08/10/23 00:26 M. pneumoniae (PCR) Not Detected (NotDetected) 08/10/23 00:26 Parainfluenza 1 (PCR) Not Detected (NotDetected) 08/10/23 00:26 Parainfluenza 2 (PCR) Not Detected (NotDetected) 08/10/23 00:26 Parainfluenza 3 (PCR) Not Detected (NotDetected) 08/10/23 00:26 Parainfluenza 4 (PCR) Not Detected (NotDetected) 08/10/23 00:26 RSV (PCR) Not Detected (NotDetected) 08/10/23 00:26 Entero/Rhino (PCR) Not Detected (NotDetected) 08/10/23 00:26 Impressions Chest X-Ray 08/10/23 00:10 XR chest 1V portable CLINICAL HISTORY: weakness, fall TECHNIQUE: Single frontal radiograph of the chest was obtained. Comparison: Comparison is made to chest and abdomen radiographs 07/24/2023 FINDINGS: No lines and tubes are seen. Calcified aortic knob is seen. The lungs are clear. Calcified granuloma is again seen at the medial right lung base. No evidence of pleural effusion or pneumothorax. IMPRESSION: No acute chest disease. ACT 112: Negative or not required by law. Electronically signed by: Matthew Diaz M.D. 08/10/2023 7:08 AM Hip/Pelvis X-Ray 08/10/23 00:10 XR hip LT 2V w pelvis CLINICAL HISTORY: fall, pain TECHNIQUE: 2 views of the left hip and single frontal view of the pelvis were obtained. Comparison: Comparison is made to femur radiograph 08/10/2022 and left knee radiograph 08/10/2023 FINDINGS: There is no evidence of an acute fracture. Joint spaces are well-preserved. No soft tissue abnormality is seen. IMPRESSION: No evidence of acute osseous injury. ACT 112: Negative or not required by law. Electronically signed by: Matthew Diaz M.D. 08/10/2023 7:22 AM Knee X-Ray 08/10/23 00:10 LEFT KNEE 3 VIEWS CLINICAL HISTORY: Fall. Left knee pain. FINDINGS: AP, crosstable lateral, and sunrise views of the left knee are obtained. No prior studies are available for comparison at the time of dictation. The skeletal structures are osteopenic. There is no radiographic evidence of acute fracture. Advanced degenerative narrowing is seen in the medial and patellofemoral compartments. There are marginal osteophytes, patellar enthesophytes, and degenerative beaking of the tibial spine. Chondrocalcinosis is seen in the medial and lateral compartments. A small joint effusion is noted. There is prepatellar soft tissue swelling. IMPRESSION: 1. Small joint effusion with no radiographic evidence of acute fracture. 2. Osteopenia with degenerative change and chondrocalcinosis as above. Electronically signed by: Benjy Hernandez M.D. 08/10/2023 7:[address] 08/10/23 00:10 Exam(s): CT L SPINE EXAM: CT Lumbar Spine Without Intravenous Contrast CLINICAL HISTORY: Reason for exam: fall. TECHNIQUE: Axial computed tomography images of the lumbar spine without intravenous contrast. CTDI is 20.86 mGy and DLP is 983.57 mGy-cm. Automated exposure control was utilized for the study. A dose lowering technique was utilized adhering to the principles of ALARA. COMPARISON: Prior CT abdomen pelvis 07/24/2023 and today 08/10/2023. Prior CT L spine 07/08/2023 FINDINGS: Vertebrae: Similar L2 inferior endplate compression fracture deformity with mild interval increased sclerosis. Discs/spinal canal/neural foramina: Multilevel degenerative changes similar to the prior. Varying degrees of moderate to severe central canal stenosis from L2-L5. Most severe at L3-4. Varying degrees of mild to moderate bilateral foraminal stenoses at multiple levels. Soft tissues: Unremarkable. Other findings: Please see CT abdomen pelvis also today regarding abdominal findings. IMPRESSION: Similar L2 inferior endplate compression fracture deformity with mild interval increased sclerosis. No new fracture or malalignment. Electronically signed by: Ari Fallon M.D. 08/10/23 01:45 AM Abdomen/Pelvis CT 08/10/23 00:12 CR Exam(s): CT ABDOMEN + PELVIS Without Contrast EXAM: CT Abdomen and Pelvis Without Intravenous Contrast CLINICAL HISTORY: Reason for exam: fall, low back pain. TECHNIQUE: Axial computed tomography images of the abdomen and pelvis without intravenous contrast. CTDI is 20.86 mGy and DLP is 983.57 mGy-cm. Automated exposure control was utilized for the study. A dose lowering technique was utilized adhering to the principles of ALARA. COMPARISON: CT Abdomen Pelvis dated 07/24/2023 FINDINGS: Lung bases: Right lower lobe calcified granuloma. No consolidation. ABDOMEN: Liver: Unremarkable. Gallbladder and bile ducts: Cholecystectomy. No ductal dilation. Pancreas: Unremarkable. No ductal dilation. Spleen: Unremarkable. No splenomegaly. Adrenals: Unremarkable. No mass. Kidneys and ureters: Right nephrectomy. Stomach and bowel: Multiple abdominal wall hernias of the anterior and right lateral abdominal wall containing multiple bowel loops. Multiple dilated small bowel loops with air-fluid levels and collapsed distal loops. Transition point is at the inferior ventral hernia near the midline series 3 image 189. Some of the loops in the inferior ventral hernia appears thickened and there is mild mesenteric edema and fat stranding. Markedly distended stomach with fluid and heterogeneous contents. PELVIS: Appendix: Normal appendix within the right lateral abdominal wall hernia. Bladder: Bladder wall thickening versus partial distention. No stones. Reproductive: Unremarkable as visualized. ABDOMEN and PELVIS: Intraperitoneal space: Unremarkable. No free air. No significant fluid collection. Bones/joints: Degenerative changes of the spine and hips. L2 inferior endplate compression fracture deformity similar to the prior. No dislocation. Soft tissues: Left inguinal hernia containing fat. Vasculature: Stable 3.2 cm infrarenal abdominal aortic aneurysm. Lymph nodes: Unremarkable. No enlarged lymph nodes. IMPRESSION: 1. Multiple abdominal wall hernias of the anterior and right lateral abdominal wall containing multiple bowel loops. New finding of small bowel obstruction with transition point at the inferior ventral hernia near the midline. Some of the loops in the inferior ventral hernia appears thickened and there is mild mesenteric edema and fat stranding. May represent strangulation/ischemic component. 2. Markedly distended stomach with fluid and heterogeneous contents. 3. L2 inferior endplate compression fracture deformity similar to the prior. Communications: Verify Receipt Electronically signed by: Ari Fallon M.D. 08/10/23 01:35 AM KUB X-Ray 08/11/23 09:01 XR KUB/Abdomen 1 view CLINICAL HISTORY: eval SBO TECHNIQUE: 1 view of the abdomen was obtained. Comparison: Comparison is made to abdomen radiograph 08/10/[address] abdomen pelvis 08/10/2023 FINDINGS: Lung bases are unremarkable. Degenerative changes are seen in the visualized skeleton. There are a few gas dilated loops of small bowel measuring up to 38 mm. Small stool burden is seen. IMPRESSION: A few gas-distended loops of small bowel. ACT 112: Negative or not required by law. Electronically signed by: Matthew Diaz M.D. 08/11/2023 1:28 PM Pending Results Patient Have Any Pending Studies at Discharge: No Discharge Instructions Given to Patient (Per Discharging Provider) Please refer to hospital discharge summary. Total Time Total Time Spent Total Time Spent (In Minutes): >30 minutes
== END 2023-08-15 11:35 | DRG 394 ==
LOC: ED 23:41 → SUATTDRO 08-10 04:39 → EDINP 08-10 04:39 → 3E 08-10 05:42